=== PATIENT | male | born 1965 ===

== ENCOUNTER 2024-03-23 11:31 | Outpatient (AMB) | payer OTHER, SELFPAY ==
--- NOTE | 2024-03-23 11:41 | MHC.PC.OV ---
Vital Signs 03/23/24 11:55 Height 5 ft 10 in Weight 248 lb 6 oz BMI 35.6 BP 130/70 Blood Pressure Location Rt brachial Position Sitting Respiration 14 Pulse 59 Pulse Source Pulse Oximeter Temp 97.4 F Temp Source Oral Pulse Oximetry (%) 95 Oxygen Delivery Method Room Air Intake Visit Reasons: smoking pipes cleaner leg pain Intake Note: establish care and patient is also having right leg pain andLLQpain pt would like to rule out a hernia Allergies amoxicillin Allergy (Intermediate, Verified 03/23/24 11:46) Abdominal Pain bee venom protein (honey bee) Allergy (Intermediate, Verified 03/23/24 11:46) Swelling droperidol [From Inapsine] Allergy (Intermediate, Verified 03/23/24 11:46) lock jaw prochlorperazine [From Compazine] Allergy (Intermediate, Verified 03/23/24 11:46) lock jaw shellfish derived Allergy (Intermediate, Verified 03/23/24 11:46) Hives Tobacco use date assessed: 03/23/24 Dental Screening Dental Screen Date: 03/23/24 Did you have a dental visit in the last 12 months?: Yes Did you have a dental problem in the last 6 months where you did not have access to dental care?: Yes Was dental information given to patient?: Patient has dentist HPI smoking pipes cleaner leg pain HPI Details Pt 58 y/o male who presents today to establish care. He has a hx of asthma, htn, hyperlipidemia, HF, previous [place] in 1995 (due to stress collapsed vessel ), chronic kidney disease and bph. Previously following with Dr. Majano. He does complain today of bilateral lower leg pain and swelling. The right leg is worse than the left. It has been going on for about 4 years and he states that he has some skin changes because of it. He states that the right leg has this deep red discoloration and there is a little bit on the left leg but not as bad. When he walks a short distance he feels pain in his calves that go up to the back of his thigh. He states at times his right knee is also painful and swollen and he is not sure if that is why he gets the lower leg pain. No foot pain with this. The swelling is a little bit better in the morning and worse as the day goes on. He does also complain today of left lower abdominal pain that started about 4 months ago on and off but has recently been more painful in the last month. He states that he can pinpoint the location it does seem to be worse with certain movements such as straining or lifting his legs up. No nausea, vomiting or diarrhea with this. No constipation. No changes in weight. He has not felt any masses but does worried that this could be a hernia. CV: Follows with Dr. Rust and has an appointment tomorrow. No chest pain, shortness on breath or dizziness. He does report lower leg edema. States that he does have a history of heart failure and does not know his EF. 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 He is compliant with metoprolol 50 mg daily. His cholesterol has been well-controlled with atorvastatin 20 mg. Urology: followed in the past with urology and is on flomax bid. He does not feel that this is very effective. Nephro: last seen about a year ago. states that he has had kidneys close to shutting down a few times. Colonoscopy: about 10 years ago per pt. States that he would like to do a Cologuard instead [facility] Medical History (Updated 03/23/24 @ 12:32 by Jodie Husain PA-C) Asthma Plantar fasciitis Past heart attack High cholesterol Social History (Updated 03/23/24 @ 11:50 by Nitish Levin [facility]) Housing: House Patient Tobacco Use Status: Never used Tobacco e-Cigarette/Vaping Use: Never Used Second Hand Smoke Exposure: No Substance Use Type: Marijuana service: Yes Current occupational status: retired Current occupational exposures/hazards: No Cognitive needs: No Hearing needs: No Vision needs: No Questionnaire PHQ-9 Over the last 2 weeks, how often have you been bothered by any of the following problems? 1. Little interest or pleasure in doing things: not at all 2. Feeling down, depressed, or hopeless: not at all 3. Trouble falling or staying asleep, or sleeping too much: not at all 4. Feeling tired or having little energy: not at all 5. Poor appetite or overeating: not at all 6. Feeling bad about yourself - or that you are a failure or have let yourself or your family down: not at all 7. Trouble concentrating on things, such as reading the newspaper or watching television: not at all 8. Moving or speaking so slowly that other people could have noticed. Or the opposite - being so fidgety or restless that you have been moving around a lot more than usual: not at all 9. Thoughts that you would be better off or of hurting yourself in some way: not at all Total score: 0 Depression Screening Interpretation: Negative Depression Screening Done: Yes 86754 - PHQ-9 Billing: Yes Source: Developed by Drs. Uri Mcintosh, Dana Riggs, José Antonio Elizalde and colleagues, with an educational royal from [employer]. Thrive Questionnaire Date Thrive assessed: 03/23/24 I am a: Patient What is your living situation today?: I have a steady place to live Within the past 12 months, did the food you bought not last and you didn't have the money to get more?: Never true Within the past 12 months, did you worry whether your food would run out before you got money to buy more?: Never true Do you have trouble paying for medicines?: I choose not to answer this question Do you have trouble getting transportation to medical appointments?: No Do you have trouble paying your heating and electricity bill?: No Do you have trouble taking care of your child, family member or friend?: No Do you have trouble with day-to-day activities such as bathing, preparing meals, shopping, managing finances, etc.?: No Are you currently unemployed and looking for a job?: No Are you interested in more education?: No Please select the resources that you would like help with: None Currently or been in a relationship where the following occur: No concerns reported THRIVE Score: 0 AUDIT C Alcohol Use Questionnaire (AUDIT-C) 1. How often do you have a drink containing alcohol?: 2-4 times a month 2. How many drinks containing alcohol do you have on a typical day when you are drinking?: 1 or 2 3. How often do you have six or more drinks on one occasion?: Never Total Score: 2 Score Reviewed/Action Taken: Yes YURIDIA-7 AMB Questionnaire YURIDIA-7 Feeling nervous, anxious, or on edge: 0 = Not at all Not being able to stop or control worryin = Not at all Worrying too much about different things: 0 = Not at all Trouble relaxin = Not at all Being so restless that it is hard to sit still: 0 = Not at all Becoming easily annoyed or irritable: 0 = Not at all Feeling afraid as if something awful might happen: 0 = Not at all Total YURIDIA-7 score (0-4 normal; 5-9 mild; 10-14 moderate; 15-21 severe): 0 Source: Developed by Drs. Uri Mcintosh, Dana Riggs, José Antonio Elizlade and colleagues, with an educational royal from [employer]. ACT Questionnaire In the past 4 weeks, how much of the time did your asthma keep you from getting as much done at work, school or at home?: None of the time During the past 4 weeks, how often have you had shortness of breath?: More than once a day During the past 4 weeks, how often did your asthma symptoms wake you up at night or earlier than usual in the morning?: Not at all During the past 4 weeks, how often have you had to use your rescue inhaler or nebulizer medication?: Not at all How would you rate your asthma control during the past 4 weeks?: Somewhat controlled Score: 19 Physical exam (Primary Care) Vital Signs: Last Vital Signs Temp 97.4 F 03/23/24 11:55 Pulse 59 03/23/24 11:55 Resp 14 03/23/24 11:55 BP 130/70 03/23/24 11:55 Pulse Ox 95 03/23/24 11:55 Oxygen Delivery Method Room Air 03/23/24 11:55 BMI result Body Mass Index 35.6 Tobacco/Smoking Status: Tobacco use Status Tobacco use date assessed 03/23/24 03/23/24 11:57 Patient Tobacco Use Status Never used Tobacco 03/23/24 11:57 e-Cigarette/Vaping Use Never Used 03/23/24 11:57 PHQ-9: PHQ-9 Score PHQ-9: Total score 0 03/23/24 12:18 Depression Screening Interpretation: Negative Thrive Assessment: Date of Thrive Assessment Date Thrive assessed 03/23/24 03/23/24 11:57 Currently or been in a relationship where the following occur: No concerns reported Const Orientation/consciousness: patient oriented x3 HENMT Ears: hearing grossly normal bilaterally Neck Thyroid: Thyroid normal Lymphatic: no lymphadenopathy noted Resp Auscultation: clear to auscultation bilaterally Cardio Rate: regular rate Rhythm: regular rhythm Heart sounds: S1 normal heart sound present and S2 normal heart sound present GI Inspection: Yes normal to inspection Palpation (GI): Soft to palpation and Tenderness to palpation present (GI) in the LLQ Auscultation: normoactive bowel sounds Rectal Exam - Male: Yes deferred Other: No palpable hernia. Exam limited due to body habitus Skin General skin exam: no rashes or lesions noted Neuro General: patient oriented x3, gait normal and no focal motor deficits Extrem Other: There is some right calf tenderness present. Full range of motion of the leg. DP pulse on the right is 1+. DP pulse on the left is 2+. There is 2+ pitting edema of the bilateral lower legs. General: Yes venous stasis dermatitis Coding Level of Care Code New Pt Level 4 (64649) Complex EM visit Add On G2211 Diagnoses Hyperlipidemia E78.5 LLQ abdominal pain R10.32 Pain and swelling of lower leg M79.669; M79.89 Claudication of right lower extremity I73.9 Right knee pain M25.561 Additional Codes PHQ-9 - 85785 - PHQ-9 Billing: Yes ([id number]) Assessment & Plan Assessment & Plan (1) Hyperlipidemia: Code(s): E78.5 - Hyperlipidemia, unspecified Category: Medical Plan: Labs ordered. We will follow up pending test results (2) LLQ abdominal pain: Code(s): R10.32 - Left lower quadrant pain Category: Medical Plan: CT abdomen and pelvis ordered. We had reviewed signs and symptoms of abdominal pain that would require emergent medical treatment including increased pain, fever, nausea, vomiting etc.. He will contact me if anything worsens or changes prior to her follow up (3) Pain and swelling of lower leg: Code(s): M79.669 - Pain in unspecified lower leg; M79.89 - Other specified soft tissue disorders Category: Medical Plan: Ultrasounds ordered. Referral to vascular surgery. (4) Pain and swelling of lower leg: Code(s): M79.669 - Pain in unspecified lower leg; M79.89 - Other specified soft tissue disorders Category: Medical Plan: . (5) Claudication of right lower extremity: Code(s): I73.9 - Peripheral vascular disease, unspecified Category: Medical Plan: . (6) Right knee pain: Code(s): M25.561 - Pain in right knee Category: Medical Plan: xr ordered referral ortho Orders: Orders Complete Blood Count Auto Diff Today E78.5 - Hyperlipidemia, unspecified, R10.32 - Left lower quadrant pain Comprehensive [place]. Panel Fast Today E78.5 - Hyperlipidemia, unspecified, R10.32 - Left lower quadrant pain Lipid Panel Today E78.5 - Hyperlipidemia, unspecified, R10.32 - Left lower quadrant pain XR knee RT 2V Today M25.561 - Pain in right knee, M25.562 - Pain in left knee TSH reflex Free T4 Today E78.5 - Hyperlipidemia, unspecified, R10.32 - Left lower quadrant pain UA CC w/rflx Micro + Cult Today E78.5 - Hyperlipidemia, unspecified, R10.32 - Left lower quadrant pain, Z13.220 - Encounter for screening for lipoid disorders Prostate Specific Antigen Scr Today E78.5 - Hyperlipidemia, unspecified, R10.32 - Left lower quadrant pain, Z01.89 - Encounter for other specified special examinations US venous duplex LE BI Today M79.669 - Pain in unspecified lower leg, M79.89 - Other specified soft tissue disorders CT abdomen pelvis wo IV con Today R10.32 - Left lower quadrant pain Referrals Vascular Surgery Referral I73.9 - Peripheral vascular disease, unspecified, M79.669 - Pain in unspecified lower leg, M79.89 - Other specified soft tissue disorders Orthopedics Referral M25.561 - Pain in right knee Cologuard Test Z12.11 - Encounter for screening for malignant neoplasm of colon Patient Instructions: Get fasting labs here knee xray ordered- ok to do at [facility] scan ordered for the left lower abdominal pain- they will call to schedule. call me if you do not hear anything in 1 week u/s were ordered of the legs due to pain and swelling- again they call you to book i have referred you to orthopedics for the knee pain referral for vascular doc due to pain in calves with walking and needing to rest, ?claudication- you do have a slightly decreased pulse in the right foot. i ordered a cologuard- this will be mailed to you short term follow up in 1 month
[2024-03-23 11:55] VITALS: BP 130/70; PULSE 59; RESP 14; TEMP 36.3; O2SAT 95; BMI 35.6
== END 2024-03-23 12:39 | disposition home or self-care (01) ==
PROVIDERS: PCP Internal Medicine; Visit Provider Physician Assistant
DX: E78.5 Hyperlipidemia, unspecified (principal); I73.9 Peripheral vascular disease, unspecified; R10.32 Left lower quadrant pain; M79.661 Pain in right lower leg; M79.89 Other specified soft tissue disorders; M25.561 Pain in right knee

== ENCOUNTER → 2024-03-23 11:31 | Outpatient (BNVA) | payer OTHER, SELFPAY | PROVIDERS: PCP Internal Medicine; Visit Provider Physician Assistant | DX: M79.89 Other specified soft tissue disorders (principal); M79.604 Pain in right leg; E78.5 Hyperlipidemia, unspecified; R10.32 Left lower quadrant pain; I73.9 Peripheral vascular disease, unspecified; M25.561 Pain in right knee; I10 Essential (primary) hypertension; J45.909 Unspecified asthma, uncomplicated; I25.2 Old myocardial infarction; Z79.899 Other long term (current) drug therapy | CPT/HCPCS: 96127; 96160 ==

== ENCOUNTER 2024-03-25 10:44 | Outpatient (REF) | payer OTHER, SELFPAY ==
[2024-03-25 14:00] LABS: MANUAL DIFF FLAG NO
[2024-03-25 14:07] LABS: Basophils Absolute Auto 0.1 X10*3/uL (0.0-0.2); Basophils Percent Auto 1.1 % (0-2); Eosinophils Absolute Auto 0.3 X10*3/uL (0.0-0.4); Eosinophils Percent Auto 4.7 % (0-4); Hematocrit 45.9 % (42.0-52.0); Imm Gran Abs Auto 0.02 X10*3/uL (0.00-0.03); Imm Gran Pct Auto 0.4 % (0.0-0.4); Lymphocytes Absolute Auto 1.1 X10*3/uL (1.2-4.9); Lymphocytes Percent Auto 19.9 % (20-40); Mean Corpuscular HGB Conc 32.7 g/dl (31.0-36.0); Mean Corpuscular Hemoglobin 30.7 pg (27.0-33.0); Mean Corpuscular Volume 93.9 fL (80.0-98.0); Mean Platelet Volume 9.9 fL (9.4-12.4); Monocytes Absolute Auto 0.4 X10*3/uL (0.1-1.2); Monocytes Percent Auto 6.4 % (2-11); Neutrophils Absolute Auto 3.7 x10*3/uL (2.0-8.3); Neutrophils Percent Auto 67.5 % (45-73); Platelet Count 141 X10*3/uL (160-400); Red Blood Count 4.89 X10*6/uL (4.60-5.80); Red Cell Distribution Width 13.6 % (11.0-16.0); White Blood Count 5.5 X10*3/uL (4.8-10.8)
[2024-03-25 14:24] LABS: Appearance Urine Clear; Color Urine Yellow; Glucose Urine UA Negative (Negative); Leukocyte Esterase Urine Negative (Negative); Nitrite Urine Negative (Negative); PH 6.5 (5.0-9.0); Specific Gravity - Urine 1.015 (1.005-1.025); Urine Blood Negative (Negative); Urine Ketones Negative (Negative); Urine Protein Negative (Neg-Trace)
[2024-03-25 14:25] LABS: Alanine Aminotransferase 38 U/L (0-40); Albumin Level 4.2 g/dL (3.5-5.0); Alkaline Phosphatase 80 U/L (39-117); Anion Gap 9 (12-20); Aspartate Amino Transferase 26 U/L (5-37); Bilirubin Total 1.1 mg/dL (0.0-1.0); Blood Urea Nitrogen 18 mg/dL (9-16); Calcium 9.2 mg/dL (8.4-10.2); Carbon Dioxide 31 mmol/L (22-29); Chloride 106 mmol/L (96-108); Cholesterol 136 mg/dL (<200); Estimated Glomerular Filt Rate > 60; Glucose Fasting 91 mg/dL (60-99); HDL Cholesterol 56 mg/dL (>40); LDL Cholesterol Calculated 65 mg/dL (<100); Potassium 4.2 mmol/L (3.3-5.1); Sodium 142 mmol/L (135-145); Total Protein 6.8 g/dL (6.5-8.0); Triglycerides 77 mg/dL (<150)
[2024-03-25 14:44] LABS: TSH reflex Free T4 0.16 uIU/mL (0.32-4.0)
[2024-03-25 15:28] LABS: Free T4 (Free Thyroxine) 1.28 ng/dL (0.71-1.85)
== END 2024-03-25 10:45 | disposition home or self-care (01) ==
LOC: HO.WFDLDS 10:44
PROVIDERS: Visit Provider Physician Assistant
DX: E78.5 Hyperlipidemia, unspecified (principal); R10.32 Left lower quadrant pain; Z01.89 Encounter for other specified special examinations; Z13.220 Encounter for screening for lipoid disorders; Z12.5 Encounter for screening for malignant neoplasm of prostate
CPT/HCPCS: 36415; 80053; 80061; 81003; 84153; 84439; 84443; 85025

== ENCOUNTER 2024-04-05 11:26 | Outpatient (AMB) | payer OTHER, SELFPAY ==
--- NOTE | 2024-04-05 11:29 | A.OFFVIS_ITS ---
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 States both legs are discolored and painful but the right is worse. 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 He states that he first noted the discoloration appx 20y ago and the swelling and pain has worsened over the last 4y. 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 He states he is trying to be more physically active. 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 It has been affecting their daily activities including walking, standing, sitting, and physical activity. It is noted in bilateral legs. Patient denies any previous venous surgery or injections. Patient states he believes he was treated for blood clots s/p [place] in 1995; he states he was on blood thinners for some time Patient denies any history of phlebitis. Trial of compression includes - compression stockings with some relief They now present for vascular evaluation regarding their varicose veins. [facility] Medical History Asthma Plantar fasciitis Past heart attack High cholesterol Social History Housing: House Patient Tobacco Use Status: Never used Tobacco e-Cigarette/Vaping Use: Never Used Second Hand Smoke Exposure: No Substance Use Type: Marijuana service: Yes Current occupational status: retired Current occupational exposures/hazards: No Cognitive needs: No Hearing needs: No Vision needs: No Review of Systems Const Reports as per HPI and Denies weakness ENT Reports Normal hearing present and Denies dizziness Card Reports as per HPI, Denies chest pain, Denies chest pain at rest, Denies chest pain with activity, Denies dyspnea and Denies dyspnea on exertion Resp Reports as per HPI, Denies cough, Denies dyspnea and Denies dyspnea on exertion GI Reports as per HPI, Denies abdominal pain, Denies nausea and Denies vomiting Musc Denies numbness Skin/Breast Reports as per HPI, Denies erythema and Denies wounds Neuro Reports Normal hearing present, Denies dizziness, Denies numbness, Denies Sensory deficit (Neuro) and Denies weakness Psych Reports no additional complaints Endo Reports no additional complaints Physical Exam Const General: healthy appearing and no acute distress Orientation/consciousness: patient oriented x3 HEENT Head: Yes normal to inspection Ears: hearing grossly normal bilaterally Mouth: Normal oral and palatal mucosa present Resp Effort & Inspection: normal respiratory effort and able to speak in complete sentences Auscultation: clear to auscultation bilaterally Cardio Jugular venous distension: no JVD Rate: regular rate Rhythm: regular rhythm Heart sounds: S1 normal heart sound present and S2 normal heart sound present Bruits: no abdominal aortic bruits, no carotid bruits, no femoral bruits and no renal bruits Peripheral pulses: Peripheral pulses 2+ throughout GI Inspection: Yes normal to inspection Palpation (GI): No Abdominal aortic bruit present Skin General skin exam: no rashes or lesions noted Wounds: no wounds Hair: normal Neuro General: patient oriented x3 Cranial nerves: Yes Normal hearing present Cognition (Neuro): normal cognition Gait exam (Neuro): Normal gait present Motor exam (neuro): 5/5 motor strength present throughout Sensory Exam: No Sensory deficit (Neuro) Extrem Other: Bilateral lower extremities: darker erythematous discoloration noted from mid- vidales down to the ankles circumferentially. Trace peripheral edema noted. Palpable DP pulses. No wounds or ulcerations noted. CEAP: C - 4 E - primary A - supeficial P - reflux General: Yes normal to inspection, Yes full ROM, Yes capillary refill normal and Yes normal gait Assessment & Plan Assessment & Plan (1) Varicose veins of both lower extremities with inflammation: Code(s): I83.11 - Varicose veins of right lower extremity with inflammation; I83.12 - Varicose veins of left lower extremity with inflammation Category: Medical Plan: Matthew is presenting today on a referral from his PCP for ongoing bilateral lower extremity swelling, pain, and discoloration. His PCP has already ordered a duplex ultrasound, the patient states that it is scheduled for this . I discussed with the patient to give us a call back after the ultrasound has been performed and we will schedule a follow up visit. I discussed the importance of continuing with compression stockings daily as well as elevating his legs while he is sitting. We discussed the importance of physical activity. In short, the patient has evidence of venous insufficiency. I have discussed the pathophysiology with the patient. The patient had an opportunity to ask questions regarding the treatment plan. All questions were answered. Imaging studies, laboratory studies and physical exam results were discussed and reviewed in detail. No major barriers to understanding were identified. The patient expressed understanding and agreement with the above treatment plan. The patient is aware they should contact our office by phone for worsening of the current condition or the appearance of new symptoms. Thank you for allowing me to participate in the vascular care of this patient. If you have any questions or concerns regarding the treatment for the above condition please do not hesitate to contact me. The office telephone contact is [phone]. This note is constructed using voice recognition software. While every effort has been made to ensure accuracy, cfa errors may have been included. Thank you for allowing me to participate in the care of your patient. Yours sincerely, DINORA García Coding Level of Care Code New Pt Level 4 (09319) Diagnoses Varicose veins of both lower extremities with inflammation I83.11; I83.12
== END 2024-04-05 13:20 | disposition home or self-care (01) ==
PROVIDERS: PCP Internal Medicine; Visit Provider Physician Assistant Surgical
DX: I83.11 Varicose veins of right lower extremity with inflammation (principal); I83.12 Varicose veins of left lower extremity with inflammation
CPT/HCPCS: 99204

== ENCOUNTER → 2024-04-05 11:26 | Outpatient (BNVA) | payer OTHER, SELFPAY | PROVIDERS: PCP Internal Medicine; Visit Provider Physician Assistant Surgical ==

== ENCOUNTER 2024-04-07 08:36 | Outpatient (REF) | payer OTHER, SELFPAY ==
--- NOTE | ~2024-04-07 | US_ITS ---
EXAMINATION: US LOWER EXTREMITY VENOUS (REFLUX EXAM), BILATERAL CLINICAL INFORMATION: Pain in the lower extremities. COMPARISON: None. TECHNIQUE: Color flow triplex imaging and compression Doppler was performed to evaluate both the deep and the superficial systems bilaterally. To evaluate the superficial system, the examination was performed in the upright position. Color-flow Doppler ultrasound and compression ultrasound were utilized. In addition, maneuvers were utilized to demonstrate reflux. FINDINGS: 1. DEEP VENOUS ULTRASOUND OF THE RIGHT LOWER EXTREMITY: Common Femoral Vein: Compressible, normal respiratory variation and augmented flow. Femoral Vein: Compressible, normal color flow and augmentation. Popliteal Vein: Compressible, normal augmentation. Deep Reflux: There is no evidence of reflux in the deep system in either the common femoral vein, superficial femoral or the popliteal vein. There is no evidence of a Vann's cyst. 2. SUPERFICIAL ULTRASOUND WITH DOPPLER OF RIGHT LOWER EXTREMITY: GREAT SAPHENOUS VEIN: Saphenofemoral Junction: 0.9 cm; Reflux: 0 ms Proximal Thigh: 0.5 cm; Reflux: 0 ms Mid Thigh: 0.4 cm; Reflux: 0 ms Distal Thigh: 0.4 cm; Reflux: 0 ms At Knee: 0.3 cm; Reflux: 0 ms Proximal Calf: 0.3 cm; Reflux: 2724 ms Mid Calf: 0.3 cm; Reflux: 0 ms Distal Calf: 0.3 cm; Reflux: 0 ms DUPLICATED MEDIAL GREAT SAPHENOUS VEIN: Diameter: 0.3 Reflux: NA DUPLICATED LATERAL GREAT SAPHENOUS VEIN: Diameter: None imaged Reflux: NA SMALL SAPHENOUS VEIN: Saphenopopliteal Junction: 0.5 cm; Reflux: 1612 ms Proximal: 0.2 cm; Reflux: 0 ms Distal: 0.3 cm; Reflux: 976 ms VEIN OF GIACOMINI: Size: NA Reflux: NA PERFORATORS: Location: None imaged Size: NA Reflux: NA VARICOSITIES: Location: None imaged. Size: NA Reflux: NA 3. DEEP VENOUS ULTRASOUND OF THE LEFT LOWER EXTREMITY: Common Femoral Vein: Compressible, normal respiratory variation and augmented flow. Femoral Vein: Compressible, normal color flow and augmentation. Popliteal Vein: Compressible, normal augmentation. Deep Reflux: There is no evidence of reflux in the deep system in either the common femoral vein, superficial femoral or the popliteal vein. There is no evidence of a Vann's cyst. 4. SUPERFICIAL ULTRASOUND WITH DOPPLER OF LEFT LOWER EXTREMITY: GREAT SAPHENOUS VEIN: Saphenofemoral Junction: 1.0 cm; Reflux: 0 ms Proximal Thigh: 0.4 cm; Reflux: 1180 ms Mid Thigh: 0.2 cm; Reflux: 0 ms Distal Thigh: 0.3 cm; Reflux: 0 ms At Knee: 0.2 cm; Reflux: 0 ms Proximal Calf: 0.3 cm; Reflux: 0 ms Mid Calf: 0.3 cm; Reflux: 0 ms Distal Calf: 0.4 cm; Reflux: 0 ms DUPLICATED MEDIAL GREAT SAPHENOUS VEIN: Diameter: None imaged Reflux: NA DUPLICATED LATERAL GREAT SAPHENOUS VEIN: Diameter: 0.4 Reflux: NA SMALL SAPHENOUS VEIN: Saphenopopliteal Junction: 0.5 cm; Reflux: 0 ms Proximal: 0.4 cm; Reflux: 0 ms Distal: 0.3 cm; Reflux: 0 ms VEIN OF GIACOMINI: Size: 0.2 Reflux: NA PERFORATORS: Location: None imaged Size: NA Reflux: NA VARICOSITIES: Location: None Imaged Size: NA Reflux: NA US/US venous duplex LE BI IMPRESSION: Right: Venous insufficiency right great saphenous vein, below knee and right small saphenous vein. Left: Venous insufficiency left great saphenous vein at the proximal thigh. Electronically signed by: Rohit Silva MD 04/11/2024 07:46 AM EST
--- NOTE | ~2024-04-07 | XR_ITS ---
CLINICAL HISTORY: M25.561 - Pain in right knee Exam: AP and lateral views of the right knee. Comparison: None. Findings: Moderate genu varum. There is 7 mm of lateral translation of the tibia in relation to the femur. Severe degenerative change of the medial compartment with osteophyte formation and joint space narrowing resulting in [id number] alignment. Mild degenerative change of the lateral compartment and patellofemoral joint. No acute fracture. Moderate-sized knee joint effusion. Impression: Tricompartmental osteoarthritis, most pronounced within the medial compartment as above. This document has been electronically signed by: Leonardo Smith MD on 04/08/2024 09:04:08
== END 2024-04-07 08:37 | disposition home or self-care (01) ==
LOC: HO.US 08:36
PROVIDERS: PCP Internal Medicine; Visit Provider Physician Assistant
DX: I87.2 Venous insufficiency (chronic) (peripheral) (principal); M25.561 Pain in right knee; M25.562 Pain in left knee; M79.669 Pain in unspecified lower leg; M79.89 Other specified soft tissue disorders
CPT/HCPCS: 73560; 93970

== ENCOUNTER → 2024-04-07 08:46 | Outpatient (BNV) | payer OTHER, SELFPAY | PROVIDERS: PCP Internal Medicine; Visit Provider Radiology Diagnostic Radiology | DX: M79.604 Pain in right leg (principal); M79.605 Pain in left leg | CPT/HCPCS: 73560; 93970 ==

== ENCOUNTER 2024-04-11 09:29 | Outpatient (REF) | payer OTHER, SELFPAY ==
[2024-04-11 11:26] LABS: MANUAL DIFF FLAG NO
[2024-04-11 11:34] LABS: Basophils Absolute Auto 0.1 X10*3/uL (0.0-0.2); Basophils Percent Auto 0.8 % (0-2); Eosinophils Absolute Auto 0.3 X10*3/uL (0.0-0.4); Eosinophils Percent Auto 4.2 % (0-4); Hematocrit 46.9 % (42.0-52.0); Hemoglobin 15.3 g/dl (14.0-18.0); Imm Gran Abs Auto 0.02 X10*3/uL (0.00-0.03); Imm Gran Pct Auto 0.3 % (0.0-0.4); Lymphocytes Absolute Auto 1.3 X10*3/uL (1.2-4.9); Lymphocytes Percent Auto 19.6 % (20-40); Mean Corpuscular HGB Conc 32.6 g/dl (31.0-36.0); Mean Corpuscular Hemoglobin 30.7 pg (27.0-33.0); Mean Corpuscular Volume 94.2 fL (80.0-98.0); Mean Platelet Volume 10.3 fL (9.4-12.4); Monocytes Absolute Auto 0.3 X10*3/uL (0.1-1.2); Monocytes Percent Auto 5.2 % (2-11); Neutrophils Absolute Auto 4.5 x10*3/uL (2.0-8.3); Neutrophils Percent Auto 69.9 % (45-73); Platelet Count 144 X10*3/uL (160-400); Red Blood Count 4.98 X10*6/uL (4.60-5.80); Red Cell Distribution Width 13.6 % (11.0-16.0); White Blood Count 6.5 X10*3/uL (4.8-10.8)
[2024-04-11 12:09] LABS: Alanine Aminotransferase 30 U/L (0-40); Albumin Level 4.2 g/dL (3.5-5.0); Alkaline Phosphatase 85 U/L (39-117); Anion Gap 9 (12-20); Aspartate Amino Transferase 25 U/L (5-37); Bilirubin Total 1.1 mg/dL (0.0-1.0); Blood Urea Nitrogen 14 mg/dL (9-16); Calcium 9.6 mg/dL (8.4-10.2); Carbon Dioxide 31 mmol/L (22-29); Chloride 107 mmol/L (96-108); Estimated Glomerular Filt Rate > 60; Glucose Random 103 mg/dL (60-115); Potassium 4.7 mmol/L (3.3-5.1); Sodium 142 mmol/L (135-145)
[2024-04-11 13:01] LABS: Free T4 (Free Thyroxine) 1.21 ng/dL (0.71-1.85)
== END 2024-04-11 09:30 | disposition home or self-care (01) ==
LOC: HO.WFDLDS 09:29
PROVIDERS: Visit Provider Physician Assistant
DX: D69.1 Qualitative platelet defects (principal); R17 Unspecified jaundice; R79.89 Other specified abnormal findings of blood chemistry; E03.9 Hypothyroidism, unspecified
CPT/HCPCS: 36415; 80053; 84439; 84443; 85025

== ENCOUNTER 2024-04-26 10:25 | Outpatient (AMB) | payer OTHER, SELFPAY ==
--- NOTE | 2024-04-26 11:10 | MHC.OFFWIV ---
Intake Vital Signs 04/26/24 11:14 Height 5 ft 10 in Weight 245 lb 6 oz BMI 35.2 BP 120/72 Blood Pressure Location Lt brachial Position Sitting Respiration 16 Pulse 59 Pulse Source Pulse Oximeter Temp 97.9 F Temp Source Oral Pulse Oximetry (%) 95 Oxygen Delivery Method Room Air Intake Visit Reasons: something in eye/eye pain (left) Intake Note: Splashed wtih sink water in left eye a week ago. Patient Tobacco Use Status: Never used Tobacco Allergies amoxicillin Allergy (Intermediate, Verified 04/26/24 11:13) Abdominal Pain bee venom protein (honey bee) Allergy (Intermediate, Verified 04/26/24 11:13) Swelling droperidol [From Inapsine] Allergy (Intermediate, Verified 04/26/24 11:13) lock jaw prochlorperazine [From Compazine] Allergy (Intermediate, Verified 04/26/24 11:13) lock jaw shellfish derived Allergy (Intermediate, Verified 04/26/24 11:13) Hives HPI HPI Comments History of Present Illness Details 58-year-old male presenting with left eye irritation following an incident one week ago where he was splashed with contaminated drain water while cleaning. He reports feeling a sensation similar to pressure & irritation in the left eye, though he has not observed any redness or swelling. The sensation of something being in the eye persists, although no foreign body is visible. The patient denies experiencing any sensation of sand or grit in the eye or noticing any swelling. He mentions a minor headache associated with the eye irritation but reports that vision in the affected eye remains intact. ollowing the initial exposure, the patient did flush the eye with water, both immediately post-incident and during subsequent showers. T Td2002 There is no history of recent eye examinations, with the last one conducted approximately two years ago. Exam Awake alert NAD PERRLA, EOMI, no drainage, no lid edema, no photophobia, no erythema vision WNL TM mild congestion on L Turbinates edematous, pale on L side Speaking in full sentences Discussion Notes During the consultation, I discussed the absence of visible eye injury and the plan to prescribe an antibiotic eye ointment to mitigate any potential infection from the trauma. We reviewed the patient's allergies to ensure the prescribed treatments would not interfere. The ointment may cause temporary blurred vision due to its ointment base, making the eyes appear greasy; however, I advised against using tissues to wipe it to avoid irritation. Furthermore, a tetanus booster is recommended given the last recorded Tdap being in 2002. I also emphasized the importance of following up with an addiction specialist for a thorough examination, referring the patient to Dr. Quiñones, an eye doctor located conveniently across from the patient's residence. The necessity of scheduling promptly and the steps to do so were communicated, including providing information for [facility]. Finally, we arranged for his tetanus shot to be administered during the same visit. Plan I prescribed an antibiotic eye ointment tailored to the patient's allergy profile to address the potential eye trauma and prevent infection following exposure to contaminated water. The application of this ointment, though potentially visually impairing while in use, should aid in symptom resolution. Ensuring tetanus prophylaxis, the patient will receive a booster to align with current recommendations, thereby mitigating the risk of tetanus infection. Furthermore, due to the ongoing eye symptoms and for preventive measures, I recommended an addiction specialist referral for comprehensive ocular evaluation to rule out any underlying issues that were not visible in the initial examination. The patient was guided to promptly engage with [facility] and made aware of expected side effects and follow-up steps. These interventions aim to thoroughly address the current presenting concern and uphold preventive health measures. Patient was informed and verbally consented to the use of an ambient scribe for clinic note documentation during this visit. [facility] Medical History Asthma Plantar fasciitis Past heart attack High cholesterol Social History Housing: House Patient Tobacco Use Status: Never used Tobacco e-Cigarette/Vaping Use: Never Used Second Hand Smoke Exposure: No Substance Use Type: Marijuana service: Yes Current occupational status: retired Current occupational exposures/hazards: No Cognitive needs: No Hearing needs: No Vision needs: No Physical Exam Vital Signs: Last Vital Signs Temp 97.9 F 04/26/24 11:14 Pulse 59 04/26/24 11:14 Resp 16 04/26/24 11:14 BP 120/72 04/26/24 11:14 Pulse Ox 95 04/26/24 11:14 Oxygen Delivery Method Room Air 04/26/24 11:14 BMI result Body Mass Index 35.2 Immunizations Boostrix Tdap 2.5 Lf unit-8 mcg-5 Lf/0.5 mL intramuscular syringe Performing Provider: WILNER Mosley Performing Location: [facility] [place] [facility] Administered by: Eliana Khan CMA on 04/26/24 14:01 Dose Route Admin Location Dispensed Lot Number Expiration Date NDC Dog Daycare Provider 0.5 mL IM Left Deltoid 0.5 mL [id number] 04/06/26 [id number] RecordSled VIS Given Date VIS Provided VIS Publication Date 04/26/24 Single Vaccine 20 Eligibility Eligibility Date Funding Source Not [facility] Eligible 04/26/24 Private Assessment & Plan Assessment & Plan (1) Left eye trauma: Code(s): S05.92XA - Unspecified injury of left eye and orbit, initial encounter Qualifiers: Encounter type: initial encounter Qualified Code(s): S05.92XA - Unspecified injury of left eye and orbit, initial encounter (2) Need for Tdap vaccination: Code(s): Z23 - Encounter for immunization Plan . Orders: Orders TDaP Immunization Today Z23 - Encounter for immunization Referrals Ophthalmology Referral S05.92XA - Unspecified injury of left eye and orbit, initial encounter Medications: New erythromycin 0.5 inches ophthalmic (eye) BID 5 days 3.5 grams 0RF Boostrix Tdap (diphth,pertus(acell),tetanus) 0.5 mL IM ONCE 0.5 mL 0RF NS Z23 - Encounter for immunization Patient Instructions: Patient Instructions - Apply the antibiotic eye ointment twice daily for five days to the affected left eye. - Avoid wiping the eye with tissues after applying the ointment; instead, use a clean cotton cloth. - Be aware of potential temporary blurred vision and sensitivity to light while using the ointment. - Schedule an eye exam with [facility] for further assessment of the eye. - Receive the tetanus booster during this visit. - Follow up with primary care physician Jodie as needed. - Contact [facility] to schedule an appointment rather than waiting for their call. Coding Level of Care Code Est Pt Level 3 (22476) Diagnoses Left eye injury, initial encounter S05.92XA Encounter type: initial encounter Need for Tdap vaccination Z23
[2024-04-26 11:14] VITALS: BP 120/72; PULSE 59; RESP 16; TEMP 36.6; O2SAT 95; BMI 35.2
== END 2024-04-26 11:53 | disposition home or self-care (01) ==
LOC: HO.HMCWIW 10:25
PROVIDERS: PCP Physician Assistant; Visit Provider Nurse Practitioner Family
DX: S05.92XA Unspecified injury of left eye and orbit, initial encounter (principal); Z23 Encounter for immunization

== ENCOUNTER → 2024-04-26 10:25 | Outpatient (BNVA) | payer OTHER, SELFPAY | PROVIDERS: PCP Physician Assistant; Visit Provider Nurse Practitioner Family | DX: S05.92XA Unspecified injury of left eye and orbit, initial encounter (principal); Z23 Encounter for immunization; X58.XXXA Exposure to other specified factors, initial encounter; Y93.E9 Activity, other interior property and clothing maintenance; Y92.9 Unspecified place or not applicable; Y99.9 Unspecified external cause status | CPT/HCPCS: 90471; 90715 ==

== ENCOUNTER 2024-04-27 08:25 | Outpatient (REF) | payer OTHER, SELFPAY ==
--- NOTE | ~2024-04-27 | XR_ITS ---
CLINICAL HISTORY: M25.562 - Pain in left knee 1v AP Standing Bilateral knees Comparison: CR - XR KNEE RT 2V - 04/07/24 08:57 EST Findings: Upright image of both knees identified. No fractures or dislocations. Mild joint space narrowing in the medial compartments, right more than left. No joint effusion. No radiopaque foreign body. IMPRESSION: 1. No acute findings. This document has been electronically signed by: Ezequiel Espinosa MD on 04/27/2024 22:15:17
--- NOTE | ~2024-04-27 | XR_ITS ---
CLINICAL HISTORY: M25.569 - Pain in unspecified knee 1 view right knee Comparison: DX - XR KNEE LT 1V - 04/27/24 11:09 EST CR - XR KNEE RT 2V - 04/07/24 08:57 EST Findings: Single sunrise view of the right knee obtained. Bones intact. No dislocations. No significant arthritic change or erosions. No radiopaque foreign body. IMPRESSION: 1. No acute findings. This document has been electronically signed by: Ezequiel Espinosa MD on 04/27/2024 20:58:58
== END 2024-04-27 08:26 | disposition home or self-care (01) ==
LOC: HO.HOSX 08:25
PROVIDERS: Visit Provider Physician Assistant
DX: M17.11 Unilateral primary osteoarthritis, right knee (principal); M25.562 Pain in left knee
CPT/HCPCS: 73560

== ENCOUNTER 2024-04-27 10:55 | Outpatient (AMB) | payer OTHER, SELFPAY ==
[2024-04-27 11:23] VITALS: BMI 35.2
--- NOTE | 2024-04-27 11:23 | MHC.OFFVIS ---
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 Patient has previously seen vascular for concerns of bilateral lower leg pain and swelling, Right>Left. Patient reports that he has had this pain for about 4-5 years now. He has seen physical therapy with no relief. His pain is felt from the foot all the way up to the groin area. The knees pop and snap with bending. He also complaints of left hip pain. Denies numbness and tingling Allergies amoxicillin Allergy (Intermediate, Verified 04/26/24 11:13) Abdominal Pain bee venom protein (honey bee) Allergy (Intermediate, Verified 04/26/24 11:13) Swelling droperidol [From Inapsine] Allergy (Intermediate, Verified 04/26/24 11:13) lock jaw prochlorperazine [From Compazine] Allergy (Intermediate, Verified 04/26/24 11:13) lock jaw shellfish derived Allergy (Intermediate, Verified 04/26/24 11:13) Hives Medication List - Last Reconciled 04/27/24 by Cheko Trinidad PA-C albuterol sulfate 90 mcg/actuation 1 puff inhalation Q4-6H PRN atorvastatin 20 mg PO DAILY budesonide-formoterol 160-4.5 mcg/actuation (Symbicort) 2 puffs inhalation BID PRN erythromycin 0.5 inches ophthalmic (eye) BID 5 days metoprolol succinate ER 50 mg PO DAILY tamsulosin 0.4 mg PO BID HPI HPI PAIN MEDICINE PHYSICIAN- Right knee pain: Details: 58-year-old gentleman presents to the office today for pain in the right knee. He states the pain is worse with prolonged walking and standing. He was seen vascular for lower leg pain. He had an ultrasound which showed bilateral venous insufficiency. [facility] Medical History Asthma Plantar fasciitis Past heart attack High cholesterol Social History Housing: House Patient Tobacco Use Status: Never used Tobacco e-Cigarette/Vaping Use: Never Used Second Hand Smoke Exposure: No Substance Use Type: Marijuana service: Yes Current occupational status: retired Current occupational exposures/hazards: No Cognitive needs: No Hearing needs: No Vision needs: No Review of Systems Const All systems reviewed & are unremarkable except as noted in HPI and below Physical Exam Vital Signs: BMI result Body Mass Index 35.2 Const General: cooperative and no acute distress Orientation/consciousness: patient oriented x3 Resp Effort & Inspection: normal respiratory effort and able to speak in complete sentences Cardio Peripheral pulses: Peripheral pulses 2+ throughout Neuro General: patient oriented x3 Extrem Other: Right knee skin intact, no erythema or joint effusion. Tenderness along the medial joint line. ROM full with crepitus. Negative steinmans. No ligamentous laxity. NVI. Results Reviewed Results Reviewed: Xrays were obtained in the office today and personally reviewed by me of the right knee show moderate medial compartment narrowing Assessment & Plan Assessment & Plan (1) Osteoarthritis of right knee: Code(s): M17.11 - Unilateral primary osteoarthritis, right knee Category: Medical Plan: We discussed options which include PT, NSAIDs and injections. He will defer on the injection today and proceed with PT and NSAIDs. He was fit for genumen knee brace, If symptoms persist she will contact me for an injection, otherwise, prn. Orders: Orders XR knee RT 2V Today M25.569 - Pain in unspecified knee XR knee LT 1V Today M25.562 - Pain in left knee PT Evaluation and Treatment Today M17.11 - Unilateral primary osteoarthritis, right knee Coding Level of Care Code Est Pt Level 3 (63031) Complex EM visit Add On G2211 Diagnoses Osteoarthritis of right knee M17.11
== END 2024-04-27 11:56 | disposition home or self-care (01) ==
PROVIDERS: PCP Internal Medicine; Visit Provider Physician Assistant
DX: M17.11 Unilateral primary osteoarthritis, right knee (principal)
CPT/HCPCS: 99203

== ENCOUNTER → 2024-04-27 11:09 | Outpatient (BNV) | payer OTHER, SELFPAY | PROVIDERS: Visit Provider Radiology Diagnostic Radiology | DX: M25.562 Pain in left knee (principal); M25.561 Pain in right knee | CPT/HCPCS: 73560 ==

== ENCOUNTER 2024-05-05 10:17 | Outpatient (AMB) | payer OTHER, SELFPAY ==
--- NOTE | 2024-05-05 10:22 | A.OFFVIS_ITS ---
Intake Visit Reasons: follow up s/p US 04/07/24 Intake Note: Patient presents for follow up US performed on 04/07/24. No complaints. Accompanied by: Self / Same As Patient Allergies amoxicillin Allergy (Intermediate, Verified 05/05/24 10:23) Abdominal Pain bee venom protein (honey bee) Allergy (Intermediate, Verified 05/05/24 10:23) Swelling droperidol [From Inapsine] Allergy (Intermediate, Verified 05/05/24 10:23) lock jaw prochlorperazine [From Compazine] Allergy (Intermediate, Verified 05/05/24 10:23) lock jaw shellfish derived Allergy (Intermediate, Verified 05/05/24 10:23) Hives HPI HPI follow up s/p US 04/07/24: Details: Very pleasant 58-year-old gentleman presents for follow-up regarding venous disease. He reports that he has swelling right more so than left. He has noted progressive swelling over the last 4 years. 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 Does use compression with minimal relief. He is concerned about the overall status of his legs and somewhat of his skin discoloration. Now presents for follow-up with venous insufficiency testing. [facility] Medical History Asthma Plantar fasciitis Past heart attack High cholesterol Social History Housing: House Patient Tobacco Use Status: Never used Tobacco e-Cigarette/Vaping Use: Never Used Second Hand Smoke Exposure: No Substance Use Type: Marijuana service: Yes Current occupational status: retired Current occupational exposures/hazards: No Cognitive needs: No Hearing needs: No Vision needs: No Review of Systems Const Reports as per HPI ENT Reports no additional complaints Card Denies chest pain, Denies chest pain at rest and Denies chest pain with activity Resp Denies chest congestion and Denies cough GI Reports no additional complaints Musc Details: pain over varicosities, aching of lower extremities, swelling, cramping, heaviness and tiredness, itching Denies abnormal gait Skin/Breast Reports pruritus and Denies wounds Neuro Reports no additional complaints and Denies abnormal gait Psych Denies no additional complaints Physical Exam Const General: cooperative, healthy appearing and comfortable Orientation/consciousness: oriented to person, oriented to place and oriented to time Neck Carotids: no bruits Chest Chest palpation & inspection: normal inspection of the chest and normal palpation of entire chest wall Resp Effort & Inspection: normal respiratory effort and able to speak in complete sentences Cardio Rate: regular rate Heart sounds: S1 normal heart sound present and S2 normal heart sound present Peripheral pulses: Peripheral pulses 2+ throughout GI Inspection: Yes normal to inspection Skin Other: +2 edema CEAP Classification C4 - skin color changes Ep - Etiology Primary As - superficial veins P - reflux General skin exam: dry skin Neuro General: oriented to person, oriented to place and oriented to time Extrem Right lower extremity: full ROM, normal capillary refill and edema Left lower extremity: full ROM, normal capillary refill and edema Psych Mental Status: mental status grossly normal Results Reviewed Results Reviewed: Brief summary of venous insufficiency testing is as follows: right great saphenous vein: Focally positive at knee right small saphenous vein: Positive right accessory vein: none present left great saphenous vein: Focally positive proximal thigh left small saphenous vein: negative left accessory vein: none present Please note there is no evidence of any venous aneurysms or significant tortuosity Assessment & Plan Assessment & Plan (1) Varicose veins of right lower extremity with inflammation: Code(s): I83.11 - Varicose veins of right lower extremity with inflammation Category: Medical Plan: This patient has varicose veins with inflammation. They continue to be a source of discomfort for the patient. The patient has tried conservative treatment with compression, leg elevation and exercise program for over 3 months time. They have been compliant with all treatment. This has provided minimal relief for the patient. I do not anticipate this course of treatment will alter the underlying etiology. The patient has been scheduled for lower extremity venous treatment inclusive of --- right small saphenous vein radiofrequency abla tion. Risks, benefits, and complications of this procedure has been discussed in detail with the patient including but not limited to bleeding, infection, and the development of a DVT. The patient has demonstrated a clear understanding and has consented. We will schedule the patient as soon as possible. Thank you for allowing us to participate in this patient's care. If there are any quest ions or concerns please do not hesitate to contact us. Coding Level of Care Code Est Pt Level 4 (07173) Diagnoses Varicose veins of right lower extremity with inflammation I83.11
== END 2024-05-05 10:57 | disposition home or self-care (01) ==
PROVIDERS: PCP Physician Assistant; Visit Provider Surgery Vascular Surgery
DX: I83.11 Varicose veins of right lower extremity with inflammation (principal)
CPT/HCPCS: 99214

== ENCOUNTER 2024-05-12 09:20 | Outpatient (AMB) | payer OTHER, SELFPAY ==
--- NOTE | 2024-05-12 09:31 | MHC.PC.OV ---
Vital Signs 05/12/24 09:36 Height 5 ft 10 in Weight 241 lb 4 oz BMI 34.6 BP 126/68 Blood Pressure Location Lt brachial Position Sitting Respiration 16 Pulse 63 Pulse Source Pulse Oximeter Temp 98.2 F Temp Source Oral Pulse Oximetry (%) 96 Oxygen Delivery Method Room Air Intake Visit Reasons: F/U labs & pain Intake Note: Follow up labs. Feeling fatigued, dizzy, diarrhea, nausea. Symptoms started two weeks ago. Seemed to start after taking antibiotic. Completed antibitotic yesterday. Bobbin Coil Winder Required: No Allergies amoxicillin Allergy (Intermediate, Verified 05/12/24 09:32) Abdominal Pain bee venom protein (honey bee) Allergy (Intermediate, Verified 05/12/24 09:32) Swelling droperidol [From Inapsine] Allergy (Intermediate, Verified 05/12/24 09:32) lock jaw prochlorperazine [From Compazine] Allergy (Intermediate, Verified 05/12/24 09:32) lock jaw shellfish derived Allergy (Intermediate, Verified 05/12/24 09:32) Hives Medication List - Last Reconciled 05/12/24 by Jodie Husain PA-C albuterol sulfate 90 mcg/actuation 1 puff inhalation Q4-6H PRN atorvastatin 20 mg PO DAILY budesonide-formoterol 160-4.5 mcg/actuation (Symbicort) 2 puffs inhalation BID PRN metoprolol succinate ER 50 mg PO DAILY tamsulosin 0.4 mg PO BID Tobacco use date assessed: 03/23/24 Dental Screening Dental Screen Date: 03/23/24 HPI F/U labs & pain HPI Details History of Present Illness The patient is a 58-year-old male presenting with persistent headaches and dizziness, which started approximately two to three weeks ago. The patient reports these headaches as pounding and pressure-like, primarily located in the back of the head, sometimes associated with frontal sinus tenderness. The headaches typically precede dizziness and are exacerbated by head movement. The patient also reports daily nasal congestion, more pronounced when lying down, and describes the headaches as similar to episodes experienced at the end of summer or the beginning of fall, during which time he worried about possible small bruises on the head. dizziness is described as spinning and off-balance, with no associated chest pain or localized weakness. The patient has been using erythromycin ointment and neomycin/polymyxin B eye drops following a referral to an rn field case manager for an eye issue linked to dirty water exposure. However, he doubts the antibiotics are causing the current symptoms since they have been discontinued. Additionally, the patient continues to experience lower abdominal pain initially presenting six months ago on the left side. He has intermittent, nonspecific abdominal pain is associated with nausea and diarrheal episodes, without exacerbation by the recent headaches and dizziness. Orthopedically, the patient is managing right knee osteoarthritis with a knee brace and has been referred for physical therapy, pending scheduling. The knee condition persists, with treatment primarily conservative. The patient also mentions chronic varicose veins with plans for scopic ablation to address related symptoms. Recently followed with his fastener technologist and states his heart is good . Sees Dr. Rust. Health Maintenance - Encourage consistent use of Anuradha for allergy management. - Referral for physical therapy for osteoarthritis management. - Consideration of sinus disease as contributory to symptoms. - Pending abdominal CT scan evaluation for persisting pain. - Initiate referral for head MRI to evaluate persistent neurological symptoms. Social History Review of Systems - Head and Neck: Reports persistent pounding headaches, nasal congestion. - Neurological: Reports dizziness, generalized weakness. - Gastrointestinal: Reports nausea, diarrhea, and left lower abdominal pain. - Musculoskeletal: Reports right knee pain with existing osteoarthritis diagnosis. Physical Exam General: Well developed, well nourished, in no acute distress. Appears stated age. HEENT: Nasal mucosa erythematous and edematous. Purulent drainage noted. Mild maxillary sinus tenderness present. TMs noted to have small effusions bilaterally. Hearing grossly intact. Cardiac: RRR, no murmurs Lungs: clear, equal breath sounds Abdomen: soft, no CVA tenderness, tenderness noted in the left lower quadrant. No rebound or guarding Extremities: no edema, varicose veins noted, right knee osteoarthritis Neuro: alert, oriented x3, mood appropriate, Cranial nerves 2-12 grossly intact. Ssuoyv-lw-bpjw and heel-to-toe walking without abnormality. Negative Romberg. Strength is symmetrical and 5/5 throughout. Sensation intact. Plan - Plan diagnostic workup with MRI to investigate possible neurological etiology for persistent headache and dizziness, considering sinus involvement as a potential cause. - Begin Anuradha to address symptoms of congestion, potentially of allergic origin, pending consistent use for relief. - Initiate doxycycline treatment to address possible sinus infection, while considering existing allergies as an alternative to Augmentin. - Reattempt approval for abdominal CT scan to further evaluate persistent unexplained abdominal pain. - Ensure follow-up appointments are scheduled post-MRI and CT scan to review results and adjust management accordingly. Prescribe supportive management for knee osteoarthritis with physical therapy engagement once scheduled. - Educate the patient on the risks, benefits, and potential side effects of each new medication introduced to their regimen. - Advise the patient to seek emergency medical care if symptoms worsen, particularly if neurological symptoms intensify. [facility] Medical History Asthma Plantar fasciitis Past heart attack High cholesterol Social History (Updated 05/12/24 @ 09:38 by Eliana Khan [facility]) Housing: House Alcohol intake: current Patient Tobacco Use Status: Never used Tobacco e-Cigarette/Vaping Use: Never Used Second Hand Smoke Exposure: No Substance Use Type: Marijuana service: Yes Current occupational status: retired Current occupational exposures/hazards: No Cognitive needs: No Hearing needs: No Vision needs: No Questionnaire Thrive Questionnaire Date Thrive assessed: 03/23/24 I am a: Patient What is your living situation today?: I have a steady place to live Within the past 12 months, did the food you bought not last and you didn't have the money to get more?: Never true Within the past 12 months, did you worry whether your food would run out before you got money to buy more?: Never true Do you have trouble paying for medicines?: I choose not to answer this question Do you have trouble getting transportation to medical appointments?: No Do you have trouble paying your heating and electricity bill?: No Do you have trouble taking care of your child, family member or friend?: No Do you have trouble with day-to-day activities such as bathing, preparing meals, shopping, managing finances, etc.?: No Are you currently unemployed and looking for a job?: No Are you interested in more education?: No Please select the resources that you would like help with: None Currently or been in a relationship where the following occur: No concerns reported THRIVE Score: 0 Physical exam (Primary Care) Vital Signs: Last Vital Signs Temp 98.2 F 05/12/24 09:36 Pulse 63 05/12/24 09:36 Resp 16 05/12/24 09:36 BP 126/68 05/12/24 09:36 Pulse Ox 96 05/12/24 09:36 Oxygen Delivery Method Room Air 05/12/24 09:36 BMI result Body Mass Index 34.6 Tobacco/Smoking Status: Tobacco use Status Tobacco use date assessed 03/23/24 05/12/24 09:35 Patient Tobacco Use Status Never used Tobacco 05/12/24 09:38 e-Cigarette/Vaping Use Never Used 05/12/24 09:38 Thrive Assessment: Date of Thrive Assessment Date Thrive assessed 03/23/24 05/12/24 09:35 Currently or been in a relationship where the following occur: No concerns reported Coding Level of Care Code Est Pt Level 4 (74237) Complex EM visit Add On G2211 Diagnoses LLQ abdominal pain R10.32 Diarrhea R19.7 Nausea R11.0 Generalized weakness R53.1 New daily persistent headache G44.52 Dizziness R42 Assessment & Plan Assessment & Plan (1) LLQ abdominal pain: Code(s): R10.32 - Left lower quadrant pain Category: Medical (2) Diarrhea: Code(s): R19.7 - Diarrhea, unspecified Category: Medical (3) Nausea: Code(s): R11.0 - Nausea Category: Medical (4) Generalized weakness: Code(s): R53.1 - Weakness Category: Medical (5) New daily persistent headache: Code(s): G44.52 - New daily persistent headache (NDPH) Category: Medical (6) Dizziness: Code(s): R42 - Dizziness and giddiness Category: Medical Plan . Orders: Orders CT abdomen pelvis wo IV con Today G44.52 - New daily persistent headache (NDPH), R10.32 - Left lower quadrant pain, R11.0 - Nausea, R19.7 - Diarrhea, unspecified, R42 - Dizziness and giddiness, R53.1 - Weakness UA CC w/rflx Micro + Cult Today G44.52 - New daily persistent headache (NDPH), R11.0 - Nausea, R19.7 - Diarrhea, unspecified, R42 - Dizziness and giddiness, R53.1 - Weakness, Z13.220 - Encounter for screening for lipoid disorders Comprehensive Met. Panel Today G44.52 - New daily persistent headache (NDPH), R11.0 - Nausea, R19.7 - Diarrhea, unspecified, R42 - Dizziness and giddiness, R53.1 - Weakness TSH reflex Free T4 Today G44.52 - New daily persistent headache (NDPH), R11.0 - Nausea, R19.7 - Diarrhea, unspecified, R42 - Dizziness and giddiness, R53.1 - Weakness MR head/brain wo con Today G44.52 - New daily persistent headache (NDPH), R42 - Dizziness and giddiness, R53.1 - Weakness Medications: New doxycycline hyclate 100 mg PO BID 20 tabs 0RF
[2024-05-12 09:36] VITALS: BP 126/68; PULSE 63; RESP 16; TEMP 36.8; O2SAT 96; BMI 34.6
== END 2024-05-12 10:23 | disposition home or self-care (01) ==
PROVIDERS: PCP Physician Assistant; Visit Provider Physician Assistant
DX: R10.32 Left lower quadrant pain (principal); R19.7 Diarrhea, unspecified; R11.0 Nausea; R53.1 Weakness; G44.52 New daily persistent headache (NDPH); R42 Dizziness and giddiness

== ENCOUNTER 2024-05-12 10:13 | Outpatient (REF) | payer OTHER, SELFPAY ==
[2024-05-12 14:29] LABS: MANUAL DIFF FLAG NO
[2024-05-12 14:36] LABS: Basophils Absolute Auto 0.1 X10*3/uL (0.0-0.2); Basophils Percent Auto 0.8 % (0-2); Eosinophils Absolute Auto 0.2 X10*3/uL (0.0-0.4); Eosinophils Percent Auto 2.5 % (0-4); Hematocrit 48.3 % (42.0-52.0); Hemoglobin 15.5 g/dl (14.0-18.0); Imm Gran Abs Auto 0.02 X10*3/uL (0.00-0.03); Imm Gran Pct Auto 0.3 % (0.0-0.4); Lymphocytes Absolute Auto 1.2 X10*3/uL (1.2-4.9); Lymphocytes Percent Auto 15.3 % (20-40); Mean Corpuscular HGB Conc 32.1 g/dl (31.0-36.0); Mean Corpuscular Hemoglobin 30.1 pg (27.0-33.0); Mean Corpuscular Volume 93.8 fL (80.0-98.0); Mean Platelet Volume 10.1 fL (9.4-12.4); Monocytes Absolute Auto 0.4 X10*3/uL (0.1-1.2); Neutrophils Absolute Auto 5.8 x10*3/uL (2.0-8.3); Neutrophils Percent Auto 76.1 % (45-73); Platelet Count 153 X10*3/uL (160-400); Red Blood Count 5.15 X10*6/uL (4.60-5.80); Red Cell Distribution Width 13.7 % (11.0-16.0); White Blood Count 7.6 X10*3/uL (4.8-10.8)
[2024-05-12 14:39] LABS: Appearance Urine Clear; Color Urine Dark Yellow; Glucose Urine UA Negative (Negative); Leukocyte Esterase Urine Negative (Negative); Nitrite Urine Negative (Negative); Specific Gravity - Urine >= 1.030 (1.005-1.025); UMIC TRIGGER UACC YES; Urine Blood Negative (Negative); Urine Ketones Trace mg/dL (Negative); Urine Protein 100 (2+) mg/dL (Neg-Trace)
[2024-05-12 14:54] LABS: Bacteria Urine None Seen (None Seen); Calcium Oxalate Crystals Urine Present; Hyaline Casts Urine 0-2 /LPF (0-2); RBC Urine 0-2 /HPF (0-2); Squamous Epithelial Cell Urine 0-2 /HPF (0-2); WBC Urine 0-5 /HPF (0-5)
[2024-05-12 15:26] LABS: Alanine Aminotransferase 30 U/L (0-40); Albumin Level 4.3 g/dL (3.5-5.0); Alkaline Phosphatase 81 U/L (39-117); Anion Gap 14 (12-20); Aspartate Amino Transferase 25 U/L (5-37); Bilirubin Direct 0.4 mg/dL (0.0-0.5); Bilirubin Total 1.1 mg/dL (0.0-1.0); Blood Urea Nitrogen 12 mg/dL (9-16); Calcium 9.8 mg/dL (8.4-10.2); Carbon Dioxide 29 mmol/L (22-29); Chloride 104 mmol/L (96-108); Estimated Glomerular Filt Rate > 60; Glucose Random 90 mg/dL (60-115); Sodium 143 mmol/L (135-145); TSH reflex Free T4 0.22 uIU/mL (0.32-4.0); Total Protein 7.3 g/dL (6.5-8.0)
[2024-05-12 16:03] LABS: Free T4 (Free Thyroxine) 1.19 ng/dL (0.71-1.85)
== END 2024-05-12 10:14 | disposition home or self-care (01) ==
LOC: HO.WFDLDS 10:13
PROVIDERS: Visit Provider Physician Assistant
DX: R42 Dizziness and giddiness (principal); G44.52 New daily persistent headache (NDPH); R53.1 Weakness; R11.0 Nausea; R19.7 Diarrhea, unspecified; D69.6 Thrombocytopenia, unspecified
CPT/HCPCS: 36415; 80053; 81001; 82248; 84439; 84443; 85025

== ENCOUNTER 2024-05-13 09:02 | Outpatient (AMB) | payer OTHER, SELFPAY ==
[2024-05-13 09:04] VITALS: BP 104/76; PULSE 71; O2SAT 92; BMI 34.5
--- NOTE | 2024-05-13 09:04 | MHC.OFFVIS ---
Vital Signs 05/13/24 09:04 Height 5 ft 10 in Weight 240 lb 11.916 oz BMI 34.5 BP 104/76 Blood Pressure Location Lt brachial Position Sitting Pulse 71 Pulse Source Pulse Oximeter Pulse Oximetry (%) 92 Oxygen Delivery Method Room Air Intake Visit Reasons: Thyrotoxicosis, unspecified Intake Note: New patient present today for Thyrotoxicosis, unspecified. Inhalation Therapy Aide Required: No Accompanied by: Self / Same As Patient Allergies amoxicillin Allergy (Intermediate, Verified 05/13/24 09:08) Abdominal Pain bee venom protein (honey bee) Allergy (Intermediate, Verified 05/13/24 09:08) Swelling droperidol [From Inapsine] Allergy (Intermediate, Verified 05/13/24 09:08) lock jaw prochlorperazine [From Compazine] Allergy (Intermediate, Verified 05/13/24 09:08) lock jaw shellfish derived Allergy (Intermediate, Verified 05/13/24 09:08) Hives Medication List - Last Reconciled 05/13/24 by Sana Fernandez MD albuterol sulfate 90 mcg/actuation 1 puff inhalation Q4-6H PRN atorvastatin 20 mg PO DAILY budesonide-formoterol 160-4.5 mcg/actuation (Symbicort) 2 puffs inhalation BID PRN doxycycline hyclate 100 mg PO BID metoprolol succinate ER 50 mg PO DAILY tamsulosin 0.4 mg PO BID HPI Comments Details: 58-year-old male here today for initial evaluation of subclinical hyperthyroidism. Labs from March 2024 03/25/2024 showed TSH low at 0.16, with free T4 of 1.28 normal, labs repeated 04/11/2024 showed TSH improved but still low at 0.20, free T4 1.21, labs repeated 05/12/2024 showed TSH again slightly improved but low at 0.22, with free T4 of 1.19. Thinks he has had it for the past 20 years. Never prescribed any thyroid medication. Patient currently denies heat or cold intolerance, Denies diarrhea or constipation, hair loss, palpitation, anxiety, weight changes, mood changes, changes in appearance of eyes or vision changes, tremors, increased diaphoresis or dry skin. ? Only low energy for the past week due to viral illness. Patient denies any difficulty swallowing, pain on swallowing or voice changes or difficulty breathing. Patient denies any history of childhood neck radiation. Denies having ever used lithium, amiodarone or biotin supplements. Patient denies any family history of thyroid cancer or thyroid disease. is adopted. 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 Physical exam General: sitting comfortably in no acute distress HEENT: normocephalic/atraumatic, no lid lag Neck: supple, palpable 1 cm left-sided nodule Cardiac: normal heart sounds Pulm: normal breath sounds B/L, no added breath sounds Abd: not distended, no tenderness Extremities: no edema, no signs of myxedema, no tremors Laboratory Tests 03/25/24 04/11/24 05/12/24 10:45 09:30 10:15 TSH 0.16 L 0.20 L 0.22 L Free T4 1.28 1.21 1.19 PFSH Medical History Asthma Plantar fasciitis Past heart attack High cholesterol Social History Housing: House Alcohol intake: current Patient Tobacco Use Status: Never used Tobacco e-Cigarette/Vaping Use: Never Used Second Hand Smoke Exposure: No Substance Use Type: Marijuana service: Yes Current occupational status: retired Current occupational exposures/hazards: No Cognitive needs: No Hearing needs: No Vision needs: No Physical Exam Vital Signs: Last Vital Signs Pulse 71 05/13/24 09:04 BP 104/76 05/13/24 09:04 Pulse Ox 92 05/13/24 09:04 Oxygen Delivery Method Room Air 05/13/24 09:04 BMI result Body Mass Index 34.5 Assessment & Plan Assessment & Plan (1) Subclinical hyperthyroidism: Code(s): E05.90 - Thyrotoxicosis, unspecified without thyrotoxic crisis or storm Category: Medical Plan: 58-year-old male with a history of subclinical hyperthyroidism who is coming in today to establish care. Apparently was diagnosed some 20 years ago and has had low TSH levels. Labs from March 2024 03/25/2024 showed TSH low at 0.16, with free T4 of 1.28 normal, labs repeated 04/11/2024 showed TSH improved but still low at 0.20, free T4 1.21, labs repeated 05/12/2024 showed TSH again slightly improved but low at 0.22, with free T4 of 1.19. Given that he is seeing his TSH has been low for many years, likely this is because of thyroiditis. No prior contrast exposure. He has a history of heart disease with an MS, hence could possibly consider treatment in his case. Otherwise he is less than 65 years of age and TSH levels are greater than 0.1, and no history of osteoporosis. At this point I will plan to repeat his labs in about 8 weeks prior to his follow up. We will check antibody levels as well. I will also do an ultrasound of the thyroid is on my exam I feel a 1 cm left-sided nodule. He could possibly have toxic multinodular goiter. Plan: -ultrasound of the thyroid ordered -do TSH, free T4, total T3, TSI, TPO antibodies in 8 weeks prior to follow up -follow up in 8 weeks Plan See above Orders: Orders Thyroid Peroxidase Antibodies 07/04/24 E05.90 - Thyrotoxicosis, unspecified without thyrotoxic crisis or storm Thyroid Stimulating Immunoglob 07/04/24 E05. - Thyrotoxicosis, unspecified without thyrotoxic crisis or storm US thyroid Today E05. - Thyrotoxicosis, unspecified without thyrotoxic crisis or storm Thyroid Stimulating Hormone 07/04/24 E05.90 - Thyrotoxicosis, unspecified without thyrotoxic crisis or storm Free T4 (Free Thyroxine) 07/04/24 E05.90 - Thyrotoxicosis, unspecified without thyrotoxic crisis or storm Triiodothyronine T3 Total 07/04/24 E05. - Thyrotoxicosis, unspecified without thyrotoxic crisis or storm Thyrotropin Receptor Antibody 07/04/24 E05. - Thyrotoxicosis, unspecified without thyrotoxic crisis or storm Coding Level of Care Code New Pt Level 4 (43964) Diagnoses Subclinical hyperthyroidism E0.
== END 2024-05-13 09:48 | disposition home or self-care (01) ==
PROVIDERS: PCP Physician Assistant; Visit Provider Student in an Organized Health Care Education/Training Program
DX: E05.90 Thyrotoxicosis, unspecified without thyrotoxic crisis or storm (principal)
CPT/HCPCS: 99204

== ENCOUNTER → 2024-05-13 09:02 | Outpatient (BNVA) | payer OTHER, SELFPAY | PROVIDERS: PCP Physician Assistant; Visit Provider Student in an Organized Health Care Education/Training Program ==

== ENCOUNTER → 2024-05-28 10:59 | Outpatient (BNV) | payer OTHER, SELFPAY | PROVIDERS: PCP Physician Assistant; Visit Provider Radiology Diagnostic Radiology | DX: R42 Dizziness and giddiness (principal) | CPT/HCPCS: 70551 ==

== ENCOUNTER 2024-05-28 11:00 | Outpatient (REF) | payer OTHER, SELFPAY ==
--- NOTE | ~2024-05-28 | MR_ITS ---
EXAMINATION: MR BRAIN WITHOUT IV CONTRAST HISTORY: R42 - Dizziness and giddiness TECHNIQUE: Sagittal T1, and axial T1, FLAIR, T2, gradient echo, and diffusion weighted MR images of the brain were obtained. COMPARISON: None FINDINGS: There is mild prominence of the ventricular system and cortical sulci, consistent with atrophy. Periventricular and subcortical white matter hyperintensities are noted on the FLAIR and T2-weighted images which are nonspecific, but often seen in the setting of small vessel ischemic disease. There is no mass effect or midline shift. No intra or extra-axial fluid collections are identified. There are no foci of restricted diffusion. Normal vascular flow voids are noted in the basilar and carotid arteries. The visualized paranasal sinuses are clear. MR/MR head/brain wo con IMPRESSION: No acute intracranial abnormality. Electronically signed by: Uri Robertson MD 05/30/2024 07:13 AM EDT
== END 2024-05-28 11:01 | disposition home or self-care (01) ==
LOC: HO.MRI 11:00
PROVIDERS: PCP Physician Assistant; Visit Provider Physician Assistant
DX: G44.52 New daily persistent headache (NDPH) (principal); R53.1 Weakness; R42 Dizziness and giddiness
CPT/HCPCS: 70551

== ENCOUNTER 2024-06-07 14:04 | Outpatient (AMB) | payer OTHER, SELFPAY ==
--- NOTE | 2024-06-07 14:10 | HO.NEPHOV ---
Vital Signs 06/07/24 14:14 Height 5 ft 10 in Weight 248 lb 8 oz BMI 35.7 BP 120/72 Blood Pressure Location Lt brachial Position Sitting Pulse 63 Pulse Source Pulse Oximeter Pulse Oximetry (%) 93 Oxygen Delivery Method Room Air Intake Visit Reasons: INP: Proteinuria-Conf Reliability Technician Required: No Accompanied by: Self / Same As Patient Allergies amoxicillin Allergy (Intermediate, Verified 05/13/24 09:08) Abdominal Pain bee venom protein (honey bee) Allergy (Intermediate, Verified 05/13/24 09:08) Swelling droperidol [From Inapsine] Allergy (Intermediate, Verified 05/13/24 09:08) lock jaw prochlorperazine [From Compazine] Allergy (Intermediate, Verified 05/13/24 09:08) lock jaw shellfish derived Allergy (Intermediate, Verified 05/13/24 09:08) Hives HPI Comments Details: I had the privilege of seeing Matthew in consultation for proteinuria. 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 He has no DM, CVA, CHF or PAD. He has BPH and is on tamsulosin. He has high BMI. He is not on ACEI or ARB. He denies hematuria, edema, sensori neural deafness, epistaxis, photosensitivity, skin rashes, new bone or back pain. His renal function has been normal. He denies taking excess NSAID's. [facility] Medical History (Updated 06/07/24 @ 14:36 by Fernando Almeida MD) Subclinical hyperthyroidism Asthma Plantar fasciitis Past heart attack High cholesterol Social History Housing: House Alcohol intake: current Patient Tobacco Use Status: Never used Tobacco e-Cigarette/Vaping Use: Never Used Second Hand Smoke Exposure: No Substance Use Type: Marijuana service: Yes Current occupational status: retired Current occupational exposures/hazards: No Cognitive needs: No Hearing needs: No Vision needs: No Review of Systems Const All systems reviewed & are unremarkable except as noted in HPI and below Physical Exam Vital Signs: Last Vital Signs Pulse 63 06/07/24 14:14 BP 120/72 06/07/24 14:14 Pulse Ox 93 06/07/24 14:14 Oxygen Delivery Method Room Air 06/07/24 14:14 BMI result Body Mass Index 35.7 Const General: comfortable and no acute distress Orientation/consciousness: patient oriented x3 HEENT Head: Yes normocephalic Mouth: Normal oral and palatal mucosa present Eyes EOM: EOMs intact bilaterally Neck Neck: Yes supple Resp Auscultation: clear to auscultation bilaterally Cardio Jugular venous distension: no JVD Rate: regular rate GI Palpation (GI): Soft to palpation Auscultation: normal bowel sounds General: Yes no CVA tenderness Back/Spine/Pelvis Back: no CVA tenderness Skin General skin exam: no rashes or lesions noted Neuro General: patient oriented x3 and moves all extremities Extrem General: Yes no pedal edema Results Reviewed Nephrology Results: Hgb 15.5 g/dl (14.0-18.0) 05/12/24 WBC 7.6 X10*3/uL (4.8-10.8) 05/12/24 Plt Count 153 X10*3/uL (160-400) L 05/12/24 Sodium 143 mmol/L (135-145) 05/12/24 Potassium 4.0 mmol/L (3.3-5.1) 05/12/24 Chloride 104 mmol/L (96-108) 05/12/24 Carbon Dioxide 29 mmol/L (22-29) 05/12/24 BUN 12 mg/dL (9-16) 05/12/24 Creatinine 0.74 mg/dL (0.5-1.4) 05/12/24 Calcium 9.8 mg/dL (8.4-10.2) 05/12/24 Urine Protein 100 (2+) mg/dL (Neg-Trace) H 05/12/24 Assessment & Plan Assessment & Plan (1) Proteinuria: Code(s): R80.9 - Proteinuria, unspecified Category: Medical Qualifiers: Proteinuria type: other Qualified Code(s): R80.8 - Other proteinuria Plan Matthew has a new diagnosis of proteinuria Differential diagnosis is broad including secondary FSGS Not on ACEI/ARB; Needs to F/U his ECHO Ordered 24 hour urine for protein ordered Renal function normal; BP @ goal on metoprolol If he has significant proteinuria, shall investigate further (will consider renal biopsy if needed based on evolving data) No H/O malignancy/ autoimmune disease/excess NSAID use No H/O HIV or hepatitis. Further management is pending data All questions answered. F/U given Orders: Orders Protein, 24 Hr Urine Group Today R80.9 - Proteinuria, unspecified Coding Level of Care Code New Pt Level 4 (86875) Diagnoses Other proteinuria R80.8 Proteinuria type: other
[2024-06-07 14:14] VITALS: BP 120/72; PULSE 63; O2SAT 93; BMI 35.7
== END 2024-06-07 14:40 | disposition home or self-care (01) ==
LOC: HO.HKAS 14:05
PROVIDERS: PCP Physician Assistant; Referring Provider Physician Assistant; Visit Provider Internal Medicine Nephrology
DX: R80.8 Other proteinuria (principal)
CPT/HCPCS: 99204

== ENCOUNTER 2024-06-09 09:26 | Outpatient (AMB) | payer OTHER, SELFPAY ==
--- NOTE | 2024-06-09 09:39 | MHC.PC.OV ---
Vital Signs 06/09/24 09:45 Height 5 ft 10 in Weight 247 lb 8 oz BMI 35.5 BP 126/72 Blood Pressure Location Rt brachial Position Sitting Respiration 16 Pulse 65 Pulse Source Pulse Oximeter Pulse Oximetry (%) 94 Oxygen Delivery Method Room Air Intake Visit Reasons: f/u symptoms and imaging Intake Note: Follow up brain MRI results. 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 Allergies amoxicillin Allergy (Intermediate, Verified 06/09/24 09:39) Abdominal Pain bee venom protein (honey bee) Allergy (Intermediate, Verified 06/09/24 09:39) Swelling droperidol [From Inapsine] Allergy (Intermediate, Verified 06/09/24 09:39) lock jaw prochlorperazine [From Compazine] Allergy (Intermediate, Verified 06/09/24 09:39) lock jaw shellfish derived Allergy (Intermediate, Verified 06/09/24 09:39) Hives Tobacco use date assessed: 06/09/24 Dental Screening Dental Screen Date: 03/23/24 HPI f/u symptoms and imaging HPI Details Patient is a 58-year-old male with a significant past medical history of hypertension, hyperlipidemia, diastolic dysfunction, hypothyroidism, varicose veins presenting today for a follow up. He was seen recently complained of headaches and dizziness. He did have an MRI which was overall reassuring. He states that these symptoms have actually improved/resolved. He does still sometimes get headaches. He thinks he sleeps through the night without difficulty but does sometimes snore. He has never had a sleep study. CV: Blood pressure today in the office is 126/72. He is currently on metoprolol 50 mg daily, aspirin and atorvastatin [address] Rust for his heart failure and states he just saw him. No recent echo. No cp, sob. Has follow up next March 2025. GI: Some of the abdominal pain is improved but he still has this chronic ongoing discomfort with a CT scan booked in July. He states that he was unable to get this done sooner. He had issues with insurance and then taking time for this. He has not yet returned the Cologuard. [facility] Medical History (Updated 06/09/24 @ 10:34 by Jodie Husain PA-C) Subclinical hyperthyroidism Asthma Plantar fasciitis Past heart attack High cholesterol Social History (Updated 06/09/24 @ 09:47 by ADARSH Delatorre Housing: House Alcohol intake: current Patient Tobacco Use Status: Former Tobacco user Cigarette Packs Per Day: 2.5 Years Smoked: 12 e-Cigarette/Vaping Use: Never Used Second Hand Smoke Exposure: No Substance Use Type: Marijuana service: Yes Current occupational status: retired Current occupational exposures/hazards: No Cognitive needs: No Hearing needs: No Vision needs: No Questionnaire Thrive Questionnaire Date Thrive assessed: 03/23/24 I am a: Patient What is your living situation today?: I have a steady place to live Within the past 12 months, did the food you bought not last and you didn't have the money to get more?: Never true Within the past 12 months, did you worry whether your food would run out before you got money to buy more?: Never true Do you have trouble paying for medicines?: I choose not to answer this question Do you have trouble getting transportation to medical appointments?: No Do you have trouble paying your heating and electricity bill?: No Do you have trouble taking care of your child, family member or friend?: No Do you have trouble with day-to-day activities such as bathing, preparing meals, shopping, managing finances, etc.?: No Are you currently unemployed and looking for a job?: No Are you interested in more education?: No Please select the resources that you would like help with: None Currently or been in a relationship where the following occur: No concerns reported THRIVE Score: 0 Physical exam (Primary Care) Vital Signs: Last Vital Signs Pulse 65 06/09/24 09:45 Resp 16 06/09/24 09:45 BP 126/72 06/09/24 09:45 Pulse Ox 94 06/09/24 09:45 Oxygen Delivery Method Room Air 06/09/24 09:45 BMI result Body Mass Index 35.5 Tobacco/Smoking Status: Tobacco use Status Tobacco use date assessed 06/09/24 06/09/24 09:48 Patient Tobacco Use Status Former Tobacco user 06/09/24 09:48 e-Cigarette/Vaping Use Never Used 06/09/24 09:47 Thrive Assessment: Date of Thrive Assessment Date Thrive assessed 03/23/24 06/09/24 09:40 Currently or been in a relationship where the following occur: No concerns reported Const Orientation/consciousness: patient oriented x3 HENMT Ears: hearing grossly normal bilaterally Neck Thyroid: Thyroid normal Lymphatic: no lymphadenopathy noted Resp Auscultation: clear to auscultation bilaterally Cardio Rate: regular rate Rhythm: regular rhythm Heart sounds: S1 normal heart sound present and S2 normal heart sound present GI Inspection: Yes normal to inspection Palpation (GI): Soft to palpation and Other GI palpation findings present (nontender, no cva tenderness) Auscultation: normoactive bowel sounds Rectal Exam - Male: Yes deferred Skin General skin exam: no rashes or lesions noted Neuro General: patient oriented x3, gait normal and no focal motor deficits Coding Level of Care Code Est Pt Level 4 (79221) Complex EM visit Add On G2211 Diagnoses Hyperlipidemia E78.5 Diastolic dysfunction I51.89 HTN (hypertension) I10 Assessment & Plan Assessment & Plan (1) Hyperlipidemia: Code(s): E78.5 - Hyperlipidemia, unspecified Category: Medical Plan: Continue current regimen. We will monitor (2) Diastolic dysfunction: Code(s): I51.89 - Other ill-defined heart diseases Category: Medical Plan: Echo ordered (3) HTN (hypertension): Code(s): I10 - Essential (primary) hypertension Category: Medical Plan: WNL. Continue current regimen Plan Sleep study ordered Orders: Orders RT home sleep study Today G44.52 - New daily persistent headache (NDPH), R06.81 - Apnea, not elsewhere classified CA echo transthoracic complete Today E78.5 - Hyperlipidemia, unspecified, I10 - Essential (primary) hypertension, I51.89 - Other ill-defined heart diseases
[2024-06-09 09:45] VITALS: BP 126/72; PULSE 65; RESP 16; O2SAT 94; BMI 35.5
== END 2024-06-09 10:38 | disposition home or self-care (01) ==
LOC: HO.HMCFM 09:27
PROVIDERS: PCP Physician Assistant; Visit Provider Physician Assistant
DX: E78.5 Hyperlipidemia, unspecified (principal); I51.89 Other ill-defined heart diseases; I10 Essential (primary) hypertension

== ENCOUNTER → 2024-06-09 09:26 | Outpatient (BNVA) | payer OTHER, SELFPAY | PROVIDERS: PCP Physician Assistant; Visit Provider Physician Assistant ==

== ENCOUNTER 2024-06-15 10:36 | Outpatient (REF) | payer OTHER, SELFPAY ==
[2024-06-15 18:54] LABS: Creatinine, mg/dL 51.78; Protein mg/dL 12 mg/dL
[2024-06-15 19:41] LABS: Protein 24 Hr Urine 234 mg/Day (<150); Total Volume 24 Hour Urine 1950 mL
== END 2024-06-15 10:37 | disposition home or self-care (01) ==
LOC: HO.HKASLDS 10:36
PROVIDERS: Visit Provider Internal Medicine Nephrology
DX: R80.9 Proteinuria, unspecified (principal)
CPT/HCPCS: 84156

== ENCOUNTER 2024-06-15 13:00 | Outpatient (REF) | payer OTHER, SELFPAY ==
--- NOTE | ~2024-06-15 | US_ITS ---
EXAMINATION: US THYROID HISTORY: E05.90 - Thyrotoxicosis, unspecified without thyrotoxic crisis or storm TECHNIQUE: Real-time grayscale ultrasound imaging was performed and images were reviewed. COMPARISON: There are no prior studies for comparison. FINDINGS: SIZE: The right thyroid lobe measures 5.2 x 2.7 x 2.3 cm. The left thyroid lobe measures 5.9 x 2.7 x 2.3 cm. The isthmus measures 7 mm. FLOW: Flow to the gland is normal. ECHOGENICITY: The echotexture of the gland is heterogeneous. NODULES: Multiple bilateral thyroid nodules are identified as described below: Nodule #: 1 Location: Isthmus measuring 4 x 4 x 7 mm Shape: Wider than tall (0 points) Margins: Smooth (0 points) Echotexture: Hypoechoic (2 points) Composition: Solid (2 points) Calcifications: None (0 points) Total points: 4 TIRADS: TR4: Moderately suspicious. Nodule #: 2 Location: Upper pole of the right thyroid lobe measuring 6 x 4 x 4 mm Shape: Wider than tall (0 points) Margins: Smooth (0 points) Echotexture: Very hypoechoic (3 points) Composition: Mixed (1 point) Calcifications: None (0 points) Total points: 4 TIRADS: TR4: Moderately suspicious. Nodule #: 3 Location: Midportion of the left thyroid lobe measuring 9 x 8 x 9 mm Shape: Round (0 points) Margins: Smooth (0 points) Echotexture: Very hypoechoic (3 points) Composition: Mixed (1 point) Calcifications: Macrocalcifications (1 point) Total points: 5 TIRADS: TR4: Moderately suspicious. Nodule #: 4 Location: Midportion of the left thyroid lobe measuring 6 x 7 x 5 mm Shape: Taller than wide (3 points) Margins: Smooth (0 points) Echotexture: Very hypoechoic (3 points) Composition: Mixed (1 point) Calcifications: None (0 points) Total points: 7 TIRADS: TR5: Highly suspicious. Nodule #: 5 Location: Lower pole of the left thyroid lobe measuring 2.2 x 1.4 x 2.0 cm. Shape: Wider than tall (0 points) Margins: Smooth (0 points) Echotexture: Hypoechoic (2 points) Composition: Mostly solid (2 points) Calcifications: Punctate calcifications (3 points) Total points: 7 TIRADS: TR5: Highly suspicious. US/US thyroid IMPRESSION: Multiple bilateral thyroid nodules as described. Ultrasound-guided fine-needle aspiration of the most suspicious nodules at the mid and lower pole of the left thyroid lobe (nodules #4 and 5) is recommended. ACR TI-RADS Guidelines TR1 (0 points): Benign, No follow-up or biopsy required TR2 (2 points): Not Suspicious, No biopsy or follow up indicated TR3 (3 points): Mildly Suspicious, FNA if >= 2.5 cm, Follow if >= 1.5 cm TR4 (4-6 points): Moderately Suspicious, FNA if >= 1.5 cm, Follow if >= 1.0 cm TR5 (>=7 points): Highly Suspicious, FNA if >= 1.0 cm, Follow if >= 0.5 cm Electronically signed by: Uri Robertson MD 06/16/2024 07:17 AM EDT
== END 2024-06-15 13:01 | disposition home or self-care (01) ==
LOC: HO.HMGCX 13:00
PROVIDERS: PCP Physician Assistant; Visit Provider Student in an Organized Health Care Education/Training Program
DX: E05.90 Thyrotoxicosis, unspecified without thyrotoxic crisis or storm (principal)
CPT/HCPCS: 76536

== ENCOUNTER → 2024-06-15 13:03 | Outpatient (BNV) | payer OTHER, SELFPAY | PROVIDERS: PCP Physician Assistant; Visit Provider Radiology Diagnostic Radiology | DX: E04.2 Nontoxic multinodular goiter (principal) | CPT/HCPCS: 76536 ==

== ENCOUNTER 2024-06-29 09:00 | Outpatient (RCR) | payer OTHER, SELFPAY ==
--- NOTE | 2024-06-02 13:55 | MHC.PT.EP ---
[facility] [place] Office [place] Office [place] Office [address] [phone] F: [phone] F: [phone] F: [phone] F: [phone] Physical Therapy Plan of Care Date of Evaluation: 06/02/24 Date of Surgery: Diagnosis: OA of R knee Assessment: Patient is a 58 year old R handed male who presents with s/s consistent with R knee OA, R knee pain. 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 Patient past medical history includes asthma, NH at 29 years old. Current impairments include pain, balance, ROM, strength, activity tolerance and functional mobility. Functional limitations include decreased ability to walk, stand, negotiate stairs and get moving in the morning. Patient is motivated with good rehab potential. Skilled PT will address impairments and functional limitations in order to achieve goals. Frequency and Duration: The patient will be seen 2x/week for 5 weeks Short Term Goals: I with HEP -2 weeks AROM symmetrical flexion - 3 weeks min gastroc tightness R LE - 3 weeks Chcf Goals: Strength 4+ in R knee and hip - 5 weeks LEFS 62/80 - 5 weeks SLB > 20 seconds on R knee - 5 weeks Pain free stairs - 5 weeks Treatment Plan: Modalities to reduce pain, spasms and effusion. Manual therapy to restore motion and function. Therapeutic exercise to improve strength and flexibility. Neuromuscular re-education for posture and balance. Therapeutic activities to return to functional activities of daily living. Electronically signed by: Vadim Starkey PT Please sign and return to therapist. Thank you for your referral.
--- NOTE | 2024-10-04 12:56 | MHC.PT.DC ---
[facility] [place] Office [place] Office [place] Office [address] Gilberto Mann [address] [phone] F: [phone] F: [phone] F: [phone] F: [phone] Physical Therapy Discharge Report Diagnosis: OA of R knee Date of Surgery: Date of Evaluation: 06/02/24 Date of Discharge: 08/05/24 Treatments to Date: 7 Cancellations to Date: No Shows to Date: Discharge Status: Improved Function Independent with HEP Discharge Summary: 06/29/24: I with HEP. LEFS 50/80. AROM symmetrical. gastroc tightness min, strength 4+/5 grossly. SLB > 20 seconds. Patient has progressed towards or met goals and it I with HEP. we will d/c to HEP at this time. 06/27/24: pt continues to progress well. improved stair mechanics and pain free today. added TRX, no adverse reactions. 06/22/24: mild increase in swelling today so we held progression. CP to finish. continue to progress as tolerated. 06/20/24: pt progressing well with skilled PT. no adverse reactions from above program. continuing to progress strength and CKC as tolerated. 06/16/24: pt progressing well overall with less pain with daily activities. continue to progress with strength, ROM and function. 06/13/24: still experiencing medial knee joint line pain to manageable. we will continue to manage this as we progress. 06/10/24: pt progressing well with skilled PT. no adverse reactions. less pain today, held on step up and over as well but progressed with shuttle, wobble board. continue to progress as tolerated. AROM ext/flex WNL. 06/06/24: pt progressed with standing activities. some pain with up and over on 6 so we went to 4 . assess response and progress as tolerated. Patient is a 58 year old R handed male who presents with s/s consistent with R knee OA, R knee pain. He is retired from [employer]. Patient past medical history includes asthma, HI at 29 years old. Current impairments include pain, balance, ROM, strength, activity tolerance and functional mobility. Functional limitations include decreased ability to walk, stand, negotiate stairs and get moving in the morning. Patient is motivated with good rehab potential. Skilled PT will address impairments and functional limitations in order to achieve goals. Electronically signed by: Vadim Starkey, PT Please sign and return to therapist. Thank you for your referral.
== END 2024-10-04 12:57 | disposition home or self-care (01) ==
LOC: HO.PTCHIC 09:00
PROVIDERS: PCP Physician Assistant; Visit Provider Physician Assistant
DX: M17.11 Unilateral primary osteoarthritis, right knee (principal)
CPT/HCPCS: 97110; 97162

== ENCOUNTER 2024-07-01 10:28 | Outpatient (AMB) | payer OTHER, SELFPAY ==
--- NOTE | 2024-07-01 11:40 | A.OFFVIS_ITS ---
Vital Signs 07/01/24 11:41 Height 5 ft 10 in Weight 247 lb BMI 35.4 Intake Visit Reasons: Right SSV RFA Allergies amoxicillin Allergy (Intermediate, Verified 06/09/24 09:39) Abdominal Pain bee venom protein (honey bee) Allergy (Intermediate, Verified 06/09/24 09:39) Swelling droperidol [From Inapsine] Allergy (Intermediate, Verified 06/09/24 09:39) lock jaw prochlorperazine [From Compazine] Allergy (Intermediate, Verified 06/09/24 09:39) lock jaw shellfish derived Allergy (Intermediate, Verified 06/09/24 09:39) Hives [facility] Medical History (Updated 07/01/24 @ 12:22 by Surinder White MD) Subclinical hyperthyroidism Asthma Plantar fasciitis Past heart attack High cholesterol Social History (Updated 06/09/24 @ 09:47 by Eliana Khan CMA) Housing: House Alcohol intake: current Patient Tobacco Use Status: Former Tobacco user Cigarette Packs Per Day: 2.5 Years Smoked: 12 e-Cigarette/Vaping Use: Never Used Second Hand Smoke Exposure: No Substance Use Type: Marijuana service: Yes Current occupational status: retired Current occupational exposures/hazards: No Cognitive needs: No Hearing needs: No Vision needs: No Physical Exam Vital Signs: BMI result Body Mass Index 35.4 Office Procedures Vascular Office Procedure Details Details: Diagnosis: Varicose veins with inflammation of right leg Procedure: Endovenous radiofrequency ablation of the right small saphenous vein(s) of the lower extremity. Anesthesia: Local infiltration 5 cc, Tumescent 150 cc. Surgeon: Dr. White Bat Lathe Operator: None Estimated Blood Loss: minimal Specimen: Varicose veins The patient was transferred to the procedure suite and the insufficient saphenous vein was mapped by ultrasound and diagrammed on the overlying skin. The depth and diameter of the vein(s) to be treated was documented. The varicose tributary veins and suitable access sites were identified and mapped as well. The patient was then positioned prone on the procedure table. The affected limb was prepped and draped in the usual sterile fashion. The RF catheter was placed on the sterile field, flushed and wiped down, prepared, and connected by a sterile cable. The patient was placed in prone position and local anesthesia was instilled in the skin overlying the access site. A skin incision was made overlying the identified and mapped small saphenous vein entry site. The vein was accessed using ultrasound guidance and the Seldinger technique, a guide wire was introduced through the needle, which was then exchanged over the guide wire for a 6F sheath, which was secured in place. The guide wire was removed and the sheath was flushed. The RF catheter was placed into the vein through the sheath and preferentially, imaging was used to place the catheter tip just inferior to the dive down of the saphenous popliteal junction. Additionally, it was co nfirmed by ultrasound guidance that the catheter tip was also placed a minimum of 1.5cm distal to the sapheno popliteal junction. After the RF catheter position was verified by ultrasound, tumescent anesthesia was infiltrated, under ultrasound guidance, precisely into the perivenous compartment along the entire length of vein from the entry site to the saphenofemoral junction until a halo of fluid was noted around the vein. The patient was then placed in prone position to further exsanguinate the superficial venous system. After RF catheter position was again confirmed with ultrasound imaging, and under direct external compression along the length of the heating element, RF energy was applied. The vein was segmentally ablated by heating a 8 cm segment and then indexing the catheter forward by 7.5 cm until the treatment length is completed. Device temperature was maintained at 120 plus or minus 5 degrees C with an initial power level of 40W dropping to below 20W for each treatment. Total vein length treated 16 cm Total cycles of RF 3. Repeat ultrasound of the saphenous vein was performed, confirming successful treatment. The catheter and sheath were withdrawn and hemostasis established with direct pressure. After assuring hemostasis, the skin incision over the saphenous vein was closed with a bandage and a compression wrap, and/ or graduated compression stocking was applied from the level of the foot to the most proximal level of the thigh. 97643 - Endovenous RF, 1st Vein All charges added?: Procedure code (CPT) selection complete Assessment & Plan Assessment & Plan (1) Varicose veins of right lower extremity with inflammation: Comment: 07/01/2024 - right small saphenous vein radiofrequency ablation Code(s): I83.11 - Varicose veins of right lower extremity with inflammation Category: Medical Plan: See op note Coding Level of Care Code Procedure Only Diagnoses Varicose veins of right lower extremity with inflammation I83.11 CPT Codes Details - Vascular 1: 81850 - Endovenous RF, 1st Vein ([id number])
[2024-07-01 11:41] VITALS: BMI 35.4
== END 2024-07-01 11:45 | disposition home or self-care (01) ==
LOC: HO.HVS 10:29
PROVIDERS: PCP Physician Assistant; Visit Provider Surgery Vascular Surgery
DX: I83.11 Varicose veins of right lower extremity with inflammation (principal)
CPT/HCPCS: 36475

== ENCOUNTER → 2024-07-01 10:28 | Outpatient (BNVA) | payer OTHER, SELFPAY | PROVIDERS: PCP Physician Assistant; Visit Provider Surgery Vascular Surgery | DX: I83.11 Varicose veins of right lower extremity with inflammation (principal) | CPT/HCPCS: 36475; J2003; J2004 ==

== ENCOUNTER 2024-07-05 09:37 | Outpatient (AMB) | payer OTHER, SELFPAY ==
[2024-07-05 09:42] VITALS: BP 122/72; PULSE 74; O2SAT 96; BMI 35.1
--- NOTE | 2024-07-05 09:42 | HO.NEPHOV_ITS ---
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 He has no DM, CVA, CHF or PAD. He has BPH and is on tamsulosin. He has high BMI. He is not on ACEI or ARB. He denies hematuria, edema, sensori neural deafness, epistaxis, photosensitivity, skin rashes, new bone or back pain. His renal function has been normal. He denies taking excess NSAID's. [facility] Medical History (Updated 07/05/24 @ 09:55 by Fernando Almeida MD) Subclinical hyperthyroidism Asthma Plantar fasciitis Past heart attack High cholesterol Social History Housing: House Alcohol intake: current Patient Tobacco Use Status: Former Tobacco user Cigarette Packs Per Day: 2.5 Years Smoked: 12 e-Cigarette/Vaping Use: Never Used Second Hand Smoke Exposure: No Substance Use Type: Marijuana service: Yes Current occupational status: retired Current occupational exposures/hazards: No Cognitive needs: No Hearing needs: No Vision needs: No Review of Systems Const All systems reviewed & are unremarkable except as noted in HPI and below Physical Exam Vital Signs: Last Vital Signs Pulse 74 07/05/24 09:42 BP 122/72 07/05/24 09:42 Pulse Ox 96 07/05/24 09:42 Oxygen Delivery Method Room Air 07/05/24 09:42 BMI result Body Mass Index 35.1 Const General: comfortable and no acute distress Orientation/consciousness: patient oriented x3 HEENT Head: Yes normocephalic Mouth: Normal oral and palatal mucosa present Eyes EOM: EOMs intact bilaterally Neck Neck: Yes supple Resp Auscultation: clear to auscultation bilaterally Cardio Jugular venous distension: no JVD Rate: regular rate GI Palpation (GI): Soft to palpation Auscultation: normal bowel sounds General: Yes no CVA tenderness Back/Spine/Pelvis Back: no CVA tenderness Skin General skin exam: no rashes or lesions noted Neuro General: patient oriented x3 and moves all extremities Extrem General: Yes no pedal edema Results Reviewed Nephrology Results: No Data to Display Assessment & Plan Assessment & Plan (1) HTN (hypertension): Code(s): I10 - Essential (primary) hypertension Category: Medical Qualifiers: Hypertension type: primary hypertension Qualified Code(s): I10 - Essential (primary) hypertension (2) Proteinuria: Code(s): R80.9 - Proteinuria, unspecified Category: Medical Qualifiers: Proteinuria type: other Qualified Code(s): R80.8 - Other proteinuria Plan Matthew has a new diagnosis of proteinuria( likely from hypertension) Differential diagnosis is broad including secondary FSGS Not on ACEI/ARB; His last ECHO was reviewed 24 hour urine for protein - 234 mg Renal function normal; BP @ goal on metoprolol If he has worsening proteinuria, shall investigate further (will consider renal biopsy if needed based on evolving data) No H/O malignancy/ autoimmune disease/excess NSAID use No H/O HIV or hepatitis. Started 2.5 mg at night All questions answered. F/U given Orders: Orders Blood Urea Nitrogen 3 Months I10 - Essential (primary) hypertension, R80.8 - Other proteinuria Protein Creatinine Ratio, Ur 3 Months I10 - Essential (primary) hypertension, R80.8 - Other proteinuria Creatinine 3 Months I10 - Essential (primary) hypertension, R80.8 - Other proteinuria Electrolytes 3 Months I10 - Essential (primary) hypertension, R80.8 - Other proteinuria Medications: New lisinopril 2.5 mg PO DAILY 90 tabs 3RF Coding Level of Care Code Est Pt Level 4 (28718) Diagnoses Primary hypertension I10 Hypertension type: primary hypertension Other proteinuria R80.8 Proteinuria type: other
== END 2024-07-05 10:04 | disposition home or self-care (01) ==
LOC: HO.HKAS 09:37
PROVIDERS: PCP Physician Assistant; Visit Provider Internal Medicine Nephrology
DX: I10 Essential (primary) hypertension (principal); R80.8 Other proteinuria
CPT/HCPCS: 99214

== ENCOUNTER → 2024-07-05 09:37 | Outpatient (BNVA) | payer OTHER, SELFPAY | PROVIDERS: PCP Physician Assistant; Visit Provider Internal Medicine Nephrology ==

== ENCOUNTER 2024-07-08 09:54 | Outpatient (AMB) | payer OTHER, SELFPAY ==
[2024-07-08 09:57] VITALS: BP 120/74; PULSE 60; O2SAT 93; BMI 35.9
--- NOTE | 2024-07-08 09:57 | A.OFFVIS_ITS ---
Vital Signs 07/08/24 09:57 Height 5 ft 10 in Weight 250 lb 0.067 oz BMI 35.9 BP 120/74 Blood Pressure Location Lt brachial Position Sitting Pulse 60 Pulse Source Pulse Oximeter Pulse Oximetry (%) 93 Oxygen Delivery Method Room Air Intake Visit Reasons: Subclinical hyperthyroidism Intake Note: Patient present today for Subclinical hyperthyroidism office visit. Psychologist Private Practice Required: No Accompanied by: Self / Same As Patient Allergies amoxicillin Allergy (Intermediate, Verified 07/08/24 10:01) Abdominal Pain bee venom protein (honey bee) Allergy (Intermediate, Verified 07/08/24 10:01) Swelling droperidol [From Inapsine] Allergy (Intermediate, Verified 07/08/24 10:01) lock jaw prochlorperazine [From Compazine] Allergy (Intermediate, Verified 07/08/24 10:01) lock jaw shellfish derived Allergy (Intermediate, Verified 07/08/24 10:01) Hives Medication List - Last Reconciled 07/08/24 by Sana Fernandez MD albuterol sulfate 90 mcg/actuation 1 puff inhalation Q4-6H PRN aspirin 81 mg PO DAILY atorvastatin 20 mg PO DAILY budesonide-formoterol 160-4.5 mcg/actuation (Symbicort) 2 puffs inhalation BID PRN lisinopril 2.5 mg PO DAILY metoprolol succinate ER 50 mg PO DAILY tamsulosin 0.4 mg PO BID HPI Comments Details: 58-year-old male here today for follow up of subclinical hyperthyroidism. HPI Labs from March 2024 03/25/2024 showed TSH low at 0.16, with free T4 of 1.28 normal, labs repeated 04/11/2024 showed TSH improved but still low at 0.20, free T4 1.21, labs repeated 05/12/2024 showed TSH again slightly improved but low at 0.22, with free T4 of 1.19. Thinks he has had it for the past 20 years. Never prescribed any thyroid medication. Patient currently denies heat or cold intolerance, Denies diarrhea or constipation, hair loss, palpitation, anxiety, weight changes, mood changes, c hanges in appearance of eyes or vision changes, tremors, increased diaphoresis or dry skin. ? Only low energy for the past week due to viral illness. Patient denies any difficulty swallowing, pain on swallowing or voice changes or difficulty breathing. Patient denies any history of childhood neck radiation. Denies having ever used lithium, amiodarone or biotin supplements. Patient denies any family history of thyroid cancer or thyroid disease. is adopted. 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 Interval history Ultrasound of the thyroid 06/15/2024, I reviewed the images myself which showed a subcentimeter solid, hypoechoic isthmus nodule, a right midpole subcentimeter cyst, another right midpole solid, hypoechoic TR 4 category nodule that is subcentimeter in size, a right superior pole mixed cystic solid subcentimeter nodule measuring 0.6 cm in the largest dimension which has some colloid in it, I left midpole subcentimeter mixed cystic solid nodule with a solid component that has some calcifications in a, however this is a well-defined nodule which is still subcentimeter size, I would categorize this is a TR 4 nodule, and 0.7 cm subcentimeter left midpole solid, hypoechoic, taller than wide, irregular margin nodule TR 5 category nodule (high suspicion), with the largest dominant left lower pole 2.2 cm nodule which is mixed cystic solid, hypoechoic/isoechoic, with a apparently questionable punctate echogenic foci, however I do not see this on landing just myself. I would categorize this has a TR 3 nodule instead of a TR 5. He forgot to do repeat labs Physical exam General: sitting comfortably in no acute distress HEENT: normocephalic/atraumatic, no lid lag Neck: supple, palpable 1 cm left-sided nodule Cardiac: normal heart sounds Pulm: normal breath sounds B/L, no added breath sounds Abd: not distended, no tenderness Extremities: no edema, no signs of myxedema, no tremors Laboratory Tests 03/25/24 04/11/24 05/12/24 10:45 09:30 10:15 TSH 0.16 L 0.20 L 0.22 L Free T4 1.28 1.21 1.19 EXAMINATION: US THYROID 06/15/24 HISTORY: E05.90 - Thyrotoxicosis, unspecified without thyrotoxic crisis or storm TECHNIQUE: Real-time grayscale ultrasound imaging was performed and images were reviewed. COMPARISON: There are no prior studies for comparison. FINDINGS: SIZE: The right thyroid lobe measures 5.2 x 2.7 x 2.3 cm. The left thyroid lobe measures 5.9 x 2.7 x 2.3 cm. The isthmus measures 7 mm. FLOW: Flow to the gland is normal. ECHOGENICITY: The echotexture of the gland is heterogeneous. NODULES: Multiple bilateral thyroid nodules are identified as described below: Nodule #: 1 Location: Isthmus measuring 4 x 4 x 7 mm Shape: Wider than tall (0 points) Margins: Smooth (0 points) Echotexture: Hypoechoic (2 points) Composition: Solid (2 points) Calcifications: None (0 points) Total points: 4 TIRADS: TR4: Moderately suspicious. Nodule #: 2 Location: Upper pole of the right thyroid lobe measuring 6 x 4 x 4 mm Shape: Wider than tall (0 points) Margins: Smooth (0 points) Echotexture: Very hypoechoic (3 points) Composition: Mixed (1 point) Calcifications: None (0 points) Total points: 4 TIRADS: TR4: Moderately suspicious. Nodule #: 3 Location: Midportion of the left thyroid lobe measuring 9 x 8 x 9 mm Shape: Round (0 points) Margins: Smooth (0 points) Echotexture: Very hypoechoic (3 points) Composition: Mixed (1 point) Calcifications: Macrocalcifications (1 point) Total points: 5 TIRADS: TR4: Moderately suspicious. Nodule #: 4 Location: Midportion of the left thyroid lobe measuring 6 x 7 x 5 mm Shape: Taller than wide (3 points) Margins: Smooth (0 points) Echotexture: Very hypoechoic (3 points) Composition: Mixed (1 point) Calcifications: None (0 points) Total points: 7 TIRADS: TR5: Highly suspicious. Nodule #: 5 Location: Lower pole of the left thyroid lobe measuring 2.2 x 1.4 x 2.0 cm. Shape: Wider than tall (0 points) Margins: Smooth (0 points) Echotexture: Hypoechoic (2 points) Composition: Mostly solid (2 points) Calcifications: Punctate calcifications (3 points) Total points: 7 TIRADS: TR5: Highly suspicious. US/US thyroid IMPRESSION: Multiple bilateral thyroid nodules as described. Ultrasound-guided fine-needle aspiration of the most suspicious nodules at the mid and lower pole of the left thyroid lobe (nodules #4 and 5) is recommended. [facility] Medical History (Updated 07/08/24 @ 10:20 by Sana Fernandez MD) Multiple thyroid nodules Subclinical hyperthyroidism Asthma Plantar fasciitis Past heart attack High cholesterol Social History Housing: House Alcohol intake: current Patient Tobacco Use Status: Former Tobacco user Cigarette Packs Per Day: 2.5 Years Smoked: 12 e-Cigarette/Vaping Use: Never Used Second Hand Smoke Exposure: No Substance Use Type: Marijuana service: Yes Current occupational status: retired Current occupational exposures/hazards: No Cognitive needs: No Hearing needs: No Vision needs: No Assessment & Plan Assessment & Plan (1) Subclinical hyperthyroidism: Code(s): E05.90 - Thyrotoxicosis, unspecified without thyrotoxic crisis or storm Category: Medical Plan: 58-year-old male with a history of subclinical hyperthyroidism who is coming in today to establish care. Apparently was diagnosed some 20 years ago and has had low TSH levels. Labs from March 2024 03/25/2024 showed TSH low at 0.16, with free T4 of 1.28 normal, labs repeated 04/11/2024 showed TSH improved but still low at 0.20, free T4 1.21, labs repeated 05/12/2024 showed TSH again slightly improved but low at 0.22, with free T4 of 1.19. Given that he is seeing his TSH has been low for many years, unlikely this is because of thyroiditis. No prior contrast exposure. He has a history of heart disease with an MS, hence could possibly consider treatment in his case. Otherwise he is less than 65 years of age and TSH levels are greater than 0.1, and no history of osteoporosis. Ultrasound of the thyroid 06/15/2024, I reviewed the images myself which showed a subcentimeter solid, hypoechoic isthmus nodule, a right midpole subcentimeter cyst, another right midpole solid, hypoechoic TR 4 category nodule that is subcentimeter in size, a right superior pole mixed cystic solid subcentimeter nodule measuring 0.6 cm in the largest dimension which has some colloid in it, I left midpole subcentimeter mixed cystic solid nodule with a solid component that has some calcifications in a, however this is a well-defined nodule which is still subcentimeter size, I would categorize this is a TR 4 nodule, and 0.7 cm subcentimeter left midpole solid, hypoechoic, taller than wide, irregular margin nodule TR 5 category nodule (high suspicion), with the largest dominant left lower pole 2.2 cm nodule which is mixed cystic solid, hypoechoic/isoechoic, with a apparently questionable punctate echogenic foci, however I do not see this on landing just myself. I would categorize this has a TR 3 nodule instead of a TR 5. He forgot to do repeat labs with a antibodies prior to this appointment. At this point I have asked him to do blood work today so we can see whether he has autoimmune thyroid disease, if antibodies are negative I would like to proceed and get an uptake and scan to see if he has toxic multinodular goiter. While some of his nodules are suspicious and warrant a biopsy (left lower 2.2 cm and follow up needed for the left midpole 0.7 cm TR 5 nodule), if these nodules are hot, these have a lower chance of being cancerous, and for now I will hold off on the biopsy. However if the nodules that meet criteria for FNA or cold nodules, we will proceed with FNA biopsy. Plan: -do TSH, free T4, total T3, TSI, TPO antibodies i (orders are already in place from last appointment) -we will reach out with the results, and depending on results we will order a thyroid uptake and scan -follow up in 5 weeks to discuss results (2) Multiple thyroid nodules: Code(s): E04.2 - Nontoxic multinodular goiter Category: Medical Plan: See above Plan See above Patient Instructions: Please do blood work today We will reach out with results next week or so Then most likely we will plan to order an uptake and scan Follow up in 5 weeks to discuss results Coding Level of Care Code Est Pt Level 4 (50556) Diagnoses Subclinical hyperthyroidism E05.90 Multiple thyroid nodules E04.2 Time Spent (min) 30
== END 2024-07-08 10:18 | disposition home or self-care (01) ==
LOC: HO.ENCR 09:55
PROVIDERS: PCP Physician Assistant; Visit Provider Student in an Organized Health Care Education/Training Program
DX: E05.90 Thyrotoxicosis, unspecified without thyrotoxic crisis or storm (principal); E04.2 Nontoxic multinodular goiter
CPT/HCPCS: 99214

== ENCOUNTER 2024-07-11 09:25 | Outpatient (REF) | payer OTHER, SELFPAY ==
[2024-07-11 11:18] LABS: Free T4 (Free Thyroxine) 1.15 ng/dL (0.71-1.85); Thyroid Stimulating Hormone 0.31 uIU/mL (0.32-4.0)
[2024-07-12 04:38] LABS: Triiodothyronine T3 Total 109 ng/dL (76-181)
[2024-07-12 19:34] LABS: Thyroid Peroxidase Antibodies <1 IU/mL (<9)
[2024-07-13 17:43] LABS: Thyroid Stimulating Immunoglob <89 % baseline (<140)
[2024-07-14 15:58] LABS: Thyrotropin Receptor Antibody <1.00 IU/L (<=2.00)
== END 2024-07-11 09:26 | disposition home or self-care (01) ==
LOC: HO.WFDLDS 09:25
PROVIDERS: Visit Provider Student in an Organized Health Care Education/Training Program
DX: E05.90 Thyrotoxicosis, unspecified without thyrotoxic crisis or storm (principal)
CPT/HCPCS: 36415; 83520; 84439; 84443; 84445; 84480; 86376

== ENCOUNTER 2024-07-14 11:29 | Outpatient (AMB) | payer OTHER, SELFPAY ==
--- NOTE | 2024-07-14 11:30 | MHC.OFFVIS ---
Intake Visit Reasons: 2 week follow up RFA Intake Note: Patient presents for follow up RFA. No complaints. Accompanied by: Self / Same As Patient Allergies amoxicillin Allergy (Intermediate, Verified 07/14/24 11:30) Abdominal Pain bee venom protein (honey bee) Allergy (Intermediate, Verified 07/14/24 11:30) Swelling droperidol [From Inapsine] Allergy (Intermediate, Verified 07/14/24 11:30) lock jaw prochlorperazine [From Compazine] Allergy (Intermediate, Verified 07/14/24 11:30) lock jaw shellfish derived Allergy (Intermediate, Verified 07/14/24 11:30) Hives HPI HPI 2 week follow up RFA: Details: Matthew is presenting today as a follow up to right small saphenous vein RFA, performed on 07/01/2024. He states he has not noticed any, he also has knee pain and other pain in his foot that he has been dealing with as well. He states it was hard to tell the difference where the pain is originating. He states he did just complete 1 month of physical therapy. He states overall his right leg feels much better. He states the Steri-Strips have been not fallen off yet. He denies any bleeding or draining from the site. [facility] Medical History (Updated 07/08/24 @ 10:20 by Sana Fernandez MD) Multiple thyroid nodules Subclinical hyperthyroidism Asthma Plantar fasciitis Past heart attack High cholesterol Social History Housing: House Alcohol intake: current Patient Tobacco Use Status: Former Tobacco user Cigarette Packs Per Day: 2.5 Years Smoked: 12 e-Cigarette/Vaping Use: Never Used Second Hand Smoke Exposure: No Substance Use Type: Marijuana service: Yes Current occupational status: retired Current occupational exposures/hazards: No Cognitive needs: No Hearing needs: No Vision needs: No Review of Systems Const Reports as per HPI and Denies weakness ENT Reports Normal hearing present and Denies dizziness Card Reports as per HPI, Denies chest pain, Denies chest pain at rest, Denies chest pain with activity, Denies dyspnea and Denies dyspnea on exertion Resp Reports as per HPI, Denies cough, Denies dyspnea and Denies dyspnea on exertion GI Reports as per HPI, Denies abdominal pain, Denies nausea and Denies vomiting Musc Denies numbness Skin/Breast Reports as per HPI, Denies erythema and Denies wounds Neuro Reports Normal hearing present, Denies dizziness, Denies numbness, Denies Sensory deficit (Neuro) and Denies weakness Psych Reports no additional complaints Endo Reports no additional complaints Physical Exam Const General: healthy appearing and no acute distress Orientation/consciousness: patient oriented x3 HEENT Head: Yes normal to inspection Ears: hearing grossly normal bilaterally Mouth: Normal oral and palatal mucosa present Resp Effort & Inspection: normal respiratory effort and able to speak in complete sentences Auscultation: clear to auscultation bilaterally Cardio Jugular venous distension: no JVD Rate: regular rate Rhythm: regular rhythm Heart sounds: S1 normal heart sound present and S2 normal heart sound present Bruits: no abdominal aortic bruits, no carotid bruits, no femoral bruits and no renal bruits Peripheral pulses: Peripheral pulses 2+ throughout GI Inspection: Yes normal to inspection Palpation (GI): No Abdominal aortic bruit present Skin General skin exam: no rashes or lesions noted Wounds: no wounds Hair: normal Neuro General: patient oriented x3 Cranial nerves: Yes Normal hearing present Cognition (Neuro): normal cognition Gait exam (Neuro): Normal gait present Motor exam (neuro): 5/5 motor strength present throughout Sensory Exam: No Sensory deficit (Neuro) Extrem Other: Posterior right leg: Steri-Strips easily removed. Incision site is clean, dry, and intact. No bleeding or drainage noted. Right lower extremity: Hemosiderin staining noted from pretibial area down to ankles, circumferentially. General: Yes normal to inspection, Yes full ROM, Yes capillary refill normal and Yes normal gait Assessment & Plan Assessment & Plan (1) Varicose veins of right lower extremity with inflammation: Comment: 07/01/2024 - right small saphenous vein radiofrequency ablation Code(s): I83.11 - Varicose veins of right lower extremity with inflammation Category: Medical Plan: Matthew is presenting today as a follow up to right small saphenous vein RFA, performed on 07/01/2024. He states he has been doing well but has not noticed a significant difference with the procedure. He states he has just also finished 1 month of physical therapy for knee and foot pain. He states overall he is feeling much better. I removed the Steri-Strips, and the incision site was clean and dry. We discussed the importance of continuing with compression stockings, physical activity, and elevating his legs. We had a lengthy discussion about the staining in that it can take a significant amount of time for it to start feeding but likely we will not go completely away. We discussed that if he has any other vascular concerns, he can reach out to us at any point. Thank you for allowing us to participate in the patient's care. If there are any questions or concerns, please do not hesitate to reach out to us. Coding Level of Care Code Est Pt Level 3 (70605) Diagnoses Varicose veins of right lower extremity with inflammation I83.11
== END 2024-07-14 11:39 | disposition home or self-care (01) ==
LOC: HO.HVS 11:30
PROVIDERS: PCP Physician Assistant; Visit Provider Physician Assistant Surgical
DX: I83.11 Varicose veins of right lower extremity with inflammation (principal)
CPT/HCPCS: 99213

== ENCOUNTER → 2024-07-14 11:29 | Outpatient (BNVA) | payer OTHER, SELFPAY | PROVIDERS: PCP Physician Assistant; Visit Provider Physician Assistant Surgical ==

== ENCOUNTER 2024-07-19 10:27 | Outpatient (REF) | payer OTHER, SELFPAY ==
--- NOTE | ~2024-07-19 | CT_ITS ---
EXAMINATION: CT ABDOMEN AND PELVIS WITH CONTRAST CLINICAL INFORMATION: [Lower abdominal pain. COMPARISON: None available. TECHNIQUE: Multidetector volumetric images were obtained from the superior aspect of the liver through the pubic symphysis following administration 85 mL of Omnipaque 350 intravenous contrast. Sagittal and coronal reformatted images were obtained on the technologist's workstation. Oral contrast: Yes This CT examination was performed using dose optimization techniques as appropriate, variously including the following: *Automated exposure control *Adjustment of mA and/or kV according to patient size (this includes techniques or standardized protocols for targeted exams where dose is matched to indication/reason for exam; i.e. extremities or head) *Use of iterative reconstruction technique. DLP: 688 mGy centimeter. FINDINGS: LUNG BASES: No acute airspace disease. LIVER, GALLBLADDER, AND BILIARY TREE: Liver measures 14 cm. No focal lesion. The portal veins and intrahepatic portion of the IVC are patent. No intrahepatic biliary ductal dilatation. Punctate calcifications in the dependent portion of the gallbladder lumen. No pericholecystic fluid collection or gallbladder wall thickening. No extrahepatic biliary ductal dilatation. PANCREAS: No focal lesion. No main pancreatic ductal dilatation. Punctate calcifications in the head of the pancreas. No peripancreatic fluid collections. SPLEEN: 10 cm. No focal lesion. ADRENAL GLANDS: There is a 2.2 cm nodular lesion in the left adrenal gland which measures 63 Hounsfield units at the portal venous phase. No nodular lesions, right adrenal gland. KIDNEYS AND URETERS: Renal cortical defect/prior surgical procedure involving the upper mid portion of the left kidney. Punctate calcifications in the corticomedullary junction left kidney. No hydronephrosis in the right kidney. No gross renal mass. There is a 1 cm exophytic cystic lesion in the anterior midportion of the left kidney. There is a 0.6 cm exophytic cyst in the posterior upper pole left kidney.. BLADDER: Fluid-filled. GASTROINTESTINAL TRACT: No intestinal obstruction pattern. Appendix is normal. No pneumatosis intestinalis. No intestinal wall thickening. No ascites. No pneumoperitoneum Hiatal hernia, small to moderate size.. ABDOMINAL WALL: Diastases abdominal rectus muscles in the periumbilical region. LYMPH NODES: Nonspecific prominent lymph nodes in the retroperitoneum VASCULAR: There is a focal 4.5 cm crescent-shaped calcification in the cardiac apex. Calcified plaques in the aorta and iliac arteries without aneurysm or dissection. Calcified plaques in the splenic artery. PELVIC VISCERA: Calcifications at the seminal vesicles. Prostate gland is not enlarged versus prior procedure. OSSEOUS STRUCTURES: Multilevel thoracic and lumbar spondylosis more conspicuous at L5-S1. Osteopenia versus osteoporosis. No gross lytic or blastic lesions. No acute fracture or gross listhesis. CT/CT abdomen pelvis w IV con IMPRESSION: Probable nonobstructing nephrolithiasis left kidney. Prior surgical procedure left kidney. Exophytic cystic lesions, left kidney. Cholelithiasis. Focal crescent-shaped calculation the cardiac apex suggesting calcified pseudoaneurysm versus akinetic/prior infarct. 2.2 cm nodule, left adrenal gland. Hiatal hernia. Fleischner guidelines were followed. Electronically signed by: Rohit Silva MD 07/19/2024 12:16 PM EDT
[2024-07-19] MEDS: iohexoL 350 MG/ML 100 ML INFUS..BTL 85 ML IV (12:01)
[2024-07-21 08:18] LABS: Creatinine POC 0.7 mg/dL (0.5-1.4); GFR POC > 60
== END 2024-07-19 10:28 | disposition home or self-care (01) ==
LOC: HO.CT 10:27
PROVIDERS: PCP Physician Assistant; Visit Provider Physician Assistant
DX: R10.32 Left lower quadrant pain (principal); R19.7 Diarrhea, unspecified; R11.0 Nausea
CPT/HCPCS: 74177; 82565; Q9967

== ENCOUNTER → 2024-07-19 10:53 | Outpatient (BNV) | payer OTHER, SELFPAY | PROVIDERS: PCP Physician Assistant; Visit Provider Radiology Diagnostic Radiology | DX: R10.32 Left lower quadrant pain (principal) | CPT/HCPCS: 74177 ==

== ENCOUNTER → 2024-07-21 09:54 | Outpatient (REF) | payer OTHER, SELFPAY ==
--- NOTE | 2024-07-21 09:56 | CA_ITS ---
Transthoracic Echocardiogram Patient (Last, First, Middle): Matthew Julien, Gender: Male Date of : 1965 Age: 58 Procedure Date: 07/21/2024 Procedure Type: Transthoracic Echocardiogram Location: OP Height: 177.8 cm Weight: 111.13 kg BSA: 2.28 m2 Heart Rate: bpm BP: 120 / 80 mmHg It Technical Architect: ELLEN Referring MD: Jodie Husain PA-C Symptoms: I51.89 - Other ill-defined heart diseases Study Quality: Technically Difficult, contrast ECG Rhythm: Sinus Conclusions: - Technically difficult study. - The left ventricular systolic function is mildly decreased. The visually estimated ejection fraction is between 45-50%. - Difficult to visualize wall motion spite of contrast use. Suspect wall motion abnormality in the inferior/ inferoseptal wall. [place] not well visualized. - No obvious valvular pathology seen on this study. - There is moderate dilatation of the sinuses of Valsalva measuring 4.80 cm and mild dilatation of the ascending aorta measuring 4.10 cm. Findings Procedure Information Contrast agent, definity, is being given per protocol without apparent complications. Left Ventricle Normal left ventricular cavity size. The left ventricular systolic function is mildly decreased. The visually estimated ejection fraction is between 45 50%. There is evidence of regional wall motion abnormalities. Evidence suggests grade I (mild) diastolic dysfunction. There is moderate septal asymmetric hypertrophy. Wall Motion Rest Echo Findings The inferoseptal wall is hypokinetic. The inferior wall is akinetic. Right Ventricle Normal right ventricular cavity size and systolic function. Aortic Valve There is a normal trileaflet aortic valve. There is no aortic valve stenosis. There is no aortic valve regurgitation. Mitral Valve The mitral valve appears normal. There is no mitral valve regurgitation. There is no mitral valve stenosis. Pulmonic Valve The pulmonic valve is likely normal. Tricuspid Valve There is trace tricuspid valve regurgitation. Tricuspid regurgitation envelope is inadequate for calculation of right ventricular systolic pressure. Great Vessels There is moderate dilatation of the sinuses of Valsalva measuring 4.80 cm and mild dilatation of the ascending aorta measuring 4.10 cm. Venous The inferior vena cava is dilated and collapses greater than 50% with inspiration. Pericardium/Pleural There is no evidence of pericardial effusion. Prior Study Comparison No prior study available for comparison. Recommendations, Care & Conclusions No obvious valvular pathology seen on this study. Measurements 2D Linear Measurements IVSd: 1.40 0.6-0.9/0.6-1.0 cm LVIDd: 5.95 3.9-5.3/4.2-5.9 cm LVIDd Index: 2.61 2.4-3.2/2.2-3.1 cm/m2 LVIDs: 4.03 2.0-3.6 cm LVPWd: 0.95 0.7-1.1 cm LA Diam: 3.80 2.7-3.8/3.0-4.0 cm LAIDs Index: 1.67 1.5-2.3 cm/m2 LV Mass: 375.16 67-162/88-224 g LV Mass Index: 164.54 43-95/49-115 g/m2 LVOT Diam: 2.40 3.0+(-)1.3 cm 2D Systolic Function EF 4C: 43.70 >55% EF 2C: 63.60 >55% EF BiP: 55.70 >55% Mitral Valve MV Pk E: 0.60 MV PK A: 0.84 MV Decel Time: 291.00 E/A: 0.70 E'Lateral: 6.09 E'Medial: 4.13 E/E' Med: 14.40 E/E' Lat: 9.80 PHT: 85.00 MVA PHT: 2.59 Decel Kaufman: 2.04 Aortic Valve AoV Pk Umberto: 1.29 AoV Mn Umberto: 0.90 AoV VTI: 0.30 AoV Pk Grad: 7.00 Aov Mn Grad: 4.00 MARIAMA Cont.VTI: 3.61 LVOT LVOT Pk Umberto: 1.06 LVOT Mn Umberto: 0.72 LVOT VTI: 0.24 LVOT Pk Grad: 4.00 LVOT Mn Grad: 2.00 LVOT Diam: 2.40 LVOT Area: 4.52 Diastolic Function MV Pk E: 0.60 MV Pk A: 0.84 E/A: 0.70 E'Medial: 4.13 E/E' Med: 14.40 E' Laterial: 6.09 E/E' Lat: 9.80 Right Ventricle TAPSE (mm): 19.30 TVS' Umberto: 10.90 Tricuspid Valve RA Press: 8.00 Great Vessels Aorta Sinus of Valsalva: 4.80 2.0-3.[address] Ridge: 3.66 1.7-3.4 cm Ao Asc: 4.10 2.1-3.4 cm Updated in Other Vendor System with Status of Final Kennedy Palacios MD electronically signed on 07/23/2024 9:26:35 AM with status of Final
== END ==
LOC: HO.CARD 09:54
PROVIDERS: PCP Physician Assistant; Visit Provider Physician Assistant
DX: I51.89 Other ill-defined heart diseases (principal); E78.5 Hyperlipidemia, unspecified; I10 Essential (primary) hypertension
CPT/HCPCS: 93306; Q9957

== ENCOUNTER → 2024-07-21 09:56 | Outpatient (BNV) | payer OTHER, SELFPAY | PROVIDERS: PCP Physician Assistant; Visit Provider Internal Medicine | DX: I51.89 Other ill-defined heart diseases (principal) | CPT/HCPCS: 93306 ==

== ENCOUNTER 2024-08-02 10:49 | Outpatient (AMB) | payer OTHER, SELFPAY ==
--- NOTE | 2024-08-02 10:55 | A.OFFVIS_ITS ---
Vital Signs 08/02/24 10:56 Height 5 ft 10 in Weight 250 lb BMI 35.9 Intake Visit Reasons: Pain s/p 07/14 RFA Intake Note: follow up Right SSV RFA 07/01/24 for pain that started over the treated area 2 to 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: No Accompanied by: Self / Same As Patient Allergies amoxicillin Allergy (Intermediate, Verified 08/02/24 10:59) Abdominal Pain bee venom protein (honey bee) Allergy (Intermediate, Verified 08/02/24 10:59) Swelling droperidol [From Inapsine] Allergy (Intermediate, Verified 08/02/24 10:59) lock jaw prochlorperazine [From Compazine] Allergy (Intermediate, Verified 08/02/24 10:59) lock jaw shellfish derived Allergy (Intermediate, Verified 08/02/24 10:59) Hives HPI HPI Pain s/p 07/14 RFA: Details: The patient is a 58-year-old male presenting with postoperative pain and swelling following a small saphenous vein radiofrequency ablation performed on July 01, 2024. Since the procedure, he has experienced an escalation in discomfort and signs of swelling around the incision. Initial postoperative weeks were unremarkable, but more recently, he has noted exacerbated swelling and vein prominence. He reports using warm compresses and occasionally relies on heating pads to manage these symptoms. The application of non-steroidal anti- inflammatory drugs like Advil, Motrin, or Aleve has been recommended. The patient was counseled that engaging in activities such as gardening and mowing the lawn is safe, but soreness may persist, which should subside gradually over the next few months. He was advised on the importance of resting and employing pain relief measures if necessary. [facility] Medical History Multiple thyroid nodules Subclinical hyperthyroidism Asthma Plantar fasciitis Past heart attack High cholesterol Social History Housing: House Alcohol intake: current Patient Tobacco Use Status: Former Tobacco user Cigarette Packs Per Day: 2.5 Years Smoked: 12 e-Cigarette/Vaping Use: Never Used Second Hand Smoke Exposure: No Substance Use Type: Marijuana service: Yes Current occupational status: retired Current occupational exposures/hazards: No Cognitive needs: No Hearing needs: No Vision needs: No Review of Systems Const All systems reviewed & are unremarkable except as noted in HPI and below Reports no additional complaints ENT Reports Normal hearing present Card Denies chest pain, Denies chest pain at rest, Denies chest pain with activity and Denies pedal edema Resp Denies cough GI Denies abdominal pain Musc Denies abnormal gait, Denies muscle cramps and Denies radiating pain into limb Skin/Breast Denies skin ulcer and Denies wounds Neuro Reports Normal hearing present and Denies abnormal gait Psych Reports no additional complaints Physical Exam Vital Signs: BMI result Body Mass Index 35.9 Const General: cooperative, healthy appearing and comfortable Orientation/consciousness: oriented to person, oriented to place and oriented to time HEENT Head: Yes normal to inspection Neck Neck: Yes normal visual inspection Carotids: no bruits Chest Chest palpation & inspection: normal inspection of the chest Resp Effort & Inspection: normal respiratory effort and able to speak in complete sentences Auscultation: clear to auscultation bilaterally, no crackles, no rales, no rhonchi and no wheezes Cardio Rate: regular rate Rhythm: regular rhythm Heart sounds: S1 normal heart sound present and S2 normal heart sound present Bruits: no carotid bruits Peripheral pulses: Peripheral pulses 2+ throughout GI Inspection: Yes normal to inspection Skin Wounds: no wounds Hair: normal Neuro General: oriented to person, oriented to place and oriented to time Cranial nerves: Yes CN's II-XII intact bilaterally and Yes Normal hearing present Cognition (Neuro): normal cognition Motor exam (neuro): 5/5 motor strength present throughout Extrem Other: venous exam: No significant superficial varicosities or spider telangiectasias, minimal edema General: No clubbing, No cyanosis and No edema Psych Appearance: grossly normal Mental Status: mental status grossly normal Speech and movement: Normal speech and movement present Assessment & Plan Assessment & Plan (1) Varicose veins of right lower extremity with inflammation: Comment: 07/01/2024 - right small saphenous vein radiofrequency ablation Code(s): I83.11 - Varicose veins of right lower extremity with inflammation Category: Medical Plan: I discussed with the patient that the increased pain and swelling post- radiofrequency ablation is expected and should resolve over time. Treatment options including warm compresses, heating pads, and NSAIDs were reviewed for symptom control. The patient was reassured regarding the normal course of healing and was advised to gradually resume activities with precautions against exacerbating soreness. The potential recurrence of vein protrusion was addressed, with reassurance that persistent changes would likely ameliorate as the healing process continues. Plan Patient was informed and verbally consented to the use of an ambient scribe for clinic note documentation during this visit. Patient Instructions: - Apply warm compresses to the affected area as needed. - Use a heating pad if the pain persists. - Take Advil, Motrin, or Aleve for additional pain relief following recommended dosing. - Gradually return to physical activities like gardening or mowing the lawn as tolerated. - Rest and increase care if symptoms worsen. Coding Level of Care Code Est Pt Level 3 (56043) Diagnoses Varicose veins of right lower extremity with inflammation I83.11
[2024-08-02 10:56] VITALS: BMI 35.9
== END 2024-08-02 11:44 | disposition home or self-care (01) ==
LOC: HO.HVS 10:50
PROVIDERS: PCP Physician Assistant; Visit Provider Surgery Vascular Surgery
DX: I83.11 Varicose veins of right lower extremity with inflammation (principal)
CPT/HCPCS: 99213

== ENCOUNTER → 2024-08-02 10:49 | Outpatient (BNVA) | payer OTHER, SELFPAY | PROVIDERS: PCP Physician Assistant; Visit Provider Surgery Vascular Surgery ==

== ENCOUNTER 2024-08-03 15:51 | Outpatient (AMB) | payer OTHER, SELFPAY ==
--- NOTE | 2024-08-03 16:05 | A.OFFVIS_ITS ---
Intake Visit Reasons: f/u labs Allergies amoxicillin Allergy (Intermediate, Verified 08/02/24 10:59) Abdominal Pain bee venom protein (honey bee) Allergy (Intermediate, Verified 08/02/24 10:59) Swelling droperidol [From Inapsine] Allergy (Intermediate, Verified 08/02/24 10:59) lock jaw prochlorperazine [From Compazine] Allergy (Intermediate, Verified 08/02/24 10:59) lock jaw shellfish derived Allergy (Intermediate, Verified 08/02/24 10:59) Hives Medication List - Last Reconciled 08/03/24 by Jodie Husain PA-C albuterol sulfate 90 mcg/actuation 1 puff inhalation Q4-6H PRN aspirin 81 mg PO DAILY atorvastatin 20 mg PO DAILY budesonide-formoterol 160-4.5 mcg/actuation (Symbicort) 2 puffs inhalation BID PRN lisinopril 2.5 mg PO DAILY metoprolol succinate ER 50 mg PO DAILY tamsulosin 0.4 mg PO BID HPI HPI f/u labs: Details: Patient is a 58-year-old male with a significant past medical history of hypertension, hyperlipidemia, diastolic dysfunction, hypothyroidism, varicose veins presenting today for a follow up. He had a recent echo and ct abd and pelvis for ongoing complaints. CV: He is currently on metoprolol 50 mg daily, aspirin and atorvastatin [address] Rust for his heart failure and states he just saw him. No cp, sob. Has follow up next March 2025. Conclusions: - Technically difficult study. - The left ventricular systolic function is mildly decreased. The visually estimated ejection fraction is between 45-50%. - Difficult to visualize wall motion spite of contrast use. Suspect wall motion abnormality in the inferior/ inferoseptal wall. Dawson not well visualized. - No obvious valvular pathology seen on this study. - There is moderate dilatation of the sinuses of Valsalva measuring 4.80 cm and mild dilatation of the ascending aorta measuring 4.10 cm. GI: He still gets right sided abdominal pain after eating. He states some of the lower pain is gone but also still intermittently present. He just completed CT FINDINGS: LUNG BASES: No acute airspace disease. LIVER, GALLBLADDER, AND BILIARY TREE: Liver measures 14 cm. No focal lesion. The portal veins and intrahepatic portion of the IVC are patent. No intrahepatic biliary ductal dilatation. Punctate calcifications in the dependent portion of the gallbladder lumen. No pericholecystic fluid collection or gallbladder wall thickening. No extrahepatic biliary ductal dilatation. PANCREAS: No focal lesion. No main pancreatic ductal dilatation. Punctate calcifications in the head of the pancreas. No peripancreatic fluid collections. SPLEEN: 10 cm. No focal lesion. ADRENAL GLANDS: There is a 2.2 cm nodular lesion in the left adrenal gland which measures 63 Hounsfield units at the portal venous phase. No nodular lesions, right adrenal gland. KIDNEYS AND URETERS: Renal cortical defect/prior surgical procedure involving the upper mid portion of the left kidney. Punctate calcifications in the corticomedullary junction left kidney. No hydronephrosis in the right kidney. No gross renal mass. There is a 1 cm exophytic cystic lesion in the anterior midportion of the left kidney. There is a 0.6 cm exophytic cyst in the posterior upper pole left kidney.. BLADDER: Fluid-filled. GASTROINTESTINAL TRACT: No intestinal obstruction pattern. Appendix is normal. No pneumatosis intestinalis. No intestinal wall thickening. No ascites. No pneumoperitoneum Hiatal hernia, small to moderate size.. ABDOMINAL WALL: Diastases abdominal rectus muscles in the periumbilical region. LYMPH NODES: Nonspecific prominent lymph nodes in the retroperitoneum VASCULAR: There is a focal 4.5 cm crescent-shaped calcification in the cardiac apex. Calcified plaques in the aorta and iliac arteries without aneurysm or dissection. Calcified plaques in the splenic artery. PELVIC VISCERA: Calcifications at the seminal vesicles. Prostate gland is not enlarged versus prior procedure. OSSEOUS STRUCTURES: Multilevel thoracic and lumbar spondylosis more conspicuous at L5-S1. Osteopenia versus osteoporosis. No gross lytic or blastic lesions. No acute fracture or gross listhesis. CT/CT abdomen pelvis w IV con IMPRESSION: Probable nonobstructing nephrolithiasis left kidney. Prior surgical procedure left kidney. Exophytic cystic lesions, left kidney. Cholelithiasis. Focal crescent-shaped calculation the cardiac apex suggesting calcified pseudoaneurysm versus akinetic/prior infarct. 2.2 cm nodule, left adrenal gland. Hiatal hernia. . Endo: following with Dr. Fernandez for hyperthyroidism and multiple thyroid nodules. [facility] Medical History Multiple thyroid nodules Subclinical hyperthyroidism Asthma Plantar fasciitis Past heart attack High cholesterol Social History Housing: House Alcohol intake: current Patient Tobacco Use Status: Former Tobacco user Cigarette Packs Per Day: 2.5 Years Smoked: 12 e-Cigarette/Vaping Use: Never Used Second Hand Smoke Exposure: No Substance Use Type: Marijuana service: Yes Current occupational status: retired Current occupational exposures/hazards: No Cognitive needs: No Hearing needs: No Vision needs: No Telehealth Telehealth Telehealth Platform: Telephone Location of provider rendering services: practice address Location of patient: address on file Patient Identification confirmed using: Name, : Yes Telehealth method: voice only Patient verbally consented to treatment: Yes Patient verbally consented to billing insurance company: Yes Patient informed of any privacy concerns related to visit: Yes Minutes spent on Phone/Video with Pt.: 18 Assessment & Plan Assessment & Plan (1) Adrenal nodule: Code(s): E27.9 - Disorder of adrenal gland, unspecified Category: Medical Plan: referral to endo (2) Cholelithiases: Code(s): K80.20 - Calculus of gallbladder without cholecystitis without obstruction Category: Medical Plan: ref to gen surgery. He is experiencing abdominal pain after eating. reviewed signs and symptoms that would require emergent medical treatment (3) Diastolic dysfunction: Code(s): I51.89 - Other ill-defined heart diseases Category: Medical Plan: following with cards, has previous [place] (4) Renal cyst, left: Code(s): N28.1 - Cyst of kidney, acquired Category: Medical Plan: ref to urology (5) Renal stones: Code(s): N20.0 - Calculus of kidney Category: Medical Plan: referral to urology (6) Osteoporosis: Code(s): M81.0 - Age-related osteoporosis without current pathological fracture Category: Medical Plan: bone density ordered (7) Aortic dilatation: Code(s): I77.819 - Aortic ectasia, unspecified site Category: Medical Plan: will fax echo and ct to Dr. Aldana Orders: Orders XR DEXA axial skeleton Today M81.0 - Age-related osteoporosis without current pathological fracture Referrals Urology Referral N20.0 - Calculus of kidney, N28.1 - Cyst of kidney, acquired Endocrinology Referral E04.2 - Nontoxic multinodular goiter, E27.9 - Disorder of adrenal gland, unspecified, M81.0 - Age-related osteoporosis without current pathological fracture General Surgery Referral K80.20 - Calculus of gallbladder without cholecystitis without obstruction Coding Level of Care Code Tele Est Pt Level 3 (89077) Diagnoses Adrenal nodule E27.9 Cholelithiases K80.20 Diastolic dysfunction I51.89 Renal cyst, left N28.1 Renal stones N20.0 Osteoporosis M81.0 Aortic dilatation I77.819
== END 2024-08-03 17:05 ==
LOC: HO.HMCFM 15:51
PROVIDERS: PCP Physician Assistant; Visit Provider Physician Assistant
DX: E27.9 Disorder of adrenal gland, unspecified (principal); K80.20 Calculus of gallbladder without cholecystitis without obstruction; I51.89 Other ill-defined heart diseases; N28.1 Cyst of kidney, acquired; N20.0 Calculus of kidney; M81.0 Age-related osteoporosis without current pathological fracture; I77.819 Aortic ectasia, unspecified site

== ENCOUNTER → 2024-08-03 15:51 | Outpatient (BNVA) | payer OTHER, SELFPAY | PROVIDERS: PCP Physician Assistant; Visit Provider Physician Assistant ==

== ENCOUNTER → 2024-09-05 09:03 | Outpatient (REF) | payer OTHER, SELFPAY ==
--- OUTSIDE RECORDS SUMMARY | 2024-09-05 09:42 | XMS_ITS | Continuity of Care Document ---
Author Organization [facility] Address [address] [place] [id number] Problems Condition ICD9 code ICD10 code SNOMED code Start Date End Date S tatus Encounter for screening for other metabolic disorders Z13.228 Results No Results Allergies, adverse reactions, alerts No known allergies and adverse reactions Medications No administered medications reported Vital Signs No vital signs reported Social History No smoking Hx information available
== END ==
LOC: HO.SL 09:03
PROVIDERS: PCP Physician Assistant; Visit Provider Physician Assistant
DX: G47.33 Obstructive sleep apnea (adult) (pediatric) (principal); G44.52 New daily persistent headache (NDPH)
CPT/HCPCS: 95806

== ENCOUNTER → 2024-09-05 09:23 | Outpatient (BNV) | payer OTHER, SELFPAY | PROVIDERS: PCP Physician Assistant; Visit Provider Internal Medicine | DX: G47.33 Obstructive sleep apnea (adult) (pediatric) (principal) | CPT/HCPCS: 95806 ==

== ENCOUNTER 2024-09-20 09:31 | Outpatient (AMB) | payer OTHER, SELFPAY ==
--- NOTE | 2024-09-20 09:33 | A.OFFVIS_ITS ---
Vital Signs 09/20/24 09:46 Height 5 ft 10 in Weight 242 lb 6 oz BMI 34.8 BP 123/68 Blood Pressure Location Lt brachial Position Sitting Pulse 73 Intake Visit Reasons: Calculus of gallbladder Intake Note: Patient is seen in office for calculus of the gallbladder. 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 Accompanied by: Self / Same As Patient Allergies amoxicillin Allergy (Intermediate, Verified 09/20/24 09:41) Abdominal Pain bee venom protein (honey bee) Allergy (Intermediate, Verified 09/20/24 09:41) Swelling droperidol (From Inapsine) Allergy (Intermediate, Verified 09/20/24 09:41) lock jaw prochlorperazine (From Compazine) Allergy (Intermediate, Verified 09/20/24 09:41) lock jaw shellfish derived Allergy (Intermediate, Verified 09/20/24 09:41) Hives Medication List - Last Reconciled 09/20/24 by Werner Donahue MD albuterol sulfate 90 mcg/actuation 1 puff inhalation Q4-6H PRN aspirin 81 mg PO DAILY atorvastatin 20 mg PO DAILY budesonide-formoterol 160-4.5 mcg/actuation (Symbicort) 2 puffs inhalation BID PRN lisinopril 2.5 mg PO DAILY metoprolol succinate ER 50 mg PO DAILY tamsulosin 0.4 mg PO BID HPI Comments Details: 59-year-old male patient presenting with complaints of chronic abdominal pain with concerns for gallstones and kidney stones. He noted abdominal pain related to intestinal issues for the past 40 years which healing to stress and bad diet. He was found to have kidney stones and gallstones on a recent CT abdomen and pelvis performed on 07/19/2024. The pain is mainly in the flanks currently both right and left and does not seem to be associated with food except for occasionally fatty food which does seem to increase his pain. He has a history of a [place] in 1992 and does occasionally have chest discomfort which he is being followed by the operational risk consultant. Review of the CT of the abdomen and pelvis does reveal a small inessa of calcification within the gallbladder closely associated with the gallbladder wall. [facility] Medical History Multiple thyroid nodules Subclinical hyperthyroidism Asthma Plantar fasciitis Past heart attack High cholesterol Social History Housing: House Alcohol intake: current Patient Tobacco Use Status: Former Tobacco user Cigarette Packs Per Day: 2.5 Years Smoked: 12 e-Cigarette/Vaping Use: Never Used Second Hand Smoke Exposure: No Substance Use Type: Marijuana service: Yes Current occupational status: retired Current occupational exposures/hazards: No Cognitive needs: No Hearing needs: No Vision needs: No Review of Systems Const All systems reviewed & are unremarkable except as noted in HPI and below Denies chills, Denies fever(s), Denies headache(s), Denies poor appetite and Denies weakness ENT Denies headache(s) Card Denies chest pain, Denies irregular heart rhythm, Denies palpitations and Denies dyspnea Resp Denies cough, Denies excessive phlegm production and Denies dyspnea GI Reports abdominal pain, Reports bloating, Denies change in bowel habits, Denies constipation, Denies heartburn, Denies diarrhea, Denies nausea and Denies vomiting Denies difficulty urinating and Denies urinary frequency Musc Denies back pain, Denies muscle weakness and Denies numbness Skin/Breast Denies changing lesions and Denies unusual bruising Neuro Denies headache(s), Denies numbness, Denies paresthesias and Denies weakness Psych Denies anxiety and Denies depression Endo Denies palpitations Ty/Lymph Denies lymphadenopathy Physical Exam Vital Signs: Last Vital Signs Pulse 73 09/20/24 09:46 BP 123/68 09/20/24 09:46 BMI result Body Mass Index 34.8 Const General: cooperative and no acute distress Nutritional Appearance: well nourished Orientation/consciousness: patient oriented x3 Limitations: no limitations HEENT Head: Yes normocephalic and Yes atraumatic Ears: hearing grossly normal bilaterally Resp Effort & Inspection: normal respiratory effort, no audible wheezes, no cough and no respiratory distress Cardio Jugular venous distension: no JVD GI Inspection: Yes normal to inspection Palpation (GI): Soft to palpation, nontender, no guarding and No hepatosplenomegaly present Percussion: Yes normal to percussion Skin Other: Warm, dry, no rash Neuro General: patient oriented x3 Extrem General: Yes no clubbing, cyanosis or edema Assessment & Plan Assessment & Plan (1) Cholelithiases: Code(s): K80.20 - Calculus of gallbladder without cholecystitis without obstruction Category: Medical Qualifiers: Cholelithiasis location: gallbladder Cholecystitis presence: without cholecystitis Biliary obstruction: without biliary obstruction Qualified Code(s): K80.20 - Calculus of gallbladder without cholecystitis without obstruction (2) Renal stones: Code(s): N20.0 - Calculus of kidney Category: Medical Plan 59-year-old male patient presenting with complaints of bilateral flank pain with a long history of intestinal symptoms found on a recent CT to have evidence of a gallstone with calcification. No other evidence of cholecystitis was identified by CT. On exam the patient's abdomen is soft and nondistended with no tenderness. I recommended further evaluation of the patient's gallbladder with an ultrasound of the abdomen and recommended he return following the study to review the results and discuss treatment options. He is breast understanding a nd agrees with the plan. Orders: Orders US abdomen complete Today K80.20 - Calculus of gallbladder without cholecystitis without obstruction, N20.0 - Calculus of kidney Coding Level of Care Code New Pt Level 4 (37265) Diagnoses Calculus of gallbladder without cholecystitis without obstruction K80.20 Cholelithiasis location: gallbladder Cholecystitis presence: without cholecystitis Biliary obstruction: without biliary obstruction Renal stones N20.0
[2024-09-20 09:46] VITALS: BP 123/68; PULSE 73; BMI 34.8
--- OUTSIDE RECORDS SUMMARY | 2024-09-20 10:00 | XMS_ITS | Continuity of Care Document ---
Author Organization [facility] Address [address] [place] [address] Problems Condition ICD9 code ICD10 code SNOMED code Start Date End Date S tatus Encounter for screening for other metabolic disorders Z13.228 Results No Results Allergies, adverse reactions, alerts No known allergies and adverse reactions Medications No administered medications reported Vital Signs No vital signs reported Social History No smoking Hx information available
--- OUTSIDE RECORDS SUMMARY | 2024-09-20 10:00 | XMS_ITS | Continuity of Care Document ---
Author Organization [facility] Address [address] [place] [id number] Problems Condition ICD9 code ICD10 code SNOMED code Start Date End Date S tatus Encounter for screening for other metabolic disorders Z13.228 Results No Results Allergies, adverse reactions, alerts No known allergies and adverse reactions Medications No administered medications reported Vital Signs No vital signs reported Social History No smoking Hx information available
== END 2024-09-20 10:14 | disposition home or self-care (01) ==
LOC: HO.HGS 09:32
PROVIDERS: PCP Physician Assistant; Visit Provider Surgery
DX: K80.20 Calculus of gallbladder without cholecystitis without obstruction (principal); N20.0 Calculus of kidney
CPT/HCPCS: 99204

== ENCOUNTER 2024-09-21 10:54 | Outpatient (REF) | payer OTHER, SELFPAY ==
--- NOTE | ~2024-09-21 | MM_ITS ---
EXAMINATION: DXA BONE DENSITY AXIAL HISTORY: M81.0 - Age-related osteoporosis without current pathological fracture TECHNIQUE: Sociall Dual energy absorptiometry (DEXA) of the lumbar spine, total left hip, and femoral neck was performed. COMPARISON: There are no prior studies for comparison. FINDINGS: The bone mineral density of the lumbar spine is 0.989 g/cm2, corresponding to a T-score of -1.9, and a Z-score of -2.3. This is indicative of osteopenia. The bone mineral density of the left total hip is 0.874 g/cm2, corresponding to a T-score of -1.6, and a Z-score of -1.6. This is indicative of osteopenia. The bone mineral density of the left femoral neck is 0.824 g/cm2, corresponding to a T-score of -1.9, and a Z-score of -1.5. This is indicative of osteopenia. FRACTURE RISK: The FRAX index suggests a risk of major osteoporotic fracture of 6.4%, and of hip fracture 0.9%. MM/XR DEXA axial skeleton IMPRESSION: Based on bone mineral density, and according to World Health Organization (WHO) criteria, the diagnosis is consistent with osteopenia. Statistically, 68% of repeat scans fall within 1 SD (+/- 0.010 g/cm2 for AP spine L1-L4) and 1 SD (+/- 0.012 g/cm2 for femur total) FRAX is a trademark of the [employer]'s [place] [facility] [employer] Disease, a World Health Organization (WHO) Collaborating Center. Electronically signed by: Uri Robertson MD 09/21/2024 11:42 AM EDT
== END 2024-09-21 10:55 | disposition home or self-care (01) ==
LOC: HO.MAMMO 10:54
PROVIDERS: PCP Physician Assistant; Visit Provider Physician Assistant
DX: M81.0 Age-related osteoporosis without current pathological fracture (principal)
CPT/HCPCS: 77080

== ENCOUNTER → 2024-09-21 11:00 | Outpatient (BNV) | payer OTHER, SELFPAY | PROVIDERS: PCP Physician Assistant; Visit Provider Radiology Diagnostic Radiology | DX: M81.0 Age-related osteoporosis without current pathological fracture (principal) | CPT/HCPCS: 77080 ==

== ENCOUNTER → 2024-09-22 09:26 | Outpatient (REF) | payer OTHER, SELFPAY ==
--- NOTE | ~2024-09-22 | NM_ITS ---
EXAMINATION: NM THYROID IMAGING AND UPTAKE CLINICAL INFORMATION: E04.2 - Nontoxic multinodular goiter COMPARISON: Correlation is made with a thyroid ultrasound dated 06/15/2024. TECHNIQUE: Following the oral administration of 288 microcuries of I-123 sodium iodide, thyroid uptake was performed and expressed as a percentage of the administrated dose. Gamma scintillation camera images of the thyroid in the anterior and right and left anterior oblique views were obtained using a pinhole collimator following the administration of 10.0 mCi Tc-99m pertechnetate. FINDINGS: There is the suggestion of mildly decreased uptake at the level lower pole of the left thyroid lobe, likely corresponding to the dominant nodule seen in this region on ultrasound. Activity is otherwise homogeneous. The uptake is 12.35% at 4 hours and 31.4% at 24 hours. NM/NM thyroid w uptake IMPRESSION: 1. Mildly decreased uptake at the lower pole of the left thyroid lobe, likely corresponding to the dominant nodule seen on prior ultrasound. 2. Normal thyroid uptake at 4 and 24 hours. Electronically signed by: Uri Robertson MD 09/23/2024 09:10 AM EDT
== END ==
LOC: HO.NUCMED 09:26
PROVIDERS: PCP Physician Assistant; Visit Provider Student in an Organized Health Care Education/Training Program
DX: E04.2 Nontoxic multinodular goiter (principal); E05.90 Thyrotoxicosis, unspecified without thyrotoxic crisis or storm
CPT/HCPCS: 78014; A9512; A9516

== ENCOUNTER → 2024-09-22 09:28 | Outpatient (BNV) | payer OTHER, SELFPAY | PROVIDERS: PCP Physician Assistant; Visit Provider Radiology Diagnostic Radiology | DX: E04.2 Nontoxic multinodular goiter (principal) | CPT/HCPCS: 78014 ==

== ENCOUNTER 2024-09-26 13:51 | Outpatient (AMB) | payer OTHER, SELFPAY ==
--- NOTE | 2024-09-26 13:52 | MHC.OFFVIS ---
Vital Signs 09/26/24 13:53 Height 5 ft 10 in Weight 243 lb 13.3 oz BMI 35.0 BP 122/60 Blood Pressure Location Rt brachial Position Sitting Pulse 62 Pulse Source Pulse Oximeter Pulse Oximetry (%) 95 Oxygen Delivery Method Room Air Intake Visit Reasons: Left adrenal gland nodule and thyroid Intake Note: Patient present today for Left adrenal gland nodule and thyroid office visit. Accompanied by: Self / Same As Patient Allergies amoxicillin Allergy (Intermediate, Verified 09/26/24 13:56) Abdominal Pain bee venom protein (honey bee) Allergy (Intermediate, Verified 09/26/24 13:56) Swelling droperidol (From Inapsine) Allergy (Intermediate, Verified 09/26/24 13:56) lock jaw prochlorperazine (From Compazine) Allergy (Intermediate, Verified 09/26/24 13:56) lock jaw shellfish derived Allergy (Intermediate, Verified 09/26/24 13:56) Hives Medication List - Last Reconciled 09/26/24 by Sana Fernandez MD albuterol sulfate 90 mcg/actuation 1 puff inhalation Q4-6H PRN aspirin 81 mg PO DAILY atorvastatin 20 mg PO DAILY budesonide-formoterol 160-4.5 mcg/actuation (Symbicort) 2 puffs inhalation BID PRN lisinopril 2.5 mg PO DAILY metoprolol succinate ER 50 mg PO DAILY tamsulosin 0.4 mg PO BID HPI Comments Details: 58-year-old male here today for follow up of subclinical hyperthyroidism, MNG. Also seeing him today for left adrenal nodule. HPI Labs from March 2024 03/25/2024 showed TSH low at 0.16, with free T4 of 1.28 normal, labs repeated 04/11/2024 showed TSH improved but still low at 0.20, free T4 1.21, labs repeated 05/12/2024 showed TSH again slightly improved but low at 0.22, with free T4 of 1.19. Thinks he has had it for the past 20 years. Never prescribed any thyroid medication. Patient currently denies heat or cold intolerance, Denies diarrhea or constipation, hair loss, palpitation, anxiety, weight changes, mood changes, changes in appearance of eyes or vision changes, tremors, increased diaphoresis or dry skin. ? Only low energy for the past week due to viral illness. Patient denies any difficulty swallowing, pain on swallowing or voice changes or difficulty breathing. Patient denies any history of childhood neck radiation. Denies having ever used lithium, amiodarone or biotin supplements. Patient denies any family history of thyroid cancer or thyroid disease. is adopted. 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 Ultrasound of the thyroid 06/15/2024, I reviewed the images myself which showed a subcentimeter solid, hypoechoic isthmus nodule, a right midpole subcentimeter cyst, another right midpole solid, hypoechoic TR 4 category nodule that is subcentimeter in size, a right superior pole mixed cystic solid subcentimeter nodule measuring 0.6 cm in the largest dimension which has some colloid in it, I left midpole subcentimeter mixed cystic solid nodule with a solid component that has some calcifications in a, however this is a well-defined nodule which is still subcentimeter size, I would categorize this is a TR 4 nodule, and 0.7 cm subcentimeter left midpole solid, hypoechoic, taller than wide, irregular margin nodule TR 5 category nodule (high suspicion), with the largest dominant left lower pole 2.2 cm nodule which is mixed cystic solid, hypoechoic/isoechoic, with a apparently questionable punctate echogenic foci, however I do not see this on landing just myself. I would categorize this has a TR 3 nodule instead of a TR 5. Interval history 07/11/2024: TSH 0.31, free T4 normal at 1.15, total T3 normal at 109, undetectable TSI, TPO and TSH receptor antibodies 09/22/2024: Thyroid uptake and scan showed mildly increased uptake at 24:00 hours at around 31%. Overall diffuse uptake, however cold spot in the left lower lobe. This is consistent with a 2.2 cm left dominant lower lobe nodule noted on ultrasound previously Left adrenal gland nodule 07/19/24 Ct abd done for abd pain showed left 2.2 cm adrenal gland nodule , 63 post contrast HU . Symptoms: Pt denies any weight gain ( over the years it has increased slowly but recently over 2024, lost 5 lbs with diet and exercise), -no ,severe acne ,headaches - denies any hx of proximal muscle weakness, easy bruisability ,no abdominal striae,no headache,diaphoresis -No high blood pressure. -Denies any polyuria or polydipsia,no history of glucose intolerance,no abdominal pain ,skin infection or hyperpigmentation. no recent vertebra or fragility fracture -No,facial plethora or recent mood change. No hx of depression. - no episodic palpitaions, pallor, abdominal pain, diaphoresis . -no loss of libido, no erectile dysfunction Osteopenia CT abdomen in July 2024 also pointed towards osteopenia/osteoporosis of the lumbar spine DEXA scan July 2024Showed osteopenia of the lumbar spine with T-score of-1.9, osteopenia of the hip with T-score of-1.6 at the left total hip,-1.9 at the left femoral neck. FRAX score is not elevated to warrant treatment. Physical exam General: sitting comfortably in no acute distress HEENT: normocephalic/atraumatic, no lid lag Neck: supple, palpable 1 cm left-sided nodule Cardiac: normal heart sounds Pulm: normal breath sounds B/L, no added breath sounds Abd: not distended, no tenderness Extremities: no edema, no signs of myxedema, no tremors Laboratory Tests 03/25/24 04/11/24 05/12/24 10:45 09:30 10:15 TSH 0.16 L 0.20 L 0.22 L Free T4 1.28 1.21 1.19 EXAMINATION: US THYROID 06/15/24 HISTORY: E05.90 - Thyrotoxicosis, unspecified without thyrotoxic crisis or storm TECHNIQUE: Real-time grayscale ultrasound imaging was performed and images were reviewed. COMPARISON: There are no prior studies for comparison. FINDINGS: SIZE: The right thyroid lobe measures 5.2 x 2.7 x 2.3 cm. The left thyroid lobe measures 5.9 x 2.7 x 2.3 cm. The isthmus measures 7 mm. FLOW: Flow to the gland is normal. ECHOGENICITY: The echotexture of the gland is heterogeneous. NODULES: Multiple bilateral thyroid nodules are identified as described below: Nodule #: 1 Location: Isthmus measuring 4 x 4 x 7 mm Shape: Wider than tall (0 points) Margins: Smooth (0 points) Echotexture: Hypoechoic (2 points) Composition: Solid (2 points) Calcifications: None (0 points) Total points: 4 TIRADS: TR4: Moderately suspicious. Nodule #: 2 Location: Upper pole of the right thyroid lobe measuring 6 x 4 x 4 mm Shape: Wider than tall (0 points) Margins: Smooth (0 points) Echotexture: Very hypoechoic (3 points) Composition: Mixed (1 point) Calcifications: None (0 points) Total points: 4 TIRADS: TR4: Moderately suspicious. Nodule #: 3 Location: Midportion of the left thyroid lobe measuring 9 x 8 x 9 mm Shape: Round (0 points) Margins: Smooth (0 points) Echotexture: Very hypoechoic (3 points) Composition: Mixed (1 point) Calcifications: Macrocalcifications (1 point) Total points: 5 TIRADS: TR4: Moderately suspicious. Nodule #: 4 Location: Midportion of the left thyroid lobe measuring 6 x 7 x 5 mm Shape: Taller than wide (3 points) Margins: Smooth (0 points) Echotexture: Very hypoechoic (3 points) Composition: Mixed (1 point) Calcifications: None (0 points) Total points: 7 TIRADS: TR5: Highly suspicious. Nodule #: 5 Location: Lower pole of the left thyroid lobe measuring 2.2 x 1.4 x 2.0 cm. Shape: Wider than tall (0 points) Margins: Smooth (0 points) Echotexture: Hypoechoic (2 points) Composition: Mostly solid (2 points) Calcifications: Punctate calcifications (3 points) Total points: 7 TIRADS: TR5: Highly suspicious. US/US thyroid IMPRESSION: Multiple bilateral thyroid nodules as described. Ultrasound-guided fine-needle aspiration of the most suspicious nodules at the mid and lower pole of the left thyroid lobe (nodules #4 and 5) is recommended. CT ABDOMEN AND PELVIS WITH CONTRAST 07/19/24 CLINICAL INFORMATION: [Lower abdominal pain. COMPARISON: None available. TECHNIQUE: Multidetector volumetric images were obtained from the superior aspect of the liver through the pubic symphysis following administration 85 mL of Omnipaque 350 intravenous contrast. Sagittal and coronal reformatted images were obtained on the technologist's workstation. Oral contrast: Yes This CT examination was performed using dose optimization techniques as appropriate, variously including the following: *Automated exposure control *Adjustment of mA and/or kV according to patient size (this includes techniques or standardized protocols for targeted exams where dose is matched to indication/reason for exam; i.e. extremities or head) *Use of iterative reconstruction technique. DLP: 688 mGy centimeter. FINDINGS: LUNG BASES: No acute airspace disease. LIVER, GALLBLADDER, AND BILIARY TREE: Liver measures 14 cm. No focal lesion. The portal veins and intrahepatic portion of the IVC are patent. No intrahepatic biliary ductal dilatation. Punctate calcifications in the dependent portion of the gallbladder lumen. No pericholecystic fluid collection or gallbladder wall thickening. No extrahepatic biliary ductal dilatation. PANCREAS: No focal lesion. No main pancreatic ductal dilatation. Punctate calcifications in the head of the pancreas. No peripancreatic fluid collections. SPLEEN: 10 cm. No focal lesion. ADRENAL GLANDS: There is a 2.2 cm nodular lesion in the left adrenal gland which measures 63 Hounsfield units at the portal venous phase. No nodular lesions, right adrenal gland. KIDNEYS AND URETERS: Renal cortical defect/prior surgical procedure involving the upper mid portion of the left kidney. Punctate calcifications in the corticomedullary junction left kidney. No hydronephrosis in the right kidney. No gross renal mass. There is a 1 cm exophytic cystic lesion in the anterior midportion of the left kidney. There is a 0.6 cm exophytic cyst in the posterior upper pole left kidney.. BLADDER: Fluid-filled. GASTROINTESTINAL TRACT: No intestinal obstruction pattern. Appendix is normal. No pneumatosis intestinalis. No intestinal wall thickening. No ascites. No pneumoperitoneum Hiatal hernia, small to moderate size.. ABDOMINAL WALL: Diastases abdominal rectus muscles in the periumbilical region. LYMPH NODES: Nonspecific prominent lymph nodes in the retroperitoneum VASCULAR: There is a focal 4.5 cm crescent-shaped calcification in the cardiac apex. Calcified plaques in the aorta and iliac arteries without aneurysm or dissection. Calcified plaques in the splenic artery. PELVIC VISCERA: Calcifications at the seminal vesicles. Prostate gland is not enlarged versus prior procedure. OSSEOUS STRUCTURES: Multilevel thoracic and lumbar spondylosis more conspicuous at L5-S1. Osteopenia versus osteoporosis. No gross lytic or blastic lesions. No acute fracture or gross listhesis. CT/CT abdomen pelvis w IV con IMPRESSION: Probable nonobstructing nephrolithiasis left kidney. Prior surgical procedure left kidney. Exophytic cystic lesions, left kidney. Cholelithiasis. Focal crescent-shaped calculation the cardiac apex suggesting calcified pseudoaneurysm versus akinetic/prior infarct. 2.2 cm nodule, left adrenal gland. Hiatal hernia. Fleischner guidelines were followed. EXAMINATION: NM THYROID IMAGING AND UPTAKE 09/22/24 CLINICAL INFORMATION: E04.2 - Nontoxic multinodular goiter COMPARISON: Correlation is made with a thyroid ultrasound dated 06/15/2024. TECHNIQUE: Following the oral administration of 288 microcuries of I-123 sodium iodide, thyroid uptake was performed and expressed as a percentage of the administrated dose. Gamma scintillation camera images of the thyroid in the anterior and right and left anterior oblique views were obtained using a pinhole collimator following the administration of 10.0 mCi Tc-99m pertechnetate. FINDINGS: There is the suggestion of mildly decreased uptake at the level lower pole of the left thyroid lobe, likely corresponding to the dominant nodule seen in this region on ultrasound. Activity is otherwise homogeneous. The uptake is 12.35% at 4 hours and 31.4% at 24 hours. NM/NM thyroid w uptake IMPRESSION: 1. Mildly decreased uptake at the lower pole of the left thyroid lobe, likely corresponding to the dominant nodule seen on prior ultrasound. 2. Normal thyroid uptake at 4 and 24 hours. Electronically signed by: Uri Robertson MD 09/23/2024 09:10 AM EDT EXAMINATION: DXA BONE DENSITY AXIAL 09/21/24 HISTORY: M81.0 - Age-related osteoporosis without current pathological fracture TECHNIQUE: [employer] Dual energy absorptiometry (DEXA) of the lumbar spine, total left hip, and femoral neck was performed. COMPARISON: There are no prior studies for comparison. FINDINGS: The bone mineral density of the lumbar spine is 0.989 g/cm2, corresponding to a T-score of -1.9, and a Z-score of -2.3. This is indicative of osteopenia. The bone mineral density of the left total hip is 0.874 g/cm2, corresponding to a T-score of -1.6, and a Z-score of -1.6. This is indicative of osteopenia. The bone mineral density of the left femoral neck is 0.824 g/cm2, corresponding to a T-score of -1.9, and a Z-score of -1.5. This is indicative of osteopenia. FRACTURE RISK: The FRAX index suggests a risk of major osteoporotic fracture of 6.4%, and of hip fracture 0.9%. MM/XR DEXA axial skeleton IMPRESSION: Based on bone mineral density, and according to World Health Organization (WHO) criteria, the diagnosis is consistent with osteopenia. [facility] Medical History (Updated 09/26/24 @ 14:47 by Sana Fernandez MD) Osteopenia Multiple thyroid nodules Subclinical hyperthyroidism Asthma Plantar fasciitis Past heart attack High cholesterol Social History Housing: House Alcohol intake: current Patient Tobacco Use Status: Former Tobacco user Cigarette Packs Per Day: 2.5 Years Smoked: 12 e-Cigarette/Vaping Use: Never Used Second Hand Smoke Exposure: No Substance Use Type: Marijuana service: Yes Current occupational status: retired Current occupational exposures/hazards: No Cognitive needs: No Hearing needs: No Vision needs: No Physical Exam Vital Signs: BMI result Body Mass Index 35.0 Assessment & Plan Assessment & Plan (1) Subclinical hyperthyroidism: Code(s): E05.90 - Thyrotoxicosis, unspecified without thyrotoxic crisis or storm Category: Medical Plan: 58-year-old male with a history of subclinical hyperthyroidism who is coming in today to establish care. Apparently was diagnosed some 20 years ago and has had low TSH levels. Labs from March 2024 03/25/2024 showed TSH low at 0.16, with free T4 of 1.28 normal, labs repeated 04/11/2024 showed TSH improved but still low at 0.20, free T4 1.21, labs repeated 05/12/2024 showed TSH again slightly improved but low at 0.22, with free T4 of 1.19. Given that he is seeing his TSH has been low for many years, unlikely this is because of thyroiditis. No prior contrast exposure. He has a history of heart disease with an IA, hence could possibly consider treatment in his case. Otherwise he is less than 65 years of age and TSH levels are greater than 0.1, and no history of osteoporosis. Ultrasound of the thyroid 06/15/2024, I reviewed the images myself which showed a subcentimeter solid, hypoechoic isthmus nodule, a right midpole subcentimeter cyst, another right midpole solid, hypoechoic TR 4 category nodule that is subcentimeter in size, a right superior pole mixed cystic solid subcentimeter nodule measuring 0.6 cm in the largest dimension which has some colloid in it, I left midpole subcentimeter mixed cystic solid nodule with a solid component that has some calcifications in a, however this is a well-defined nodule which is still subcentimeter size, I would categorize this is a TR 4 nodule, and 0.7 cm subcentimeter left midpole solid, hypoechoic, taller than wide, irregular margin nodule TR 5 category nodule (high suspicion), with the largest dominant left lower pole 2.2 cm nodule which is mixed cystic solid, hypoechoic/isoechoic, with a apparently questionable punctate echogenic foci, however I do not see this on landing just myself. I would categorize this has a TR 3 nodule instead of a TR 5. 07/11/2024: TSH 0.31, free T4 normal at 1.15, total T3 normal at 109, undetectable TSI, TPO and TSH receptor antibodies 09/22/2024: Thyroid uptake and scan showed mildly increased uptake at 24:00 hours at around 31%. Overall diffuse uptake, however cold spot in the left lower lobe. This is consistent with a 2.2 cm left dominant lower lobe nodule noted on ultrasound previously I explained that it is common to have thyroid nodules. About 95% of the time these nodules are benign. However if the nodule is > 1 cm in size or suspicious on ultrasound then a fine need aspiration biopsy is recommended. We discussed that a FNAB involves 4-5 passes with a small gauge needle and material obtained is sent off for cytology.If the cytopathology is benign then the nodule will be followed annually with repeat ultrasounds. However if it is suspicious or malignant, we will need to discuss further management. Indeterminate cytology can be further investigated with repeat FNA, genetic testing or empiric lobectomy. Malignant cytology is managed with either lobectomy or total thyroidectomy. We discussed briefly that thyroid cancer is, in most patients, an indolent disease that does not affect mortality. We will arrange for FNA of the left inferior 2.2 cm thyroid nodule at next available opening and patient will follow up with me in clinic thereafter for results and further decision making. Plan: -scheduled for FNA of the left inferior 2.2 cm thyroid nodule and a follow up 2 weeks after to discuss results (2) Multiple thyroid nodules: Code(s): E04.2 - Nontoxic multinodular goiter Category: Medical Plan: See above (3) Adrenal nodule: Code(s): E27.9 - Disorder of adrenal gland, unspecified Category: Medical Plan: 59-year-old male also found to have left adrenal gland 2.[address] abdomen done for abdominal pain in July 2024. It said it was 63 Hounsfield unit on postcontrast but we will need percentage washouts and precontrast Hounsfield units as well. We will order CT adrenal. Our first concern is to be sure that this is not an adrenal cortical carcinoma. ?Fortunately adrenal cortical carcinomas are exceedingly rare. ?However they do carry with them a very poor prognosis.?Given his clinical history with no deterioration in overall health; I have low suspicion for adrenocortical carcinoma to start with. ?Our next step will be to repeat the imaging of his adrenal gland with?adrenal washout protocol to comment on Hounsfield units and washout. ?? Another concern of adrenal masses is that they might be metastatic disease from another primary malignancy. ?This seems unlikely in his case. ?He does have a history of smoking. A renal cancer which can metastasize to the adrenal glands probably would have been identified on his initial imaging study. ?Usually metastatic disease to the adrenal glands goes to both adrenal glands. ? ? Most adrenal masses are noncancerous or benign adrenal adenomas. ?However they can occasionally be functional and the hormones that are produced can cause clinical problems.??He has not been screened for any hormonal excess; although low clinical suspicion for pheochromocytoma; given the adrenal adenoma in question is greater than 1 cm ; I will err on the side of caution and screen with plasma free metanephrines with his blood work today. ? He does not have hypertension or history of hypokalemia but I will check aldosterone and plasma renin activity testing . ? We will check a 1 mg overnight dexamethasone suppression test .?However he has no clinical features of Miranda syndrome. ? The greatest likelihood is that this will be a nonfunctional benign adrenal adenoma that does not need to be removed. ?However we want to be careful that we have excluded all the other possibilities?first.? Plan: -ordered CT of the adrenal gland -ordered dexamethasone suppression test -ordered ACTH, cortisol, DHEA-S, aldosterone, renin, BMP, plasma metanephrine and normetanephrine levels -follow up in 5-6 weeks to discuss results along with biopsies follow up (4) Osteopenia: Code(s): M85.80 - Other specified disorders of bone density and structure, unspecified site Category: Medical Qualifiers: Osteopenia location: multiple sites Qualified Code(s): M85.89 - Other specified disorders of bone density and structure, multiple sites Plan: CT abdomen in July 2024 also pointed towards osteopenia/osteoporosis of the lumbar spine DEXA scan July 2024Showed osteopenia of the lumbar spine with T-score of-1.9, osteopenia of the hip with T-score of-1.6 at the left total hip,-1.9 at the left femoral neck. FRAX score is not elevated to warrant treatment. At this time PCP can continue to manage this by keeping an eye on bone density every 2-3 years. I informed the patient of this. We will forward my note to PCP. He should also optimize his vitamin-D and calcium intake. Advised to take 1000 units of vitamin-D daily. His PCP can check his vitamin-D levels in optimize them to maintain them between 30-60. Asked him to incorporate 2-3 servings of calcium rich foods daily. Discussed role of weight-bearing exercise for good bone health. If anything his subclinical hyperthyroidism could be contributing to his bone loss, we can consider treatment in the near future once we have completed all the workup with a thyroid nodule biopsy. Plan I spent 45 minutes in reviewing the record, seeing the patient and documenting in the medical record. Orders: Orders Basic Metabolic Panel Today E27.9 - Disorder of adrenal gland, unspecified Cortisol Random Today E27.9 - Disorder of adrenal gland, unspecified DHEA Sulfate Today E27.9 - Disorder of adrenal gland, unspecified Metanephrines, Plasma Today E27.9 - Disorder of adrenal gland, unspecified Dexamethasone 10/03/24 E27.9 - Disorder of adrenal gland, unspecified US biopsy thyroid Today E04.2 - Nontoxic multinodular goiter Adrenocorticotropic Hormone Today E27.9 - Disorder of adrenal gland, unspecified Aldosterone Today E27.9 - Disorder of adrenal gland, unspecified Renin Today E27.9 - Disorder of adrenal gland, unspecified CT adrenal wo/w IV con Today E27.9 - Disorder of adrenal gland, unspecified Adrenocorticotropic Hormone 10/03/24 E27.9 - Disorder of adrenal gland, unspecified DHEA Sulfate 10/03/24 E27.9 - Disorder of adrenal gland, unspecified Medications: New dexamethasone Take at 11 pm at night and do blood work 8 AM next morning 1 mg PO DAILY 1 tab 0RF Patient Instructions: For you thyroid plan -we will book you for a biopsy of your left nodule, and a fup 2 weeks after to discuss results For bone health -take 1000 units of vitamin D daily you can buy any over the counter brand - 30 mins of walk 5 days a weeks - incorporate 2-3 servings of calcium rich foods daily - your PCP can check your vitamin D levels and optimize that For your adrenal gland nodule - Do Ct adrenal glands, someone will call you to schedule this - Do a set of blood work at 8 AM this week -Then later next week do another second set of blood work at 8 AM for the dexamethasone suppression test Dexamethasone suppression test I would like you to do a dexamethasone suppression test to rule out Cushings syndrome. You will take a 1 mg pill of dexamethasone at 11 PM and then have a blood draw for cortisol at 8AM the next morning. It is important to make sure you take the dexamethasone at 11 PM and have the blood test as close to 8AM as possible. Coding Level of Care Code Est Pt Level 5 (54998) Diagnoses Subclinical hyperthyroidism E05.90 Multiple thyroid nodules E04.2 Adrenal nodule E27.9 Osteopenia of multiple sites M85.89 Osteopenia location: multiple sites Time Spent (min) 45
[2024-09-26 13:53] VITALS: BP 122/60; PULSE 62; O2SAT 95; BMI 35.0
== END 2024-09-26 14:42 | disposition home or self-care (01) ==
LOC: HO.ENCR 13:51
PROVIDERS: PCP Physician Assistant; Visit Provider Student in an Organized Health Care Education/Training Program
DX: E05.90 Thyrotoxicosis, unspecified without thyrotoxic crisis or storm (principal); E04.2 Nontoxic multinodular goiter; E27.9 Disorder of adrenal gland, unspecified; M85.89 Other specified disorders of bone density and structure, multiple sites
CPT/HCPCS: 99215

== ENCOUNTER 2024-09-27 07:48 | Outpatient (REF) | payer OTHER, SELFPAY ==
[2024-09-27 09:22] LABS: Anion Gap 9 (12-20); Blood Urea Nitrogen 15 mg/dL (9-16); Calcium 9.0 mg/dL (8.4-10.2); Carbon Dioxide 29 mmol/L (22-29); Chloride 108 mmol/L (96-108); Estimated Glomerular Filt Rate > 60; Potassium 4.0 mmol/L (3.3-5.1); Sodium 142 mmol/L (135-145)
[2024-09-27 17:40] LABS: Protein/Creatinine Ratio, Ur 0.29 (<0.2); Total Protein Urine Random 16 mg/dL (<12)
[2024-10-01 07:39] LABS: Metanephrine, Free 45 pg/mL (<=57); Normetanephrines, Free 58 pg/mL (<=148); Total Metanephrine, Free 103 pg/mL (<=205)
== END 2024-09-27 07:49 | disposition home or self-care (01) ==
LOC: HO.LAB 07:48
PROVIDERS: Absent Provider Student in an Organized Health Care Education/Training Program; PCP Physician Assistant; Visit Provider Internal Medicine Nephrology
DX: R80.8 Other proteinuria (principal); I10 Essential (primary) hypertension; E27.9 Disorder of adrenal gland, unspecified
CPT/HCPCS: 36415; 80048; 80299; 82024; 82088; 82533; 82570; 82627; 83835; 84156; 84244

== ENCOUNTER 2024-09-29 10:09 | Outpatient (AMB) | payer OTHER, SELFPAY ==
--- NOTE | 2024-09-29 10:14 | A.OFFPC_ITS ---
Vital Signs 09/29/24 10:15 Height 5 ft 10 in Weight 244 lb 2 oz BMI 35.0 BP 122/62 Blood Pressure Location Lt brachial Position Sitting Respiration 16 Pulse 68 Pulse Source Pulse Oximeter Pulse Oximetry (%) 94 Oxygen Delivery Method Room Air Intake Visit Reasons: labs and bp Intake Note: Labs and blood pressure follow up. Interactive Media Marketing Specialist Required: No Allergies amoxicillin Allergy (Intermediate, Verified 09/29/24 10:14) Abdominal Pain bee venom protein (honey bee) Allergy (Intermediate, Verified 09/29/24 10:14) Swelling droperidol (From Inapsine) Allergy (Intermediate, Verified 09/29/24 10:14) lock jaw prochlorperazine (From Compazine) Allergy (Intermediate, Verified 09/29/24 1 0:14) lock jaw shellfish derived Allergy (Intermediate, Verified 09/29/24 10:14) Hives Medication List - Last Reconciled 09/29/24 by Jodie Husain PA-C albuterol sulfate 90 mcg/actuation 1 puff inhalation Q4-6H PRN aspirin 81 mg PO DAILY atorvastatin 20 mg PO DAILY budesonide-formoterol 160-4.5 mcg/actuation (Symbicort) 2 puffs inhalation BID PRN dexamethasone 1 mg PO DAILY lisinopril 2.5 mg PO DAILY metoprolol succinate ER 50 mg PO DAILY tamsulosin 0.4 mg PO BID Tobacco use date assessed: 09/29/24 Dental Screening Dental Screen Date: 03/23/24 HPI labs and bp HPI Details Patient is a 59-year-old male with a significant past medical history of hypertension, hyperlipidemia, diastolic dysfunction, hypothyroidism, varicose veins presenting today for a follow up. Pulm: He is following with Dr. Muniz for asthma CV: He is currently on metoprolol 50 mg daily, aspirin and atorvastatin [address] Rust for his heart failure and states he just saw him. No cp, sob. Has follow up next March 2025. GI: He still gets right sided abdominal pain after eating. He states it is not as frequent and did see General surgery and they recommended an ultrasound. He states some of the lower pain is gone but also still intermittently present. MSK: He states in addition to the abdominal pain he is still getting some low b ack pain and bilateral hip pain at different points. He states it is ?where the love handles are ?. He states it is a soreness that feels too low to be the kidneys in more related to just the muscles. It is worse if he lays on his sides at night. Nephro: Following with Nephrology for microalbuminuria Uro: Was recently noted on CT to have renal cysts and stones. Following with urology. Endo: Still has the adrenal test pending. Scheduled for FNA for thyroid. Bone density was noted to be osteopenia. Derm: follows with [facility] but dissatisfied. Would like to see a different antolin matologist. No acute concerns, goes for routine checks. Ophthamology: follows with eye and lasik. [facility] Medical History (Updated 09/29/24 @ 10:29 by Jodie Husain PA-C) Osteopenia Multiple thyroid nodules Subclinical hyperthyroidism Asthma Plantar fasciitis Past heart attack High cholesterol Social History Housing: House Alcohol intake: current Patient Tobacco Use Status: Former Tobacco user Cigarette Packs Per Day: 2.5 Years Smoked: 12 e-Cigarette/Vaping Use: Never Used Second Hand Smoke Exposure: No Substance Use Type: Marijuana service: Yes Current occupational status: retired Current occupational exposures/hazards: No Cognitive needs: No Hearing needs: No Vision needs: No Questionnaire Thrive Questionnaire Date Thrive assessed: 03/23/24 I am a: Patient What is your living situation today?: I have a steady place to live Within the past 12 months, did the food you bought not last and you didn't have the money to get more?: Never true Within the past 12 months, did you worry whether your food would run out before you got money to buy more?: Never true Do you have trouble paying for medicines?: I choose not to answer this question Do you have trouble getting transportation to medical appointments?: No Do you have trouble paying your heating and electricity bill?: No Do you have trouble taking care of your child, family member or friend?: No Do you have trouble with day-to-day activities such as bathing, preparing meals, shopping, managing finances, etc.?: No Are you currently unemployed and looking for a job?: No Are you interested in more education?: No Please select the resources that you would like help with: None Currently or been in a relationship where the following occur: No concerns reported THRIVE Score: 0 AUDIT C Alcohol Use Questionnaire (AUDIT-C) 1. How often do you have a drink containing alcohol?: 2-3 times a week 2. How many drinks containing alcohol do you have on a typical day when you are drinking?: 1 or 2 3. How often do you have six or more drinks on one occasion?: Never Total Score: 3 Physical exam (Primary Care) Vital Signs: Last Vital Signs Pulse 68 09/29/24 10:15 Resp 16 09/29/24 10:15 BP 122/62 09/29/24 10:15 Pulse Ox 94 09/29/24 10:15 Oxygen Delivery Method Room Air 09/29/24 10:15 BMI result Body Mass Index 35.0 Tobacco/Smoking Status: Tobacco use Status Tobacco use date assessed 09/29/24 09/29/24 10:18 Patient Tobacco Use Status Former Tobacco user 09/29/24 10:18 e-Cigarette/Vaping Use Never Used 09/29/24 10:18 Thrive Assessment: Date of Thrive Assessment Date Thrive assessed 03/23/24 09/29/24 10:18 Currently or been in a relationship where the following occur: No concerns reported Const Orientation/consciousness: patient oriented x3 HENMT Ears: hearing grossly normal bilaterally Neck Thyroid: Thyroid normal Lymphatic: no lymphadenopathy noted Resp Auscultation: clear to auscultation bilaterally Cardio Rate: regular rate Rhythm: regular rhythm Heart sounds: S1 normal heart sound present and S2 normal heart sound present GI Inspection: Yes normal to inspection Palpation (GI): Soft to palpation and Other GI palpation findings present (nontender, no cva tenderness) Auscultation: normoactive bowel sounds Rectal Exam - Male: Yes deferred Skin General skin exam: no rashes or lesions noted Neuro General: patient oriented x3, gait normal and no focal motor deficits Results Reviewed Results Reviewed: Laboratory Tests 05/12/24 09/27/24 09/27/24 10:15 07:58 08:07 WBC 7.6 RBC 5.15 Hgb 15.5 Hct 48.3 Plt Count 153 L Sodium 142 Potassium 4.0 Chloride 108 Carbon Dioxide 29 Anion Gap 9 L BUN 15 Creatinine 0.69 Estimated GFR > 60 Random Glucose 106 Calcium 9.0 D U Random Total Protein 16 H Urine Creatinine 55.01 Protein/Creatinin Ratio 0.29 H FINDINGS: LUNG BASES: No acute airspace disease. LIVER, GALLBLADDER, AND BILIARY TREE: Liver measures 14 cm. No focal lesion. The portal veins and intrahepatic portion of the IVC are patent. No intrahepatic biliary ductal dilatation. Punctate calcifications in the dependent portion of the gallbladder lumen. No pericholecystic fluid collection or gallbladder wall thickening. No extrahepatic biliary ductal dilatation. PANCREAS: No focal lesion. No main pancreatic ductal dilatation. Punctate calcifications in the head of the pancreas. No peripancreatic fluid collections. SPLEEN: 10 cm. No focal lesion. ADRENAL GLANDS: There is a 2.2 cm nodular lesion in the left adrenal gland which measures 63 Hounsfield units at the portal venous phase. No nodular lesions, right adrenal gland. KIDNEYS AND URETERS: Renal cortical defect/prior surgical procedure involving the upper mid portion of the left kidney. Punctate calcifications in the corticomedullary junction left kidney. No hydronephrosis in the right kidney. No gross renal mass. There is a 1 cm exophytic cystic lesion in the anterior midportion of the left kidney. There is a 0.6 cm exophytic cyst in the posterior upper pole left kidney.. BLADDER: Fluid-filled. GASTROINTESTINAL TRACT: No intestinal obstruction pattern. Appendix is normal. No pneumatosis intestinalis. No intestinal wall thickening. No ascites. No pneumoperitoneum Hiatal hernia, small to moderate size.. ABDOMINAL WALL: Diastases abdominal rectus muscles in the periumbilical region. LYMPH NODES: Nonspecific prominent lymph nodes in the retroperitoneum VASCULAR: There is a focal 4.5 cm crescent-shaped calcification in the cardiac apex. Calcified plaques in the aorta and iliac arteries without aneurysm or dissection. Calcified plaques in the splenic artery. PELVIC VISCERA: Calcifications at the seminal vesicles. Prostate gland is not enlarged versus prior procedure. OSSEOUS STRUCTURES: Multilevel thoracic and lumbar spondylosis more conspicuous at L5-S1. Osteopenia versus osteoporosis. No gross lytic or blastic lesions. No acute fracture or gross listhesis. CT/CT abdomen pelvis w IV con IMPRESSION: Probable nonobstructing nephrolithiasis left kidney. Prior surgical procedure left kidney. Exophytic cystic lesions, left kidney. Cholelithiasis. Focal crescent-shaped calculation the cardiac apex suggesting calcified pseudoaneurysm versus akinetic/prior infarct. 2.2 cm nodule, left adrenal gland. Hiatal hernia. . Coding Level of Care Code Est Pt Level 4 (78572) Complex EM visit Add On G2211 Diagnoses Multiple thyroid nodules E04.2 Adrenal nodule E27.9 Primary hypertension I10 Hypertension type: primary hypertension Calculus of gallbladder without cholecystitis without obstruction K80.20 Biliary obstruction: without biliary obstruction Cholecystitis presence: without cholecystitis Cholelithiasis location: gallbladder Other proteinuria R80.8 Proteinuria type: other LLQ abdominal pain R10.32 Lumbar pain M54.50 Bilateral hip pain M25.551; M25.552 Assessment & Plan Assessment & Plan (1) Multiple thyroid nodules: Code(s): E04.2 - Nontoxic multinodular goiter Category: Medical Plan: Scheduled for FNA (2) Adrenal nodule: Code(s): E27.9 - Disorder of adrenal gland, unspecified Category: Medical Plan: Following with endocrinology (3) HTN (hypertension): Code(s): I10 - Essential (primary) hypertension Category: Medical Qualifiers: Hypertension type: primary hypertension Qualified Code(s): I10 - Essential (primary) hypertension Plan: WNL. Continue current regimen (4) Cholelithiases: Code(s): K80.20 - Calculus of gallbladder without cholecystitis without obstruction Category: Medical Qualifiers: Biliary obstruction: without biliary obstruction Cholecystitis presenc e: without cholecystitis Cholelithiasis location: gallbladder Qualified Code(s): K80.20 - Calculus of gallbladder without cholecystitis without obstruction Plan: Less symptomatic. Following with General surgery. Has an ultrasound ordered (5) Proteinuria: Code(s): R80.9 - Proteinuria, unspecified Category: Medical Qualifiers: Proteinuria type: other Qualified Code(s): R80.8 - Other proteinuria Plan: Has follow up arranged with Nephrology (6) LLQ abdominal pain: Code(s): R10.32 - Left lower quadrant pain Category: Medical Plan: Referral to GI (7) Lumbar pain: Code(s): M54.50 - Low back pain, unspecified Category: Medical Plan: X-rays ordered (8) Bilateral hip pain: Code(s): M25.551 - Pain in right hip; M25.552 - Pain in left hip Category: Medical Plan: As above Orders: Orders XR lumbar spine 2-3V Today M54.50 - Low back pain, unspecified XR hips SUPA min 3V Today M25.551 - Pain in right hip, M25.552 - Pain in left hip Referrals Dermatology Referral D22.9 - Melanocytic nevi, unspecified Gastroenterology Referral R10.32 - Left lower quadrant pain Medications: New omeprazole 20 mg PO DAILY 30 caps 5RF
[2024-09-29 10:15] VITALS: BP 122/62; PULSE 68; RESP 16; O2SAT 94; BMI 35.0
== END 2024-09-29 10:39 | disposition home or self-care (01) ==
LOC: HO.HMCFM 10:10
PROVIDERS: PCP Physician Assistant; Visit Provider Physician Assistant
DX: E04.2 Nontoxic multinodular goiter (principal); E27.9 Disorder of adrenal gland, unspecified; I10 Essential (primary) hypertension; K80.20 Calculus of gallbladder without cholecystitis without obstruction; R80.8 Other proteinuria; R10.32 Left lower quadrant pain; M54.50 Low back pain, unspecified; M25.551 Pain in right hip; M25.552 Pain in left hip

== ENCOUNTER 2024-09-30 10:33 | Outpatient (AMB) | payer OTHER, SELFPAY ==
--- NOTE | 2024-09-30 11:06 | MHC.OFFVIS ---
Intake Visit Reasons: Kidney stones and kidney cysts Intake Note: New Patient is present for kidney stones Urology Rx: Tamsulosin Blood Thinners:Asprin Imaging completed: 07/19/24 Insulation Sprayer Required: No Accompanied by: Self / Same As Patient Allergies amoxicillin Allergy (Intermediate, Verified 09/30/24 11:06) Abdominal Pain bee venom protein (honey bee) Allergy (Intermediate, Verified 09/30/24 11:06) Swelling droperidol (From Inapsine) Allergy (Intermediate, Verified 09/30/24 11:06) lock jaw prochlorperazine (From Compazine) Allergy (Intermediate, Verified 09/30/24 11:06) lock jaw shellfish derived Allergy (Intermediate, Verified 09/30/24 11:06) Hives HPI Comments Details: Matthew is a pleasant male. He is a patient of Dr. Husain. He seen for the following urologic conditions - nephrolithiasis Prior history of dehydration events Discussed imaging findings Simple renal cyst needs no follow-up Stone seen on ultrasound are associated with scarring on left kidney Minimal issues P.r.n. follow-up Nephrolithiasis Imaging - CT 08/07 1 cm simple renal cyst, punctate renal stones, scarring on left kidney with calcification PFSH Medical History (Updated 09/29/24 @ 10:29 by Jodie Husain PA-C) Osteopenia Multiple thyroid nodules Subclinical hyperthyroidism Asthma Plantar fasciitis Past heart attack High cholesterol Social History Housing: House Alcohol intake: current Patient Tobacco Use Status: Former Tobacco user Cigarette Packs Per Day: 2.5 Years Smoked: 12 e-Cigarette/Vaping Use: Never Used Second Hand Smoke Exposure: No Substance Use Type: Marijuana service: Yes Current occupational status: retired Current occupational exposures/hazards: No Cognitive needs: No Hearing needs: No Vision needs: No Review of Systems Const Denies chills and Denies fever(s) Card Reports no additional complaints and Denies syncope Resp Denies cough GI Denies abdominal pain and Denies heartburn Reports as per HPI and Denies change in libido Neuro Denies syncope Psych Denies change in libido Endo Denies change in libido Physical Exam Const General: cooperative, healthy appearing, comfortable and no acute distress Orientation/consciousness: patient oriented x3 HEENT Face and sinus: Yes normal facial exam Mouth: moist mucous membranes Neck Neck: Yes normal visual inspection, Yes full ROM and Yes trachea midline Chest Chest palpation & inspection: normal inspection of the chest Resp Effort & Inspection: normal respiratory effort, able to speak in complete sentences and no respiratory distress GI Inspection: Yes normal to inspection Back/Spine/Pelvis Cervical Spine: normal cervical lordosis Thoracic/Lumbar Spine: thoracic and lumbar spine normal to inspection Skin General skin exam: no rashes or lesions noted Neuro General: patient oriented x3, gait normal, tone normal and moves all extremities Extrem General: Yes normal to inspection and Yes capillary refill normal Assessment & Plan Assessment & Plan (1) Renal stones: Code(s): N20.0 - Calculus of kidney Category: Medical Plan P.r.n. follow-up Patient Instructions: This note is constructed using voice recognition software. While every effort has been made to ensure accuracy marketing secretary errors may have been included. Imaging studies, laboratory and physical exam results were discussed and reviewed in detail. No major barriers to patient understanding were identified. An opportunity to ask questions regarding the treatment plan was provided. All questions were answered. The patient expressed understanding and agreement with the above treatment plan. The patient is aware they should contact our office by phone for worsening of their current condition or the appearance of new urologic symptoms. Compliance is encouraged with any medications and followup testing that is ordered. It is a privilege to participate in the urologic care of your patient. If you have any questions or concerns regarding treatment for the above conditions, or other urologic issues, please do not hesitate to contact me. The office telephone contact is [phone]. Sincerely, Dr Froy Aldana MD, [facility] - Urology Compassionate Specialist Care for the Genitourinary System Coding Level of Care Code New Pt Level 3 (83837) Diagnoses Renal stones N20.0
== END 2024-09-30 12:04 | disposition home or self-care (01) ==
LOC: HO.HUSH 10:34
PROVIDERS: PCP Physician Assistant; Visit Provider Urology
DX: Z13.9 Encounter for screening, unspecified (principal); N20.0 Calculus of kidney
CPT/HCPCS: 99203

== ENCOUNTER → 2024-09-30 10:33 | Outpatient (BNVA) | payer OTHER, SELFPAY | PROVIDERS: PCP Physician Assistant; Visit Provider Urology | DX: N20.0 Calculus of kidney (principal) | CPT/HCPCS: 51798; 81003 ==

== ENCOUNTER 2024-10-03 07:58 | Outpatient (REF) | payer OTHER, SELFPAY ==
--- NOTE | ~2024-10-03 | XR_ITS ---
CLINICAL HISTORY: M25.551 - Pain in right hip 5 view, pelvis and bilateral hips Comparison: None provided Findings: The bones are intact. Mild joint space loss bilaterally. There are arterial calcifications. IMPRESSION: No acute findings. This document has been electronically signed by: Leona Mariscal MD on 10/04/2024 15:20:03
--- NOTE | ~2024-10-03 | XR_ITS ---
CLINICAL HISTORY: M54.50 - Low back pain, unspecified 3 views lumbar spine Comparison: None provided Findings: Normal vertebral body alignment. There is a mild chronic appearing compression fracture at L1. There is no acute fracture. Moderate loss of intervertebral disc height and vacuum phenomenon present at L5-S1. Remaining intervertebral disc heights are preserved. There is facet osteoarthritis at L5-S1. IMPRESSION: 1. There are changes of degenerative disc disease and facet osteoarthritis at L5-S1. 2. Mild chronic appearing compression fracture at L1. This document has been electronically signed by: Leona Mariscal MD on 10/04/2024 15:18:46
== END 2024-10-03 07:59 | disposition home or self-care (01) ==
LOC: HO.XRAY 07:58
PROVIDERS: Absent Provider Physician Assistant; PCP Physician Assistant; Visit Provider Student in an Organized Health Care Education/Training Program
DX: E27.9 Disorder of adrenal gland, unspecified (principal); M54.50 Low back pain, unspecified; M25.551 Pain in right hip; M25.552 Pain in left hip
CPT/HCPCS: 36415; 72100; 73522; 80299; 82024; 82088; 82533; 82627

== ENCOUNTER → 2024-10-03 08:20 | Outpatient (BNV) | payer OTHER, SELFPAY | PROVIDERS: Absent Provider Physician Assistant; PCP Physician Assistant; Visit Provider Radiology Diagnostic Radiology | DX: M25.551 Pain in right hip (principal); M51.370 Other intervertebral disc degeneration, lumbosacral region with discogenic back pain only | CPT/HCPCS: 72100; 73522 ==

== ENCOUNTER 2024-10-04 10:08 | Outpatient (AMB) | payer OTHER, SELFPAY ==
--- NOTE | 2024-10-04 10:28 | HO.NEPHOV_ITS ---
Vital Signs 10/04/24 10:29 Height 5 ft 10 in Weight 245 lb BMI 35.2 BP 120/78 Blood Pressure Location Lt brachial Position Sitting Pulse 59 Pulse Source Pulse Oximeter Pulse Oximetry (%) 96 Oxygen Delivery Method Room Air Intake Visit Reasons: 3mon f/u w/labs-LVM Administrative Tech Required: No Accompanied by: Self / Same As Patient Allergies amoxicillin Allergy (Intermediate, Verified 10/04/24 10:29) Abdominal Pain bee venom protein (honey bee) Allergy (Intermediate, Verified 10/04/24 10:29) Swelling droperidol (From Inapsine) Allergy (Intermediate, Verified 10/04/24 10:29) lock jaw prochlorperazine (From Compazine) Allergy (Intermediate, Verified 10/04/24 10:29) lock jaw shellfish derived Allergy (Intermediate, Verified 10/04/24 10:29) Hives HPI Comments Details: I had the privilege of seeing Matthew in follow up for proteinuria. 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 He has no DM, CVA, CHF or PAD. He has BPH and is on tamsulosin. He has high BMI. He is not on ACEI or ARB. He denies hematuria, edema, sensori neural deafness, epistaxis, photosensitivity, skin rashes, new bone or back pain. His renal function has been normal. He denies taking excess NSAID's. [facility] Medical History (Updated 09/29/24 @ 10:29 by Jodie Husain PA-C) Osteopenia Multiple thyroid nodules Subclinical hyperthyroidism Asthma Plantar fasciitis Past heart attack High cholesterol Social History Housing: House Alcohol intake: current Patient Tobacco Use Status: Former Tobacco user Cigarette Packs Per Day: 2.5 Years Smoked: 12 e-Cigarette/Vaping Use: Never Used Second Hand Smoke Exposure: No Substance Use Type: Marijuana service: Yes Current occupational status: retired Current occupational exposures/hazards: No Cognitive needs: No Hearing needs: No Vision needs: No Review of Systems Const All systems reviewed & are unremarkable except as noted in HPI and below Physical Exam Vital Signs: Last Vital Signs Pulse 59 10/04/24 10:29 BP 120/78 10/04/24 10:29 Pulse Ox 96 10/04/24 10:29 Oxygen Delivery Method Room Air 10/04/24 10:29 BMI result Body Mass Index 35.2 Const General: comfortable and no acute distress Orientation/consciousness: patient oriented x3 HEENT Head: Yes normocephalic Mouth: Normal oral and palatal mucosa present Eyes EOM: EOMs intact bilaterally Neck Neck: Yes supple Resp Auscultation: clear to auscultation bilaterally Cardio Jugular venous distension: no JVD Rate: regular rate GI Palpation (GI): Soft to palpation Auscultation: normal bowel sounds General: Yes no CVA tenderness Back/Spine/Pelvis Back: no CVA tenderness Skin General skin exam: no rashes or lesions noted Neuro General: patient oriented x3 and moves all extremities Extrem General: Yes no pedal edema Results Reviewed Nephrology Results: Sodium, (135-145) 142 mmol/L 09/27/24 Potassium, (3.3-5.1) 4.0 mmol/L 09/27/24 Chloride, (96-108) 108 mmol/L 09/27/24 Carbon Dioxide, (22-29) 29 mmol/L 09/27/24 BUN, (9-16) 15 mg/dL 09/27/24 Creatinine, (0.5-1.4) 0.69 mg/dL 09/27/24 Calcium, (8.4-10.2) 9.0 mg/dL Δ 09/27/24 Urine Creatinine 55.01 mg/dL 09/27/24 Protein/Creatinin Ratio, (<0.2) 0.29 H 09/27/24 Assessment & Plan Assessment & Plan (1) HTN (hypertension): Code(s): I10 - Essential (primary) hypertension Category: Medical Qualifiers: Hypertension type: primary hypertension Qualified Code(s): I10 - Essential (primary) hypertension (2) Renal cyst, left: Code(s): N28.1 - Cyst of kidney, acquired Category: Medical (3) Proteinuria: Code(s): R80.9 - Proteinuria, unspecified Category: Medical Qualifiers: Proteinuria type: other Qualified Code(s): R80.8 - Other proteinuria Plan Matthew has a new diagnosis of proteinuria( likely from hypertension) Differential diagnosis is broad including secondary FSGS Not on ACEI/ARB; His last ECHO was reviewed 24 hour urine for protein reviewed Renal function normal; BP @ goal on metoprolol If he has worsening proteinuria, shall investigate further (will consider renal biopsy if needed based on evolving data) No H/O malignancy/ autoimmune disease/excess NSAID use No H/O HIV or hepatitis. Shall increase ACEI to 5 mg at night with time, if needed All questions answered. F/U given Orders: Orders Protein Creatinine Ratio, Ur 6 Months I10 - Essential (primary) hypertension, R80.8 - Other proteinuria Electrolytes 6 Months I10 - Essential (primary) hypertension, R80.8 - Other proteinuria Creatinine 6 Months I10 - Essential (primary) hypertension, R80.8 - Other proteinuria Blood Urea Nitrogen 6 Months I10 - Essential (primary) hypertension, R80.8 - Other proteinuria Coding Level of Care Code Est Pt Level 4 (80975) Diagnoses Primary hypertension I10 Hypertension type: primary hypertension Renal cyst, left N28.1 Other proteinuria R80.8 Proteinuria type: other
[2024-10-04 10:29] VITALS: BP 120/78; PULSE 59; O2SAT 96; BMI 35.2
== END 2024-10-04 10:43 | disposition home or self-care (01) ==
LOC: HO.HKAS 10:08
PROVIDERS: PCP Physician Assistant; Visit Provider Internal Medicine Nephrology
DX: I10 Essential (primary) hypertension (principal); N28.1 Cyst of kidney, acquired; R80.8 Other proteinuria
CPT/HCPCS: 99214

== ENCOUNTER 2024-10-19 08:43 | Outpatient (REF) | payer OTHER, SELFPAY ==
--- NOTE | 2024-10-19 09:24 | PCN2_ITS ---
Brief Operative Note Date of procedure: 10/19/24 Pre-op diagnosis: left lower 2.2 cm thyroid nodule FNA biopsy Post-op diagnosis: same Procedure: THYROID FINE NEEDLE ASPIRATION PROCEDURE NOTE ? PROCEDURE PERFORMED: Ultrasound-guided FNA of thyroid nodule ? OPERATORS: Dr. Sana Fernandez ? INDICATION: left lower 2.2 cm thyroid nodule ; FNA performed to assess for malignancy ? DESCRIPTION OF PROCEDURE: The indications for FNA (to assess for malignancy) were reviewed with the patient in detail. Potential complications (e.g., bleeding, infection, damage to local structures, absence of clear diagnosis after FNA) were reviewed. Alternatives to FNA including conservative observation or surgery were described. The patient understood and agreed to proceed. This was documented by the signing of the written informed consent form. A time-out was performed to confirm the patient's identity and the site of planned FNA. The nodule of interest was identified using ultrasound (14 MHz linear array probe). The site of FNA was then draped in the usual fashion and carefully cleaned and prepared using alcohol swabs. The skin at the previously-identified site of needle insertion was iced and sprayed with numbing spray. Under ultrasound guidance, _5_ passes were performed using a 1.5-inch, 22-gauge needle, and sample was obtained via capillary action. The needle tip was clearly visualized to be within the nodule at the time of sampling for __5 of _5 passes [Insert image recorded as part of the procedure] The patient tolerated the procedure well. There were no immediate complications. A small adhesive bandage was applied, and the patient was advised to take aceta minophen (rather than NSAIDs) for any discomfort and to report any signs of inflammation/infection or marked swelling. IMPRESSION: Technically successful ultrasound-guided fine needle aspiration of left lower 2.2 cm thyroid nodule . PLAN: The patient was advised that I will provide follow-up regarding the cytology result and any subsequent plans. Sana Fernandez MD Endocrinology Attending Condition: stable Disposition: same day
== END 2024-10-19 08:44 | disposition home or self-care (01) ==
LOC: HO.US 08:43
PROVIDERS: PCP Physician Assistant; Visit Provider Neurological Surgery
DX: E04.2 Nontoxic multinodular goiter (principal)
CPT/HCPCS: 10005; 88173; 88305

== ENCOUNTER → 2024-10-19 08:43 | Outpatient (BNV) | payer OTHER, SELFPAY | PROVIDERS: PCP Physician Assistant; Visit Provider Student in an Organized Health Care Education/Training Program | DX: E04.1 Nontoxic single thyroid nodule (principal) | CPT/HCPCS: 10005 ==

== ENCOUNTER 2024-10-20 08:53 | Outpatient (REF) | payer OTHER, SELFPAY ==
--- NOTE | ~2024-10-20 | US_ITS ---
CLINICAL HISTORY: K80.20 - Calculus of gallbladder without cholecystitis without obstruction --- Additional Notes or Special Instructions: History of bilateral flank pain, calcified stone in gallbladder, history of US abdomen complete Comparison: 07/19/2024 CT Findings: The visualized pancreas is normal. The aorta and inferior vena cava are normal caliber. Liver measures 17.7 cm in length and demonstrates normal echogenicity.. There is no intrahepatic bile duct dilatation. The common duct is 3 mm in diameter. A few small gallstones. There is no sonographic [place] sign. The right kidney is 10.8 cm in length. The left kidney is 13.2 cm in length. Midpolar left renal scarring. Two small (up to 5 mm) either parenchymal calcifications or nonobstructive stones at level of the midpole of the left kidney. Small number of bilateral simple renal cysts measuring up to 17 mm. No hydronephrosis. Spleen measures 13.2 cm in length. No ascites. IMPRESSION: Mild hepatosplenomegaly. A few tiny gallstones. Midpolar left renal scarring. Two small (up to 5 mm) either parenchymal calcifications or nonobstructive stones at level of the midpole of the left kidney. This document has been electronically signed by: Jessica Hurd MD on 10/20/2024 10:14:30
== END 2024-10-20 08:54 | disposition home or self-care (01) ==
LOC: HO.HMGCX 08:53
PROVIDERS: PCP Physician Assistant; Visit Provider Surgery
DX: K80.20 Calculus of gallbladder without cholecystitis without obstruction (principal); N20.0 Calculus of kidney
CPT/HCPCS: 76700

== ENCOUNTER → 2024-10-20 08:57 | Outpatient (BNV) | payer OTHER, SELFPAY | PROVIDERS: PCP Physician Assistant; Visit Provider Radiology Diagnostic Radiology | DX: K80.20 Calculus of gallbladder without cholecystitis without obstruction (principal) | CPT/HCPCS: 76700 ==

== ENCOUNTER 2024-11-02 13:39 | Outpatient (AMB) | payer OTHER, SELFPAY ==
[2024-11-02 13:45] VITALS: BP 114/72; PULSE 63; O2SAT 94; BMI 35.1
--- NOTE | 2024-11-02 13:45 | A.OFFVIS_ITS ---
Vital Signs 3 11/02/24 13:45 Height 5 ft 10 in Weight 244 lb 7.882 oz BMI 35.1 BP 114/72 Blood Pressure Location Lt brachial Position Sitting Pulse 63 Pulse Source Pulse Oximeter Pulse Oximetry (%) 94 Oxygen Delivery Method Room Air Intake Visit Reasons: Biopsy f/u & Left adrenal gland nodule Intake Note: Patient present today for biopsy results and left adrenal gland nodule follow up visit. Certified Hyperbaric Technician Required: No Accompanied by: se Allergies amoxicillin Allergy (Intermediate, Verified 11/02/24 13:48) Abdominal Pain bee venom protein (honey bee) Allergy (Intermediate, Verified 11/02/24 13:48) Swelling droperidol (From Inapsine) Allergy (Intermediate, Verified 11/02/24 13:48) lock jaw prochlorperazine (From Compazine) Allergy (Intermediate, Verified 11/02/24 13:48) lock jaw shellfish derived Allergy (Intermediate, Verified 11/02/24 13:48) Hives Medication List - Last Reconciled 11/02/24 by Sana Fernandez MD albuterol sulfate 90 mcg/actuation 1 puff inhalation Q4-6H PRN aspirin 81 mg PO DAILY atorvastatin 20 mg PO DAILY budesonide-formoterol 160-4.5 mcg/actuation (Symbicort) 2 puffs inhalation BID PRN dexamethasone 1 mg PO DAILY lisinopril 2.5 mg PO DAILY metoprolol succinate ER 50 mg PO DAILY omeprazole 20 mg PO DAILY tamsulosin 0.4 mg PO BID tirzepatide (weight loss) (Zepbound) 2.5 mg (0.5 mL) subcut QWEEK HPI Comments Details: 58-year-old male here today for follow up of subclinical hyperthyroidism, MNG and left adrenal nodule. Subclinical hyperthyroidism Multinodular goiter HPI Labs from March 2024 03/25/2024 showed TSH low at 0.16, with free T4 of 1.28 normal, labs repeated 04/11/2024 showed TSH improved but still low at 0.20, free T4 1.21, labs repeated 05/12/2024 showed TSH again slightly improved but low at 0.22, with free T4 of 1.19. Thinks he has had it for the past 20 years. Never prescribed any thyroid medication. Patient currently denies heat or cold intolerance, Denies diarrhea or constipation, hair loss, palpitation, anxiety, weight changes, mood changes, changes in appearance of eyes or vision changes, tremors, increased diaphoresis or dry skin. ? Only low energy for the past week due to viral illness. Patient denies any difficulty swallowing, pain on swallowing or voice changes or difficulty breathing. Patient denies any history of childhood neck radiation. Denies having ever used lithium, amiodarone or biotin supplements. Patient denies any family history of thyroid cancer or thyroid disease. is adopted. MD in 1995, underwent cath, no stroke No history of osteoporosis, no history of fragility fracture Retired from [employer] Quit smoking 1995, 2 packs a day , smoked for 15 years Alcohol : 1-2 drinks per week Marijuna, smokes . Ultrasound of the thyroid 06/15/2024, I reviewed the images myself which showed a subcentimeter solid, hypoechoic isthmus nodule, a right midpole subcentimeter cyst, another right midpole solid, hypoechoic TR 4 category nodule that is subcentimeter in size, a right superior pole mixed cystic solid subcentimeter nodule measuring 0.6 cm in the largest dimension which has some colloid in it, I left midpole subcentimeter mixed cystic solid nodule with a solid component that has some calcifications in a, however this is a well-defined nodule which is still subcentimeter size, I would categorize this is a TR 4 nodule, and 0.7 cm subcentimeter left midpole solid, hypoechoic, taller than wide, irregular margin nodule TR 5 category nodule (high suspicion), with the largest dominant left lower pole 2.2 cm nodule which is mixed cystic solid, hypoechoic/isoechoic, with a apparently questionable punctate echogenic foci, however I do not see this on landing just myself. I would categorize this has a TR 3 nodule instead of a TR 5. 07/11/2024: TSH 0.31, free T4 normal at 1.15, total T3 normal at 109, undetectable TSI, TPO and TSH receptor antibodies 09/22/2024: Thyroid uptake and scan showed mildly increased uptake at 24:00 hours at around 31%. Overall diffuse uptake, however cold spot in the left lower lobe. This is consistent with a 2.2 cm left dominant lower lobe nodule noted on ultrasound previously Interval history 10/19/2024: Status post FNA of the left lower 2.2 cm thyroid nodule which came back as AUS with architectural atypia, Webb category 3, Afirma came back as benign (4% risk of malignancy). Left adrenal gland nodule 07/19/24 Ct abd done for abd pain showed left 2.2 cm adrenal gland nodule , 63 post contrast HU . Symptoms: Pt denies any weight gain ( over the years it has increased slowly but recently over 2024, lost 5 lbs with diet and exercise), -no ,severe acne ,headaches - denies any hx of proximal muscle weakness, easy bruisability ,no abdominal striae,no headache,diaphoresis -No high blood pressure. -Denies any polyuria or polydipsia,no history of glucose intolerance,no abdominal pain ,skin infection or hyperpigmentation. no recent vertebra or fragility fracture -No,facial plethora or recent mood change. No hx of depression. - no episodic palpitaions, pallor, abdominal pain, diaphoresis . -no loss of libido, no erectile dysfunction Interval history Scheduled for CT adrenal 11/24/2024 09/27/2024: Labs showed aldosterone was not elevated at 4, renin 0.39, normal plasma metanephrine and normetanephrine levels. DHEA-S of 143, baseline cortisol 7.9, with a ACTH of 14. 10/03/2024: Dexamethasone suppression test showed cortisol of 1.8 with a dexamethasone level of 299. This is equivocal. Acth 6. Physical exam General: sitting comfortably in no acute distress HEENT: normocephalic/atraumatic, no lid lag Neck: supple, palpable 1 cm left-sided nodule Cardiac: normal heart sounds Pulm: normal breath sounds B/L, no added breath sounds Abd: not distended, no tenderness Extremities: no edema, no signs of myxedema, no tremors Laboratory Tests 03/25/24 04/11/24 05/12/24 10:45 09:30 10:15 TSH 0.16 L 0.20 L 0.22 L Free T4 1.28 1.21 1.19 Laboratory Tests 07/11/24 09/27/24 10/03/24 10:03 08:07 08:19 Renin 0.39 Aldosterone 4 4 TSH 0.31 L Free T4 1.15 Total T3 109 Thyroid Stim Immunoglob <89 DHEA Sulfate 143 108 Random Cortisol 7.9 1.8 ACTH 14 6 Plasma Free Metaneph 45 Plasma Free Normeta 58 Plas Total Metaneph 103 Dexamethasone 299 Thyroid Peroxidase Ab <1 TSH Receptor Ab <1.00 EXAMINATION: US THYROID 06/15/24 HISTORY: E05.90 - Thyrotoxicosis, unspecified without thyrotoxic crisis or storm TECHNIQUE: Real-time grayscale ultrasound imaging was performed and images were reviewed. COMPARISON: There are no prior studies for comparison. FINDINGS: SIZE: The right thyroid lobe measures 5.2 x 2.7 x 2.3 cm. The left thyroid lobe measures 5.9 x 2.7 x 2.3 cm. The isthmus measures 7 mm. FLOW: Flow to the gland is normal. ECHOGENICITY: The echotexture of the gland is heterogeneous. NODULES: Multiple bilateral thyroid nodules are identified as described below: Nodule #: 1 Location: Isthmus measuring 4 x 4 x 7 mm Shape: Wider than tall (0 points) Margins: Smooth (0 points) Echotexture: Hypoechoic (2 points) Composition: Solid (2 points) Calcifications: None (0 points) Total points: 4 TIRADS: TR4: Moderately suspicious. Nodule #: 2 Location: Upper pole of the right thyroid lobe measuring 6 x 4 x 4 mm Shape: Wider than tall (0 points) Margins: Smooth (0 points) Echotexture: Very hypoechoic (3 points) Composition: Mixed (1 point) Calcifications: None (0 points) Total points: 4 TIRADS: TR4: Moderately suspicious. Nodule #: 3 Location: Midportion of the left thyroid lobe measuring 9 x 8 x 9 mm Shape: Round (0 points) Margins: Smooth (0 points) Echotexture: Very hypoechoic (3 points) Composition: Mixed (1 point) Calcifications: Macrocalcifications (1 point) Total points: 5 TIRADS: TR4: Moderately suspicious. Nodule #: 4 Location: Midportion of the left thyroid lobe measuring 6 x 7 x 5 mm Shape: Taller than wide (3 points) Margins: Smooth (0 points) Echotexture: Very hypoechoic (3 points) Composition: Mixed (1 point) Calcifications: None (0 points) Total points: 7 TIRADS: TR5: Highly suspicious. Nodule #: 5 Location: Lower pole of the left thyroid lobe measuring 2.2 x 1.4 x 2.0 cm. Shape: Wider than tall (0 points) Margins: Smooth (0 points) Echotexture: Hypoechoic (2 points) Composition: Mostly solid (2 points) Calcifications: Punctate calcifications (3 points) Total points: 7 TIRADS: TR5: Highly suspicious. US/US thyroid IMPRESSION: Multiple bilateral thyroid nodules as described. Ultrasound-guided fine-needle aspiration of the most suspicious nodules at the mid and lower pole of the left thyroid lobe (nodules #4 and 5) is recommended. CT ABDOMEN AND PELVIS WITH CONTRAST 07/19/24 CLINICAL INFORMATION: [Lower abdominal pain. COMPARISON: None available. TECHNIQUE: Multidetector volumetric images were obtained from the superior aspect of the liver through the pubic symphysis following administration 85 mL of Omnipaque 350 intravenous contrast. Sagittal and coronal reformatted images were obtained on the technologist's workstation. Oral contrast: Yes This CT examination was performed using dose optimization techniques as appropriate, variously including the following: *Automated exposure control *Adjustment of mA and/or kV according to patient size (this includes techniques or standardized protocols for targeted exams where dose is matched to indication/reason for exam; i.e. extremities or head) *Use of iterative reconstruction technique. DLP: 688 mGy centimeter. FINDINGS: LUNG BASES: No acute airspace disease. LIVER, GALLBLADDER, AND BILIARY TREE: Liver measures 14 cm. No focal lesion. The portal veins and intrahepatic portion of the IVC are patent. No intrahepatic biliary ductal dilatation. Punctate calcifications in the dependent portion of the gallbladder lumen. No pericholecystic fluid collection or gallbladder wall thickening. No extrahepatic biliary ductal dilatation. PANCREAS: No focal lesion. No main pancreatic ductal dilatation. Punctate calcifications in the head of the pancreas. No peripancreatic fluid collections. SPLEEN: 10 cm. No focal lesion. ADRENAL GLANDS: There is a 2.2 cm nodular lesion in the left adrenal gland which measures 63 Hounsfield units at the portal venous phase. No nodular lesions, right adrenal gland. KIDNEYS AND URETERS: Renal cortical defect/prior surgical procedure involving the upper mid portion of the left kidney. Punctate calcifications in the corticomedullary junction left kidney. No hydronephrosis in the right kidney. No gross renal mass. There is a 1 cm exophytic cystic lesion in the anterior midportion of the left kidney. There is a 0.6 cm exophytic cyst in the posterior upper pole left kidney.. BLADDER: Fluid-filled. GASTROINTESTINAL TRACT: No intestinal obstruction pattern. Appendix is normal. No pneumatosis intestinalis. No intestinal wall thickening. No ascites. No pneumoperitoneum Hiatal hernia, small to moderate size.. ABDOMINAL WALL: Diastases abdominal rectus muscles in the periumbilical region. LYMPH NODES: Nonspecific prominent lymph nodes in the retroperitoneum VASCULAR: There is a focal 4.5 cm crescent-shaped calcification in the cardiac apex. Calcified plaques in the aorta and iliac arteries without aneurysm or dissection. Calcified plaques in the splenic artery. PELVIC VISCERA: Calcifications at the seminal vesicles. Prostate gland is not enlarged versus prior procedure. OSSEOUS STRUCTURES: Multilevel thoracic and lumbar spondylosis more conspicuous at L5-S1. Osteopenia versus osteoporosis. No gross lytic or blastic lesions. No acute fracture or gross listhesis. CT/CT abdomen pelvis w IV con IMPRESSION: Probable nonobstructing nephrolithiasis left kidney. Prior surgical procedure left kidney. Exophytic cystic lesions, left kidney. Cholelithiasis. Focal crescent-shaped calculation the cardiac apex suggesting calcified pseudoaneurysm versus akinetic/prior infarct. 2.2 cm nodule, left adrenal gland. Hiatal hernia. Fleischner guidelines were followed. EXAMINATION: NM THYROID IMAGING AND UPTAKE 09/22/24 CLINICAL INFORMATION: E04.2 - Nontoxic multinodular goiter COMPARISON: Correlation is made with a thyroid ultrasound dated 06/15/2024. TECHNIQUE: Following the oral administration of 288 microcuries of I-123 sodium iodide, thyroid uptake was performed and expressed as a percentage of the administrated dose. Gamma scintillation camera images of the thyroid in the anterior and right and left anterior oblique views were obtained using a pinhole collimator following the administration of 10.0 mCi Tc-99m pertechnetate. FINDINGS: There is the suggestion of mildly decreased uptake at the level lower pole of the left thyroid lobe, likely corresponding to the dominant nodule seen in this region on ultrasound. Activity is otherwise homogeneous. The uptake is 12.35% at 4 hours and 31.4% at 24 hours. NM/NM thyroid w uptake IMPRESSION: 1. Mildly decreased uptake at the lower pole of the left thyroid lobe, likely corresponding to the dominant nodule seen on prior ultrasound. 2. Normal thyroid uptake at 4 and 24 hours. Electronically signed by: Uri Robertson MD 09/23/2024 09:10 AM EDT EXAMINATION: DXA BONE DENSITY AXIAL 09/21/24 HISTORY: M81.0 - Age-related osteoporosis without current pathological fracture TECHNIQUE: ABC Live Dual energy absorptiometry (DEXA) of the lumbar spine, total left hip, and femoral neck was performed. COMPARISON: There are no prior studies for comparison. FINDINGS: The bone mineral density of the lumbar spine is 0.989 g/cm2, corresponding to a T-score of -1.9, and a Z-score of -2.3. This is indicative of osteopenia. The bone mineral density of the left total hip is 0.874 g/cm2, corresponding to a T-score of -1.6, and a Z-score of -1.6. This is indicative of osteopenia. The bone mineral density of the left femoral neck is 0.824 g/cm2, corresponding to a T-score of -1.9, and a Z-score of -1.5. This is indicative of osteopenia. FRACTURE RISK: The FRAX index suggests a risk of major osteoporotic fracture of 6.4%, and of hip fracture 0.9%. MM/XR DEXA axial skeleton IMPRESSION: Based on bone mineral density, and according to World Health Organization (WHO) criteria, the diagnosis is consistent with osteopenia. [facility] Medical History (Updated 09/29/24 @ 10:29 by Jodie Husain PA-C) Osteopenia Multiple thyroid nodules Subclinical hyperthyroidism Asthma Plantar fasciitis Past heart attack High cholesterol Social History Housing: House Alcohol intake: current Patient Tobacco Use Status: Former Tobacco user Cigarette Packs Per Day: 2.5 Years Smoked: 12 e-Cigarette/Vaping Use: Never Used Second Hand Smoke Exposure: No Substance Use Type: Marijuana service: Yes Current occupational status: retired Current occupational exposures/hazards: No Cognitive needs: No Hearing needs: No Vision needs: No Assessment & Plan Assessment & Plan (1) Adrenal nodule: Code(s): E27.9 - Disorder of adrenal gland, unspecified Category: Medical Plan: 59-year-old male also found to have left adrenal gland 2.[address] abdomen done for abdominal pain in July 2024. It said it was 63 Hounsfield unit on postcontrast but we will need percentage washouts and precontrast Hounsfield units as well. Scheduled for CT adrenal 11/24/2024 09/27/2024: Labs showed aldosterone was not elevated at 4, renin 0.39, normal plasma metanephrine and normetanephrine levels. DHEA-S of 143, baseline cortisol 7.9, with a ACTH of 14. 10/03/2024: Dexamethasone suppression test showed cortisol of 1.8 with a dexamethasone level of 299. This is equivocal. Acth 6. We will Check for 24 hour urine cortisol and salivary cortisol to rule out hypercortisolism. Though I am not suspecting it because he does not have any stigmata of Miranda's syndrome such as abdominal striae, skin thinning, facial plethora, easy bruising. Blood pressure is well-controlled. No history of diabetes. There is some concern for low bone density. ? Plan: -scheduled for CT of the adrenal gland 11/24/2024 to further define lesion characteristics and rule out malignancy. -ordered 24 hour urine cortisol levels, salivary cortisol level -follow up in 6-8 weeks to discuss results (2) Multiple thyroid nodules: Code(s): E04.2 - Nontoxic multinodular goiter Category: Medical Plan: See below (3) Subclinical hyperthyroidism: Code(s): E05.90 - Thyrotoxicosis, unspecified without thyrotoxic crisis or storm Category: Medical Plan: 58-year-old male with a history of subclinical hyperthyroidism who is coming in today to establish care. Apparently was diagnosed some 20 years ago and has had low TSH levels. Labs from March 2024 03/25/2024 showed TSH low at 0.16, with free T4 of 1.28 normal, labs repeated 04/11/2024 showed TSH improved but still low at 0.20, free T4 1.21, labs repeated 05/12/2024 showed TSH again slightly improved but low at 0.22, with free T4 of 1.19. Given that he is seeing his TSH has been low for many years, unlikely this is because of thyroiditis. No prior contrast exposure. He has a history of heart disease with an MD, hence could possibly consider treatment in his case. Otherwise he is less than 65 years of age and TSH levels are greater than 0.1, and no history of osteoporosis. Ultrasound of the thyroid 06/15/2024, I reviewed the images myself which showed a subcentimeter solid, hypoechoic isthmus nodule, a right midpole subcentimeter cyst, another right midpole solid, hypoechoic TR 4 category nodule that is subcentimeter in size, a right superior pole mixed cystic solid subcentimeter nodule measuring 0.6 cm in the largest dimension which has some colloid in it, I left midpole subcentimeter mixed cystic solid nodule with a solid component that has some calcifications in a, however this is a well-defined nodule which is still subcentimeter size, I would categorize this is a TR 4 nodule, and 0.7 cm subcentimeter left midpole solid, hypoechoic, taller than wide, irregular margin nodule TR 5 category nodule (high suspicion), with the largest dominant left lower pole 2.2 cm nodule which is mixed cystic solid, hypoechoic/isoechoic, with a apparently questionable punctate echogenic foci, however I do not see this on landing just myself. I would categorize this has a TR 3 nodule instead of a TR 5. 07/11/2024: TSH 0.31, free T4 normal at 1.15, total T3 normal at 109, undetectable TSI, TPO and TSH receptor antibodies 09/22/2024: Thyroid uptake and scan showed mildly increased uptake at 24:00 hours at around 31%. Overall diffuse uptake, however cold spot in the left lower lobe. This is consistent with a 2.2 cm left dominant lower lobe nodule noted on ultrasound previously 10/19/2024: Status post FNA of the left lower 2.2 cm thyroid nodule which came back as AUS with architectural atypia, Webb category 3, Afirma came back as benign (4% risk of malignancy). At this point we will plan to repeat ultrasound of the thyroid in summer. While like I mentioned before he does have some concerns for low bone density and history of MD before, where you can consider treating subclinical hyperthyroidism, his most recent levels look improved. We will plan to repeat blood work in summer. If he has any symptoms blood work can be repeated sooner. Plan: -ordered thyroid ultrasound to be done September 2025 -plan to repeat blood work in summer Plan I spent 30 minutes in reviewing the record, seeing the patient and documenting in the medical record. Orders: Orders 2 Creatinine, 24 Hr Group Today E27.9 - Disorder of adrenal gland, unspecified US thyroid 09/25/25 E04.2 - Nontoxic multinodular goiter Saliva Cortisol Today E27.9 - Disorder of adrenal gland, unspecified Cortisol, Free 24Hr Urine Today E27.9 - Disorder of adrenal gland, unspecified Patient Instructions: Do Ct adrenal 11/24/24 do 24 hr urine collection 24 hr urine collection instructions You have been asked to collect your urine for 24 hours to assess for cortisol excretion. You must choose a 24 hour period of time when you will be home. The morning of the first day, DISCARD the FIRST morning void and then note the time. You will collect every single void from then on for 24 hours. For example, if you wake up at 6am and urinate, flush down that void. You will then collect every drop of urine all day and all night through 6am the following day. You will urinate one last time at 6am for the collection. The jug of urine must be kept in the refrigerator until you bring it to the lab. Do salivary cortisol test Salivary cortisol collection instructions Specimen requirement Collect 1 mL or more of Saliva/fully saturated swab. Do not eat for 60 minutes prior to collecting specimen. Do not consume alcohol 12 hours prior to collecting specimen. Do not brush teeth immediately before collecting specimen as gums may bleed in contaminated specimen causing a falsely elevated result. Rinse mouth thoroughly with water 10 minutes before collecting specimen. Recommend collection time is generally between 11 PM and 1 AM. Be sure to clearly label each tube collected with correct date and time. Specimen visibly contaminated with blood, cellular debris, food particles or mucus must be recollected. Specimen collection 1. ?Label the exterior tube after salivette collection device using waterproof pen with your [patient] first and last name as well as date and time collected. 2. ?Remove the stopper of the container to expose the swab. ?Do not remove the insert from the tube. ?This is necessary for processing the specimen. 3. ?Place swab directly into the mouth by tipping the tube so that the swab falls into the mouth. The swab should be placed under the tongue or allow to move freely across the tongue. ?Do not place a swab between cheek and gum. ?Gently chewing the swab is acceptable. 4. ?Keep the swab in your mouth for 2 to 3 minutes. ?Be sure the swab is completely saturated with saliva; this will ensure that enough volume is collected. 5. ?Return the swab back into the insert. ?Do not touch the swab with the fingers. ?Do not remove the insert from the tube. 6. ?Replace the stopper, ensuring that the cap is tight [the cap will click when inserted properly] 7. ?Return salivette collection device to the lab. Preparation instruction If multiple specimens are submitted, ensure that all tubes are clearly labeled with correct time and date. Submit specimen in salivette collection device only. ?Other containers are not acceptable. Follow up in December to discuss results Coding Level of Care Code Est Pt Level 4 (89925) Diagnoses Adrenal nodule E27.9 Multiple thyroid nodules E04.2 Subclinical hyperthyroidism E05.90 Time Spent (min) 30
== END 2024-11-02 14:10 | disposition home or self-care (01) ==
LOC: HO.ENCR 13:40
PROVIDERS: PCP Physician Assistant; Visit Provider Student in an Organized Health Care Education/Training Program
DX: E27.9 Disorder of adrenal gland, unspecified (principal); E04.2 Nontoxic multinodular goiter; E05.90 Thyrotoxicosis, unspecified without thyrotoxic crisis or storm
CPT/HCPCS: 99214

== ENCOUNTER 2024-11-03 14:22 | Outpatient (AMB) | payer OTHER, SELFPAY ==
--- NOTE | 2024-11-03 14:24 | MHC.OFFVIS ---
Vital Signs 11/03/24 14:29 Height 5 ft 10 in Weight 237 lb BMI 34.0 BP 122/69 Blood Pressure Location Rt brachial Position Sitting Pulse 66 Intake Visit Reasons: us results Intake Note: Patient here to discuss abdomen US on 10-20-24 results. Patient c/o: no concerns. Reports no changes in medical hx since last office visit. 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 Accompanied by: Self / Same As Patient Allergies amoxicillin Allergy (Intermediate, Verified 11/03/24 14:30) Abdominal Pain bee venom protein (honey bee) Allergy (Intermediate, Verified 11/03/24 14:30) Swelling droperidol (From Inapsine) Allergy (Intermediate, Verified 11/03/24 14:30) lock jaw prochlorperazine (From Compazine) Allergy (Intermediate, Verified 11/03/24 14:30) lock jaw shellfish derived Allergy (Intermediate, Verified 11/03/24 14:30) Hives HPI Comments Details: 59-year-old male patient presenting with complaints of chronic abdominal pain with concerns for gallstones and kidney stones. He noted abdominal pain related to intestinal issues for the past 40 years which healing to stress and bad diet. He was found to have kidney stones and gallstones on a recent CT abdomen and pelvis performed on 07/19/2024. The pain is mainly in the flanks currently both right and left and does not seem to be associated with food except for occasionally fatty food which does seem to increase his pain. He has a history of a [place] in 1992 and does occasionally have chest discomfort which he is being followed by the chemist water purification. Review of the CT of the abdomen and pelvis does reveal a small inessa of calcification within the gallbladder closely associated with the gallbladder wall. He returns today following a recent ultrasound which again revealed nonobstructing small gallstones within the gallbladder with a negative De Los Santos sign. No wall thickening, pericholecystic fluid or common bile duct dilatation was identified. [facility] Medical History Osteopenia Multiple thyroid nodules Subclinical hyperthyroidism Asthma Plantar fasciitis Past heart attack High cholesterol Social History Housing: House Alcohol intake: current Patient Tobacco Use Status: Former Tobacco user Cigarette Packs Per Day: 2.5 Years Smoked: 12 e-Cigarette/Vaping Use: Never Used Second Hand Smoke Exposure: No Substance Use Type: Marijuana service: Yes Current occupational status: retired Current occupational exposures/hazards: No Cognitive needs: No Hearing needs: No Vision needs: No Review of Systems Const All systems reviewed & are unremarkable except as noted in HPI and below Denies chills, Denies fever(s), Denies headache(s), Denies poor appetite and Denies weakness ENT Denies headache(s) Card Denies chest pain, Denies irregular heart rhythm, Denies palpitations and Denies dyspnea Resp Denies cough, Denies excessive phlegm production and Denies dyspnea GI Reports abdominal pain, Reports bloating, Denies change in bowel habits, Denies constipation, Denies heartburn, Denies diarrhea, Denies nausea and Denies vomiting Denies difficulty urinating and Denies urinary frequency Musc Denies back pain, Denies muscle weakness and Denies numbness Skin/Breast Denies changing lesions and Denies unusual bruising Neuro Denies headache(s), Denies numbness, Denies paresthesias and Denies weakness Psych Denies anxiety and Denies depression Endo Denies palpitations Ty/Lymph Denies lymphadenopathy Physical Exam Vital Signs: Last Vital Signs Pulse 66 11/03/24 14:29 BP 122/69 11/03/24 14:29 BMI result Body Mass Index 34.0 Const General: cooperative and no acute distress Nutritional Appearance: well nourished Orientation/consciousness: patient oriented x3 Limitations: no limitations HEENT Head: Yes normocephalic and Yes atraumatic Ears: hearing grossly normal bilaterally Resp Effort & Inspection: normal respiratory effort, no audible wheezes, no cough and no respiratory distress Cardio Jugular venous distension: no JVD GI Inspection: Yes normal to inspection Palpation (GI): Soft to palpation, nontender, no guarding and No hepatosplenomegaly present Percussion: Yes normal to percussion Skin Other: Warm, dry, no rash Neuro General: patient oriented x3 Extrem General: Yes no clubbing, cyanosis or edema Assessment & Plan Assessment & Plan (1) Cholelithiases: Code(s): K80.20 - Calculus of gallbladder without cholecystitis without obstruction Category: Medical Qualifiers: Cholelithiasis location: gallbladder Cholecystitis presence: without cholecystitis Biliary obstruction: without biliary obstruction Qualified Code(s): K80.20 - Calculus of gallbladder without cholecystitis without obstruction (2) Renal stones: Code(s): N20.0 - Calculus of kidney Category: Medical Plan 59-year-old male patient presenting with complaints of bilateral flank pain with a long history of intestinal symptoms found on a recent CT to have evidence of a gallstone with calcification. An ultrasound of the abdomen was performed which revealed small nonobstructing gallstones within the gallbladder body with no other evidence of gallbladder wall thickening, pericholecystic fluid, dilated common bile duct or sonographic De Los Santos sign. In light of the atypical symptoms and minimal findings on ultrasound and CT I recommended no surgical intervention at this time. He expressed understanding and agrees with the plan. Coding Level of Care Code Est Pt Level 3 (42100) Diagnoses Calculus of gallbladder without cholecystitis without obstruction K80.20 Cholelithiasis location: gallbladder Cholecystitis presence: without cholecystitis Biliary obstruction: without biliary obstruction Renal stones N20.0
[2024-11-03 14:29] VITALS: BP 122/69; PULSE 66; BMI 34.0
== END 2024-11-03 14:40 | disposition home or self-care (01) ==
LOC: HO.HGS 14:23
PROVIDERS: PCP Physician Assistant; Visit Provider Surgery
DX: K80.20 Calculus of gallbladder without cholecystitis without obstruction (principal); N20.0 Calculus of kidney
CPT/HCPCS: 99213

== ENCOUNTER 2024-11-23 11:20 | Outpatient (REF) | payer OTHER, SELFPAY ==
[2024-11-23 13:04] LABS: Creatinine, mg/dL 34.57
[2024-11-23 13:46] LABS: Total Volume 24 Hour Urine 2450 mL
[2024-11-29 19:48] LABS: Total Volume, 24 Hr Urine 2450 mL
[2024-12-03 03:34] LABS: Saliva Cortisol 0.08 mcg/dL
== END 2024-11-23 11:21 | disposition home or self-care (01) ==
LOC: HO.LNP 11:20
PROVIDERS: Visit Provider Student in an Organized Health Care Education/Training Program
DX: E27.9 Disorder of adrenal gland, unspecified (principal)
CPT/HCPCS: 82530; 82570

== ENCOUNTER 2024-11-24 08:44 | Outpatient (REF) | payer OTHER, SELFPAY ==
--- NOTE | ~2024-11-24 | CT_ITS ---
CLINICAL HISTORY: E27.9 - Disorder of adrenal gland, unspecified --- Additional Notes or Special Instructions: abdomen without contrast per radiologist ([place] measurements <10) CT abdomen without contrast Comparison: US - US ABDOMEN COMPLETE - 10/20/24 09:[address]/KS/SR - CT ABDOMEN PELVIS WITH IV CONTRAST - 07/19/24 10:58 EDT Findings: The lung bases are clear. Calcified left ventricular apical aneurysm is present as before, measuring 42 mm. Gallbladder is within normal limits. There is a 23 mm left adrenal nodule with noncontrast Hounsfield units of -10. Scarring involving the left kidney. Left renal calcifications measuring less than 5 mm diameter are unchanged. Solid organs are otherwise within normal limits. No bowel obstruction, pneumoperitoneum, or pneumatosis. No acute fracture. IMPRESSION: 1. Left adrenal adenoma. 2. Left renal scarring and nonobstructing calcifications. 3. Stable left ventricular apical aneurysm. This document has been electronically signed by: Melisa Andino MD on 11/24/2024 16:41:09
== END 2024-11-24 08:45 | disposition home or self-care (01) ==
LOC: HO.CT 08:44
PROVIDERS: PCP Physician Assistant; Visit Provider Student in an Organized Health Care Education/Training Program
DX: E27.9 Disorder of adrenal gland, unspecified (principal)
CPT/HCPCS: 74150

== ENCOUNTER → 2024-11-24 08:45 | Outpatient (BNV) | payer OTHER, SELFPAY | PROVIDERS: PCP Physician Assistant; Visit Provider Radiology Diagnostic Radiology | DX: D35.02 Benign neoplasm of left adrenal gland (principal); N20.0 Calculus of kidney; I25.3 Aneurysm of heart | CPT/HCPCS: 74150 ==

== ENCOUNTER 2024-12-09 10:23 | Outpatient (AMB) | payer OTHER, SELFPAY ==
[2024-12-09 10:32] VITALS: BP 122/80; PULSE 65; O2SAT 96; BMI 33.9
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
== END 2024-12-09 11:47 | disposition home or self-care (01) ==
LOC: HO.HSMS 10:24
PROVIDERS: PCP Physician Assistant; Visit Provider Physician Assistant Medical
DX: G47.19 Other hypersomnia (principal); G47.34 Idiopathic sleep related nonobstructive alveolar hypoventilation
CPT/HCPCS: 99204

== ENCOUNTER 2025-01-04 11:12 | Outpatient (AMB) | payer OTHER, SELFPAY ==
--- NOTE | 2025-01-04 11:15 | MHC.PC.OV ---
Vital Signs 01/04/25 11:18 Height 5 ft 10 in Weight 232 lb BMI 33.3 BP 134/66 Blood Pressure Location Rt brachial Position Sitting Respiration 16 Pulse 70 Pulse Source Pulse Oximeter Temp 98.1 F Temp Source Oral Pulse Oximetry (%) 95 Oxygen Delivery Method Room Air Intake Visit Reasons: bp Intake Note: Blood pressure follow up Allergies amoxicillin Allergy (Intermediate, Verified 01/04/25 11:17) Abdominal Pain bee venom protein (honey bee) Allergy (Intermediate, Verified 01/04/25 11:17) Swelling droperidol (From Inapsine) Allergy (Intermediate, Verified 01/04/25 11:17) lock jaw prochlorperazine (From Compazine) Allergy (Intermediate, Verified 01/04/25 11:17) lock jaw shellfish derived Allergy (Intermediate, Verified 01/04/25 11:17) Hives Medication List - Last Reconciled 01/04/25 by Jodie Husain PA-C albuterol sulfate 90 mcg/actuation 1 puff inhalation Q4-6H PRN aspirin 81 mg PO DAILY atorvastatin 20 mg PO DAILY budesonide-formoterol 160-4.5 mcg/actuation (Symbicort) 2 puffs inhalation BID PRN lisinopril 2.5 mg PO DAILY metoprolol succinate ER 50 mg PO DAILY omeprazole 20 mg PO DAILY tamsulosin 0.4 mg PO BID tirzepatide (weight loss) (Zepbound) 5 mg (0.5 mL) subcut QWEEK Tobacco use date assessed: 09/29/24 Dental Screening Dental Screen Date: 03/23/24 HPI bp HPI Details Patient is a 59-year-old male with a significant past medical history of hypertension, hyperlipidemia, diastolic dysfunction, left ventricular apical aneurysm, hypothyroidism, varicose veins presenting today for a follow up. Pulm: He is following with Dr. Thakkar for asthma. He is seeing him next month. He has had an increased cough for the last couple months. He is using albuterol about once a day. He is compliant with the Symbicort. He does use Anuradha. He denies feeling sick. No fevers or chills. -of note, he did start lisinopril this summer. CV: He is currently on metoprolol 50 mg daily, aspirin and atorvastatin [address] Rust for his heart failure and left ventricular apical aneurysm which appears stable. No cp, sob. Has follow up next March 2025. GI: He still gets right sided abdominal pain after eating. He states it is not as frequent and did see General surgery and they are going to hold off on any surgery at this point. He states some of the lower pain is gone but also still intermittently present. Scheduled with GI on 01/12. 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 He does not want to see pain management yet. He states that he does not want to see physical therapy as he saw them in the past and found this ineffective. Nephro: Following with Nephrology for microalbuminuria. On lisinopril 2.5 mg daily. Uro: Was recently noted on CT to have renal cysts and stones. Following with urology. Endo: He is following with endocrinology next week to discuss the adrenal nodule. He is also being followed for subclinical hyperthyroidism with plans to repeat imaging of the thyroid and TSH in the summer of 2025. General: On Zepbound for weight loss. He is tolerating this very well. He states his mood is improved with this. He is down 15 lbs. He has tried traditional diet and exercise. He has used keto diet, Protalex diet, and is currently treating watch carb and sugar intake. he has seen a manager of community relations in the past. He has been unable to successfully lose weight on his own. He does have CHRISTINA. -his insurance will consider approval of zepbound from a board certified passenger service agent or weight management doctor. Neuro/sleep: Following with sleep Medicine and scheduled to have a repeat sleep study. He has severe obstructive sleep apnea and is compliant with CPAP. Derm: follows with ROSALINA but dissatisfied. Would like to see a different portfolio management marketing. No acute concerns, goes for routine checks. Ophthamology: follows with eye and lasik. [facility] Medical History Osteopenia Multiple thyroid nodules Subclinical hyperthyroidism Asthma Plantar fasciitis Past heart attack High cholesterol Social History (Updated 01/04/25 @ 11:22 by Eliana Khan CMA) Housing: House Alcohol intake: current Patient Tobacco Use Status: Former Tobacco user Cigarette Packs Per Day: 2.5 Years Smoked: 12 e-Cigarette/Vaping Use: Never Used Second Hand Smoke Exposure: No Substance Use Type: Marijuana service: Yes Current occupational status: retired Current occupational exposures/hazards: No Cognitive needs: No Hearing needs: No Vision needs: No Questionnaire Thrive Questionnaire Date Thrive assessed: 03/23/24 I am a: Patient What is your living situation today?: I have a steady place to live Within the past 12 months, did the food you bought not last and you didn't have the money to get more?: Never true Within the past 12 months, did you worry whether your food would run out before you got money to buy more?: Never true Do you have trouble paying for medicines?: I choose not to answer this question Do you have trouble getting transportation to medical appointments?: No Do you have trouble paying your heating and electricity bill?: No Do you have trouble taking care of your child, family member or friend?: No Do you have trouble with day-to-day activities such as bathing, preparing meals, shopping, managing finances, etc.?: No Are you currently unemployed and looking for a job?: No Are you interested in more education?: No Please select the resources that you would like help with: None Currently or been in a relationship where the following occur: No concerns reported THRIVE Score: 0 Physical exam (Primary Care) Vital Signs: Last Vital Signs Temp 98.1 F 01/04/25 11:18 Pulse 70 01/04/25 11:18 Resp 16 01/04/25 11:18 BP 134/66 01/04/25 11:18 Pulse Ox 95 01/04/25 11:18 Oxygen Delivery Method Room Air 01/04/25 11:18 BMI result Body Mass Index 33.3 Tobacco/Smoking Status: Tobacco use Status Tobacco use date assessed 09/29/24 01/04/25 11:23 Patient Tobacco Use Status Former Tobacco user 01/04/25 11:23 e-Cigarette/Vaping Use Never Used 01/04/25 11:23 Thrive Assessment: Date of Thrive Assessment Date Thrive assessed 03/23/24 01/04/25 11:23 Currently or been in a relationship where the following occur: No concerns reported Const Orientation/consciousness: patient oriented x3 HENMT Ears: hearing grossly normal bilaterally Neck Thyroid: Thyroid normal Lymphatic: no lymphadenopathy noted Resp Auscultation: clear to auscultation bilaterally Cardio Rate: regular rate Rhythm: regular rhythm Heart sounds: S1 normal heart sound present and S2 normal heart sound present GI Inspection: Yes normal to inspection Palpation (GI): Soft to palpation and Other GI palpation findings present (nontender, no cva tenderness) Auscultation: normoactive bowel sounds Rectal Exam - Male: Yes deferred Skin General skin exam: no rashes or lesions noted Neuro General: patient oriented x3, gait normal and no focal motor deficits Results Reviewed Results Reviewed: IMPRESSION: 1. Left adrenal adenoma. 2. Left renal scarring and nonobstructing calcifications. 3. Stable left ventricular apical aneurysm. Coding Level of Care Code Est Pt Level 4 (96952) Complex EM visit Add On G2211 Diagnoses Moderate persistent asthma without complication J45.40 Asthma severity: moderate Asthma persistence: persistent Asthma complication type: uncomplicated Cough R05.9 Primary hypertension I10 Hypertension type: primary hypertension Assessment & Plan Assessment & Plan (1) Asthma: Code(s): J45.909 - Unspecified asthma, uncomplicated Category: Medical Qualifiers: Asthma severity: moderate Asthma persistence: persistent Asthma complication type: uncomplicated Qualified Code(s): J45.40 - Moderate persistent asthma, uncomplicated Plan: as below We will try Symbicort will see dr thakkar next month (2) Cough: Code(s): R05.9 - Cough, unspecified Category: Medical Plan: cxr today will try singulair f/u in 3-4 weeks to be reassesed may consider d/c the lisinopril (3) HTN (hypertension): Code(s): I10 - Essential (primary) hypertension Category: Medical Qualifiers: Hypertension type: primary hypertension Qualified Code(s): I10 - Essential (primary) hypertension Plan: Continue current regimen Orders: Orders XR chest 2V Today J45.909 - Unspecified asthma, uncomplicated, R05.9 - Cough, unspecified Medications: New tirzepatide (weight loss) (Zepbound) 7.5 mg (0.5 mL) subcut QWEEK 2 mL 3RF montelukast (Singulair) 10 mg PO BEDTIME 90 tabs 0RF Discontinued tirzepatide (weight loss) (Zepbound) Discontinued Reason: Doctor's Order 5 mg (0.5 mL) subcut QWEEK 2 mL 2RF
[2025-01-04 11:18] VITALS: BP 134/66; PULSE 70; RESP 16; TEMP 36.7; O2SAT 95; BMI 33.3
== END 2025-01-04 11:44 | disposition home or self-care (01) ==
LOC: HO.HMCFM 11:12
PROVIDERS: PCP Physician Assistant; Visit Provider Physician Assistant
DX: J45.40 Moderate persistent asthma, uncomplicated (principal); R05.9 Cough, unspecified; I10 Essential (primary) hypertension

== ENCOUNTER 2025-01-04 11:12 | Outpatient (REF) | payer OTHER, SELFPAY | END 2025-01-04 11:13 | disposition home or self-care (01) | LOC: HO.WFDLDS 11:12 | PROVIDERS: PCP Physician Assistant; Visit Provider Physician Assistant | DX: Z13.89 Encounter for screening for other disorder (principal) ==

== ENCOUNTER 2025-01-10 10:00 | Outpatient (AMB) | payer OTHER, SELFPAY ==
--- NOTE | 2025-01-10 10:06 | MHC.OFFVIS ---
Vital Signs 01/10/25 10:07 Height 5 ft 10 in Weight 233 lb 11.04 oz BMI 33.5 BP 106/70 Blood Pressure Location Rt brachial Position Sitting Pulse 76 Pulse Source Pulse Oximeter Pulse Oximetry (%) 96 Oxygen Delivery Method Room Air Intake Visit Reasons: Adrenal nodule Intake Note: Patient presents today for a follow-up on Adrenal Nodule: Patient of DR Sana Fernandez MD Director Of Undergraduate Admissions Required: No Accompanied by: Self / Same As Patient Allergies amoxicillin Allergy (Intermediate, Verified 01/10/25 10:08) Abdominal Pain bee venom protein (honey bee) Allergy (Intermediate, Verified 01/10/25 10:08) Swelling droperidol (From Inapsine) Allergy (Intermediate, Verified 01/10/25 10:08) lock jaw prochlorperazine (From Compazine) Allergy (Intermediate, Verified 01/10/25 10:08) lock jaw shellfish derived Allergy (Intermediate, Verified 01/10/25 10:08) Hives HPI Comments Details: 58-year-old male here today for follow up of subclinical hyperthyroidism, MNG and left adrenal nodule. Last seen by Dr. Fernandez 11/02/2024. This is the 1st time that I see this patient Subclinical hyperthyroidism Multinodular goiter HPI Labs from March 2024 03/25/2024 showed TSH low at 0.16, with free T4 of 1.28 normal, labs repeated 04/11/2024 showed TSH improved but still low at 0.20, free T4 1.21, labs repeated 05/12/2024 showed TSH again slightly improved but low at 0.22, with free T4 of 1.19.. Thinks he has had it for the past 20 years. Never prescribed any thyroid medication. Patient denied heat or cold intolerance, Denies diarrhea or constipation, hair loss, palpitation, anxiety, weight changes, mood changes, changes in appearance of eyes or vision changes, tremors, increased diaphoresis or dry skin. ? Only low energy for the past week due to viral illness. Patient denies any difficulty swallowing, pain on swallowing or voice changes or difficulty breathing. Patient denies any history of childhood neck radiation. Denies having ever used lithium, amiodarone or biotin supplements. Patient denies any family history of thyroid cancer or thyroid disease. is adopted. 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 Ultrasound of the thyroid 06/15/2024, I reviewed the images myself which showed a subcentimeter solid, hypoechoic isthmus nodule, a right midpole subcentimeter cyst, another right midpole solid, hypoechoic TR 4 category nodule that is subcentimeter in size, a right superior pole mixed cystic solid subcentimeter nodule measuring 0.6 cm in the largest dimension which has some colloid in it, I left midpole subcentimeter mixed cystic solid nodule with a solid component that has some calcifications in a, however this is a well-defined nodule which is still subcentimeter size, I would categorize this is a TR 4 nodule, and 0.7 cm subcentimeter left midpole solid, hypoechoic, taller than wide, irregular margin nodule TR 5 category nodule (high suspicion), with the largest dominant left lower pole 2.2 cm nodule which is mixed cystic solid, hypoechoic/isoechoic, with a apparently questionable punctate echogenic foci, however I do not see this on landing just myself. I would categorize this has a TR 3 nodule instead of a TR 5. 07/11/2024: TSH 0.31, free T4 normal at 1.15, total T3 normal at 109, undetectable TSI, TPO and TSH receptor antibodies 09/22/2024: Thyroid uptake and scan showed mildly increased uptake at 24:00 hours at around 31%. Overall diffuse uptake, however cold spot in the left lower lobe. This is consistent with a 2.2 cm left dominant lower lobe nodule noted on ultrasound previously 10/19/2024: Status post FNA of the left lower 2.2 cm thyroid nodule which came back as AUS with architectural atypia, Carlton category 3, Afirma came back as benign (4% risk of malignancy). Left adrenal gland nodule 07/19/24 Ct abd done for abd pain showed left 2.2 cm adrenal gland nodule , 63 post contrast HU . Symptoms: Pt denies any weight gain ( over the years it has increased slowly but recently over 2024, lost 5 lbs with diet and exercise), -no ,severe acne ,headaches - denies any hx of proximal muscle weakness, easy bruisability ,no abdominal striae,no headache,diaphoresis -No high blood pressure. -Denies any polyuria or polydipsia,no history of glucose intolerance,no abdominal pain ,skin infection or hyperpigmentation. no recent vertebra or fragility fracture -No,facial plethora or recent mood change. No hx of depression. - no episodic palpitaions, pallor, abdominal pain, diaphoresis . -no loss of libido, no erectile dysfunction 09/27/2024: Labs showed aldosterone was not elevated at 4, renin 0.39, normal plasma metanephrine and normetanephrine levels. DHEA-S of 143, baseline cortisol 7.9, with a ACTH of 14. 10/03/2024: Dexamethasone suppression test showed cortisol of 1.8 with a dexamethasone level of 299. This is equivocal. Acth 6. Interval history Since the last visit, the patient denies symptoms suggestive of hyperthyroidism, including palpitations, heat intolerance, tremors, or visual disturbances. There are no new complaints of weight gain in the past six months, nor symptoms of hyperglycemia such as increased thirst, hunger, or polyuria. The patient reports a history of hypothyroidism but has not noticed any significant changes Regarding the adrenal nodule, the most recent imaging (CT scan) shows stability compared to prior studies, with no interval growth or suspicious features. Hormonal workup has been equivocal: slightly elevated 24-hour urine cortisol, and normal late-night salivary cortisol. The patient remains asymptomatic from a clinical standpoint, with no evidence of Cushingoid features. Physical exam General: Well appearing. NAD. Not Cushingoid or Acromegalic Neck/Thyroid: Thyroid not palpable, no nodules. CV: RRR, no murmur. No edema. Resp:Lungs clear to auscultation bilaterally Abdomen: Soft, nontender. nondistended Extremities/Neuro: No weakness or tremor of outstretched hands Laboratory Tests 09/27/24 10/03/24 11/23/24 08:07 08:19 07:00 Creatinine 0.69 Aldosterone 4 4 DHEA Sulfate 143 108 Random Cortisol 7.9 1.8 ACTH 14 6 Plasma Free Metaneph 45 Plasma Free Normeta 58 Plas Total Metaneph 103 Ur Creatinine 24 Hour 0.93 Ur Free Cortisol 24 Hr 77.[address].08 [address] abdomen 11/24/2024 Findings: The lung bases are clear. Calcified left ventricular apical aneurysm is present as before, measuring 42 mm. Gallbladder is within normal limits. There is a 23 mm left adrenal nodule with noncontrast Hounsfield units of -10. Scarring involving the left kidney. Left renal calcifications measuring less than 5 mm diameter are unchanged. Solid organs are otherwise within normal limits. No bowel obstruction, pneumoperitoneum, or pneumatosis. No acute fracture. IMPRESSION: 1. Left adrenal adenoma. 2. Left renal scarring and nonobstructing calcifications. 3. Stable left ventricular apical aneurysm. EXAMINATION: US THYROID 06/15/24 HISTORY: E05.90 - Thyrotoxicosis, unspecified without thyrotoxic crisis or storm TECHNIQUE: Real-time grayscale ultrasound imaging was performed and images were reviewed. COMPARISON: There are no prior studies for comparison. FINDINGS: SIZE: The right thyroid lobe measures 5.2 x 2.7 x 2.3 cm. The left thyroid lobe measures 5.9 x 2.7 x 2.3 cm. The isthmus measures 7 mm. FLOW: Flow to the gland is normal. ECHOGENICITY: The echotexture of the gland is heterogeneous. NODULES: Multiple bilateral thyroid nodules are identified as described below: Nodule #: 1 Location: Isthmus measuring 4 x 4 x 7 mm Shape: Wider than tall (0 points) Margins: Smooth (0 points) Echotexture: Hypoechoic (2 points) Composition: Solid (2 points) Calcifications: None (0 points) Total points: 4 TIRADS: TR4: Moderately suspicious. Nodule #: 2 Location: Upper pole of the right thyroid lobe measuring 6 x 4 x 4 mm Shape: Wider than tall (0 points) Margins: Smooth (0 points) Echotexture: Very hypoechoic (3 points) Composition: Mixed (1 point) Calcifications: None (0 points) Total points: 4 TIRADS: TR4: Moderately suspicious. Nodule #: 3 Location: Midportion of the left thyroid lobe measuring 9 x 8 x 9 mm Shape: Round (0 points) Margins: Smooth (0 points) Echotexture: Very hypoechoic (3 points) Composition: Mixed (1 point) Calcifications: Macrocalcifications (1 point) Total points: 5 TIRADS: TR4: Moderately suspicious. Nodule #: 4 Location: Midportion of the left thyroid lobe measuring 6 x 7 x 5 mm Shape: Taller than wide (3 points) Margins: Smooth (0 points) Echotexture: Very hypoechoic (3 points) Composition: Mixed (1 point) Calcifications: None (0 points) Total points: 7 TIRADS: TR5: Highly suspicious. Nodule #: 5 Location: Lower pole of the left thyroid lobe measuring 2.2 x 1.4 x 2.0 cm. Shape: Wider than tall (0 points) Margins: Smooth (0 points) Echotexture: Hypoechoic (2 points) Composition: Mostly solid (2 points) Calcifications: Punctate calcifications (3 points) Total points: 7 TIRADS: TR5: Highly suspicious. IMPRESSION: Multiple bilateral thyroid nodules as described. Ultrasound-guided fine-needle aspiration of the most suspicious nodules at the mid and lower pole of the left thyroid lobe (nodules #4 and 5) is recommended. CT ABDOMEN AND PELVIS WITH CONTRAST 07/19/24 CLINICAL INFORMATION: [Lower abdominal pain. COMPARISON: None available. TECHNIQUE: Multidetector volumetric images were obtained from the superior aspect of the liver through the pubic symphysis following administration 85 mL of Omnipaque 350 intravenous contrast. Sagittal and coronal reformatted images were obtained on the technologist's workstation. Oral contrast: Yes This CT examination was performed using dose optimization techniques as appropriate, variously including the following: *Automated exposure control *Adjustment of mA and/or kV according to patient size (this includes techniques or standardized protocols for targeted exams where dose is matched to indication/reason for exam; i.e. extremities or head) *Use of iterative reconstruction technique. DLP: 688 mGy centimeter. FINDINGS: LUNG BASES: No acute airspace disease. LIVER, GALLBLADDER, AND BILIARY TREE: Liver measures 14 cm. No focal lesion. The portal veins and intrahepatic portion of the IVC are patent. No intrahepatic biliary ductal dilatation. Punctate calcifications in the dependent portion of the gallbladder lumen. No pericholecystic fluid collection or gallbladder wall thickening. No extrahepatic biliary ductal dilatation. PANCREAS: No focal lesion. No main pancreatic ductal dilatation. Punctate calcifications in the head of the pancreas. No peripancreatic fluid collections. SPLEEN: 10 cm. No focal lesion. ADRENAL GLANDS: There is a 2.2 cm nodular lesion in the left adrenal gland which measures 63 Hounsfield units at the portal venous phase. No nodular lesions, right adrenal gland. KIDNEYS AND URETERS: Renal cortical defect/prior surgical procedure involving the upper mid portion of the left kidney. Punctate calcifications in the corticomedullary junction left kidney. No hydronephrosis in the right kidney. No gross renal mass. There is a 1 cm exophytic cystic lesion in the anterior midportion of the left kidney. There is a 0.6 cm exophytic cyst in the posterior upper pole left kidney.. BLADDER: Fluid-filled. GASTROINTESTINAL TRACT: No intestinal obstruction pattern. Appendix is normal. No pneumatosis intestinalis. No intestinal wall thickening. No ascites. No pneumoperitoneum Hiatal hernia, small to moderate size.. ABDOMINAL WALL: Diastases abdominal rectus muscles in the periumbilical region. LYMPH NODES: Nonspecific prominent lymph nodes in the retroperitoneum VASCULAR: There is a focal 4.5 cm crescent-shaped calcification in the cardiac apex. Calcified plaques in the aorta and iliac arteries without aneurysm or dissection. Calcified plaques in the splenic artery. PELVIC VISCERA: Calcifications at the seminal vesicles. Prostate gland is not enlarged versus prior procedure. OSSEOUS STRUCTURES: Multilevel thoracic and lumbar spondylosis more conspicuous at L5-S1. Osteopenia versus osteoporosis. No gross lytic or blastic lesions. No acute fracture or gross listhesis. CT/CT abdomen pelvis w IV con IMPRESSION: Probable nonobstructing nephrolithiasis left kidney. Prior surgical procedure left kidney. Exophytic cystic lesions, left kidney. Cholelithiasis. Focal crescent-shaped calculation the cardiac apex suggesting calcified pseudoaneurysm versus akinetic/prior infarct. 2.2 cm nodule, left adrenal gland. Hiatal hernia. Fleischner guidelines were followed. EXAMINATION: [place] THYROID IMAGING AND UPTAKE 09/22/24 CLINICAL INFORMATION: E04.2 - Nontoxic multinodular goiter COMPARISON: Correlation is made with a thyroid ultrasound dated 06/15/2024. TECHNIQUE: Following the oral administration of 288 microcuries of I-123 sodium iodide, thyroid uptake was performed and expressed as a percentage of the administrated dose. Gamma scintillation camera images of the thyroid in the anterior and right and left anterior oblique views were obtained using a pinhole collimator following the administration of 10.0 mCi Tc-99m pertechnetate. FINDINGS: There is the suggestion of mildly decreased uptake at the level lower pole of the left thyroid lobe, likely corresponding to the dominant nodule seen in this region on ultrasound. Activity is otherwise homogeneous. The uptake is 12.35% at 4 hours and 31.4% at 24 hours. NM/NM thyroid w uptake IMPRESSION: 1. Mildly decreased uptake at the lower pole of the left thyroid lobe, likely corresponding to the dominant nodule seen on prior ultrasound. 2. Normal thyroid uptake at 4 and 24 hours. Electronically signed by: Uri Robertson MD 09/23/2024 09:10 AM EDT RP EXAMINATION: DXA BONE DENSITY AXIAL 09/21/24 HISTORY: M81.0 - Age-related osteoporosis without current pathological fracture TECHNIQUE: [employer] Dual energy absorptiometry (DEXA) of the lumbar spine, total left hip, and femoral neck was performed. COMPARISON: There are no prior studies for comparison. FINDINGS: The bone mineral density of the lumbar spine is 0.989 g/cm2, corresponding to a T-score of -1.9, and a Z-score of -2.3. This is indicative of osteopenia. The bone mineral density of the left total hip is 0.874 g/cm2, corresponding to a T-score of -1.6, and a Z-score of -1.6. This is indicative of osteopenia. The bone mineral density of the left femoral neck is 0.824 g/cm2, corresponding to a T-score of -1.9, and a Z-score of -1.5. This is indicative of osteopenia. FRACTURE RISK: The FRAX index suggests a risk of major osteoporotic fracture of 6.4%, and of hip fracture 0.9%. IMPRESSION: Based on bone mineral density, and according to World Health Organization (WHO) criteria, the diagnosis is consistent with osteopenia. [facility] Medical History Osteopenia Multiple thyroid nodules Subclinical hyperthyroidism Asthma Plantar fasciitis Past heart attack High cholesterol Surgical History (Updated 01/10/25 @ 10:09 by ZULEIMA Llanos) History of removal of skin mole Family History (Updated 01/10/25 @ 10:09 by ZULEIMA Llanos) Father No problems noted. Mother No problems noted. Social History Housing: House Alcohol intake: current Patient Tobacco Use Status: Former Tobacco user Cigarette Packs Per Day: 2.5 Years Smoked: 12 e-Cigarette/Vaping Use: Never Used Second Hand Smoke Exposure: No Substance Use Type: Marijuana service: Yes Current occupational status: retired Current occupational exposures/hazards: No Cognitive needs: No Hearing needs: No Vision needs: No Physical Exam Vital Signs: Last Vital Signs Pulse 76 01/10/25 10:07 BP 106/70 01/10/25 10:07 Pulse Ox 96 01/10/25 10:07 Oxygen Delivery Method Room Air 01/10/25 10:07 BMI result Body Mass Index 33.5 Const General: cooperative, comfortable and no acute distress Nutritional Appearance: average body habitus Orientation/consciousness: patient oriented x3 HEENT Face and sinus: Yes face symmetric Eyes Pupils: Equal, round and reactive pupils present Neck Neck: Yes full ROM Resp Effort & Inspection: normal respiratory effort and able to speak in complete sentences Neuro General: patient oriented x3 and moves all extremities Cranial nerves: Yes Equal, round and reactive pupils present, Yes Normal accommodation reflex present, Yes Normal facial strength present, Yes Midline tongue present, Yes Ability to bilaterally rotate head present and Yes Ability to bilaterally elevate shoulders present Cognition (Neuro): normal cognition Gait exam (Neuro): Normal gait present Motor exam (neuro): 5/5 motor strength present throughout and Abnormal muscle tone present Psych Appearance: grossly normal Speech and movement: Normal speech and movement present Thought process: Normal thought process present Insight: Good insight present (Psych) Results Reviewed Results Reviewed: September2024 HST c/w AHI of 15.7 and OAI is 6.9, oxygen nadirs to below 89% for 79min. CT abdomen IMPRESSION: 1. Left adrenal adenoma. 2. Left renal scarring and nonobstructing calcifications. 3. Stable left ventricular apical aneurysm. Assessment & Plan Assessment & Plan (1) Adrenal nodule: Code(s): E27.9 - Disorder of adrenal gland, unspecified Category: Medical Plan: 59-year-old male also found to have left adrenal gland 2.[address] abdomen done for abdominal pain in July 2024. It said it was 63 Hounsfield unit on postcontrast but we will need percentage washouts and precontrast Hounsfield units as well. 09/27/2024: Labs showed aldosterone was not elevated at 4, renin 0.39, normal plasma metanephrine and normetanephrine levels. DHEA-S of 143, baseline cortisol 7.9, with a ACTH of 14. 10/03/2024: Dexamethasone suppression test showed cortisol of 1.8 with a dexamethasone level of 299. This is equivocal. Acth 6. Recent CT scan 11/24/2024 showed stable 2.3 cm left adrenal nodule, with a density of -10 Hounsfield units, reported as left adrenal adenoma. In regard to his labs, urine cortisol was slightly elevated at 77.1 mcg per 24 hours, and his salivary cortisol was 0.08, which is normal. His lab remains to be equivocal, I think the most likely diagnosis of it is a nonfunctioning left adrenal adenoma given the size of the nodule, the less than 4 cmlack of symptoms concerning for hormonal excess as well as the radiological features. Differential diagnosis would be subclinical Miranda syndrome, which could be suspected as this patient have slightly above normal 24 hours urine cortisol, but he also have a normal dexamethasone suppression test (at the cut off), on a normal midnight salivary cortisol. Plan: Continue annual imaging and biochemical log marker for development of symptoms or biochemical progression. (2) Multiple thyroid nodules: Code(s): E04.2 - Nontoxic multinodular goiter Category: Medical Plan: See below (3) Subclinical hyperthyroidism: Code(s): E05.90 - Thyrotoxicosis, unspecified without thyrotoxic crisis or storm Category: Medical Plan: 58-year-old male with a history of subclinical hyperthyroidism who is coming in today to establish care. Apparently was diagnosed some 20 years ago and has had low TSH levels. Labs from March 2024 03/25/2024 showed TSH low at 0.16, with free T4 of 1.28 normal, labs repeated 04/11/2024 showed TSH improved but still low at 0.20, free T4 1.21, labs repeated 05/12/2024 showed TSH again slightly improved but low at 0.22, with free T4 of 1.19. Given that he is seeing his TSH has been low for many years, unlikely this is because of thyroiditis. No prior contrast exposure. He has a history of heart disease with an NH, hence could possibly consider treatment in his case. Otherwise he is less than 65 years of age and TSH levels are greater than 0.1, and no history of osteoporosis. Ultrasound of the thyroid 06/15/2024, I reviewed the images myself which showed a subcentimeter solid, hypoechoic isthmus nodule, a right midpole subcentimeter cyst, another right midpole solid, hypoechoic TR 4 category nodule that is subcentimeter in size, a right superior pole mixed cystic solid subcentimeter nodule measuring 0.6 cm in the largest dimension which has some colloid in it, I left midpole subcentimeter mixed cystic solid nodule with a solid component that has some calcifications in a, however this is a well-defined nodule which is still subcentimeter size, I would categorize this is a TR 4 nodule, and 0.7 cm subcentimeter left midpole solid, hypoechoic, taller than wide, irregular margin nodule TR 5 category nodule (high suspicion), with the largest dominant left lower pole 2.2 cm nodule which is mixed cystic solid, hypoechoic/isoechoic, with a apparently questionable punctate echogenic foci, however I do not see this on landing just myself. I would categorize this has a TR 3 nodule instead of a TR 5. 07/11/2024: TSH 0.31, free T4 normal at 1.15, total T3 normal at 109, undetectable TSI, TPO and TSH receptor antibodies 09/22/2024: Thyroid uptake and scan showed mildly increased uptake at 24:00 hours at around 31%. Overall diffuse uptake, however cold spot in the left lower lobe. This is consistent with a 2.2 cm left dominant lower lobe nodule noted on ultrasound previously 10/19/2024: Status post FNA of the left lower 2.2 cm thyroid nodule which came back as AUS with architectural atypia, Carlton category 3, Afirma came back as benign (4% risk of malignancy). At this point we will plan to repeat ultrasound of the thyroid in summer. While like I mentioned before he does have some concerns for low bone density and history of NH before, where you can consider treating subclinical hyperthyroidism, his most recent levels look improved. We will plan to repeat blood work in summer. If he has any symptoms blood work can be repeated sooner. Given patient's lack of symptoms concerning for hypothyroidism, at this point, I agree with my previous colleague decision to repeat labs/imaging in a year. Plan: -ordered thyroid ultrasound to be done September 2025 -plan to repeat blood work in summer Plan 30 minutes minutes spent reviewing previous records, labs, imaging, education and documenting in the chart Coding Level of Care Code Est Pt Level 3 (37261) Diagnoses Adrenal nodule E27.9 Multiple thyroid nodules E04.2 Subclinical hyperthyroidism E05.90
[2025-01-10 10:07] VITALS: BP 106/70; PULSE 76; O2SAT 96; BMI 33.5
== END 2025-01-10 10:34 | disposition home or self-care (01) ==
LOC: HO.ENCR 10:03
PROVIDERS: PCP Physician Assistant; Visit Provider Student in an Organized Health Care Education/Training Program
DX: E27.9 Disorder of adrenal gland, unspecified (principal); E04.2 Nontoxic multinodular goiter; E05.90 Thyrotoxicosis, unspecified without thyrotoxic crisis or storm
CPT/HCPCS: 99213

== ENCOUNTER 2025-01-11 08:14 | Outpatient (REF) | payer OTHER, SELFPAY ==
--- NOTE | ~2025-01-11 | XR_ITS ---
EXAMINATION: XR CHEST CLINICAL INFORMATION: R05.9 - Cough, unspecified COMPARISON: Previous CT of the abdomen and pelvis most recent November 2024 TECHNIQUE: 2 views of the chest were obtained. FINDINGS: Lungs are clear. No consolidation or pulmonary edema. No pleural effusion or pneumothorax. Cardiac and mediastinal contours are stable. Curvilinear calcification projects over the left ventricular apex. When compared with prior CT this likely corresponds to a calcified LV apex aneurysm and probably unchanged. Degenerative changes of the spine. Mild to moderate L1 vertebral body compression fracture. XR/XR chest 2V IMPRESSION: No evidence for acute disease in the chest. Electronically signed by: Xiomara Laws MD 01/11/2025 08:38 AM EDT
[2025-01-11 09:44] LABS: Ferritin 120 ng/mL (20-250)
[2025-01-11 09:57] LABS: Folate 7.7 ng/mL (> or = 4.0); Vitamin B12 440 pg/mL (200-900)
[2025-01-11 10:56] LABS: Free T4 (Free Thyroxine) 1.16 ng/dL (0.71-1.85)
== END 2025-01-11 08:15 | disposition home or self-care (01) ==
LOC: HO.XRAY 08:14
PROVIDERS: Absent Provider Physician Assistant Medical; PCP Physician Assistant; Visit Provider Physician Assistant
DX: G47.19 Other hypersomnia (principal); R05.9 Cough, unspecified; J45.909 Unspecified asthma, uncomplicated; R53.83 Other fatigue; Z13.6 Encounter for screening for cardiovascular disorders; Z13.1 Encounter for screening for diabetes mellitus
CPT/HCPCS: 36415; 71046; 82306; 82607; 82728; 82746; 83036; 83090; 83921; 84207; 84425; 84439; 84443

== ENCOUNTER → 2025-01-11 08:18 | Outpatient (BNV) | payer OTHER, SELFPAY | PROVIDERS: Absent Provider Physician Assistant Medical; PCP Physician Assistant; Visit Provider Radiology Diagnostic Radiology | DX: R05.9 Cough, unspecified (principal) | CPT/HCPCS: 71046 ==

== ENCOUNTER 2025-01-12 10:01 | Outpatient (AMB) | payer OTHER, SELFPAY ==
--- NOTE | 2025-01-12 10:03 | MHC.OFFVIS ---
Vital Signs 01/12/25 10:04 Height 5 ft 10 in Weight 233 lb BMI 33.4 BP 126/76 Blood Pressure Location Rt brachial Position Sitting Pulse 74 Pulse Source Pulse Oximeter Pulse Oximetry (%) 94 Oxygen Delivery Method Room Air Intake Visit Reasons: Lower abdomen pains Intake Note: Patient new consult for Lower abdomen pains Patient cc: C.O. generalized abd pain, typically worse in the lower quadrants. Pt also reports having intermittent constipation w/o rectal bleeding. Pt states that he is still actively taking GLP 1 therapy. Negative cologuard within the last year. Hx of colonoscopy + EGD ~ age 44. Pt states he previously took PPI but stopped it as he didn't feel that it was necessary anymore. 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 Accompanied by: Self / Same As Patient Allergies amoxicillin Allergy (Intermediate, Verified 01/10/25 10:08) Abdominal Pain bee venom protein (honey bee) Allergy (Intermediate, Verified 01/10/25 10:08) Swelling droperidol (From Inapsine) Allergy (Intermediate, Verified 01/10/25 10:08) lock jaw prochlorperazine (From Compazine) Allergy (Intermediate, Verified 01/10/25 10:08) lock jaw shellfish derived Allergy (Intermediate, Verified 01/10/25 10:08) Hives Medication List - Last Reconciled 01/12/25 by Zaina Velasco CNP albuterol sulfate 90 mcg/actuation 1 puff inhalation Q4-6H PRN aspirin 81 mg PO DAILY atorvastatin 20 mg PO DAILY budesonide-formoterol 160-4.5 mcg/actuation (Symbicort) 2 puffs inhalation BID PRN lisinopril 2.5 mg PO DAILY metoprolol succinate ER 50 mg PO DAILY montelukast (Singulair) 10 mg PO BEDTIME tamsulosin 0.4 mg PO BID tirzepatide (weight loss) (Zepbound) 7.5 mg (0.5 mL) subcut QWEEK HPI HPI Lower abdomen pains: Details: Patient is a 59-year-old male with PMH of asthma, hyperlipidemia, hyperthyroidism, osteopenia, history of [place]. Referred by PCP for further evaluation of abdominal pain Pt presents for evaluation of long-standing abdominal pain, ongoing for ~30 years, previously attributed to presumed kidney stones but later found negative; gallstones noted on earlier imaging, for which general surgery deferred cholecystectomy. Pain described as intermittent, previously diffuse but with increased intensity noted recently in the lower quadrant and anjum-umbilical area. Pt reports occasional bulging of the umbilicus earlier this year, raising concern for hernia. Denies current abdominal pain; pain has improved in recent months, particularly since initiation of tirzepatide (Zepbound) for weight management. Bowel patterns also improved: before Zepbound, had daily but often loose AM stools (sometimes multiple, with initial hard followed by loose), now reports once daily, formed, soft stools; had some recent constipation offset by increased dietary fiber. CRC screening: pt had at least two colonoscopies before age 49 for diagnostic purposes due to chronic GI symptoms (no polyps or significant findings), most recent stool-based CRC screening (Cologuard) in Mar 2024 was negative. PMH notable for asthma (recently less controlled), h/o [place] in 1995, hypothyroidism (not on meds), and chronic gastropathy. Cyclical vomiting syndrome dx'd in the past (episodes of severe nausea, vomiting, and dehydration requiring hospitalization, last episode reportedly >=5 years ago). Appetite WNL, no recent nausea, vomiting. Denies heartburn or dysphagia. PMH notable for asthma (recently less controlled), h/o [place] in 1995, hypothyroidism (not on meds), and chronic gastropathy. Established with both Pulmonary, Cardiology respectively with upcoming appts. No FHx of colon or gastric CA. Patient denies: fever/chills, n/v, appetite changes, pyrosis, regurgitation,dysphasia, unintentional wt loss or melena/hematochezia. Social hx: -ETOH use, 1-2x/week -smokes marijuana daily, denies other recreational drug use -former smoker, cessation 1995 - family hx as below -denies personal hx of CA PFSH Medical History (Updated 01/12/25 @ 11:21 by Zaina Velasco CNP) Bowel habit changes Cyclic vomiting syndrome Chronic abdominal pain Osteopenia Multiple thyroid nodules Subclinical hyperthyroidism Asthma Plantar fasciitis Past heart attack High cholesterol Surgical History (Updated 01/12/25 @ 10:11 by Reinier Hightower [facility]) H/O esophagogastroduodenoscopy H/O colonoscopy History of removal of skin mole Family History Father No problems noted. Mother No problems noted. Social History Housing: House Alcohol intake: current Patient Tobacco Use Status: Former Tobacco user Cigarette Packs Per Day: 2.5 Years Smoked: 12 e-Cigarette/Vaping Use: Never Used Second Hand Smoke Exposure: No Substance Use Type: Marijuana service: Yes Current occupational status: retired Current occupational exposures/hazards: No Cognitive needs: No Hearing needs: No Vision needs: No Physical Exam Vital Signs: Last Vital Signs Pulse 74 01/12/25 10:04 BP 126/76 01/12/25 10:04 Pulse Ox 94 01/12/25 10:04 Oxygen Delivery Method Room Air 01/12/25 10:04 BMI result Body Mass Index 33.4 Const General: healthy appearing, no acute distress and well developed Nutritional Appearance: average body habitus Orientation/consciousness: patient oriented x3 HEENT Head: Yes normal to inspection, Yes normocephalic and Yes atraumatic Face and sinus: Yes normal facial exam Eyes General: appearance normal, both eyes and all related structures Neck Neck: Yes normal visual inspection Resp Effort & Inspection: normal respiratory effort, able to speak in complete sentences, no tracheal deviation and symmetric chest movement Auscultation: clear to auscultation bilaterally Cardio Jugular venous distension: no JVD Rate: regular rate Rhythm: regular rhythm Heart sounds: S1 normal heart sound present, S2 normal heart sound present, no gallops and no murmurs GI Inspection: Yes normal to inspection and No distended Palpation (GI): Soft to palpation, not firm, nontender and No hepatosplenomegaly present Auscultation: normal bowel sounds Neuro General: patient oriented x3 Gait exam (Neuro): Normal gait present Psych Appearance: grossly normal Mental Status: mental status grossly normal Speech and movement: Normal speech and movement present Affect: normal affect Attitude: cooperative Thought process: Normal thought process present Thought content: Normal thought content present Insight: Good insight present (Psych) Judgement: Good judgement present (Psych) Results Reviewed Results Reviewed: Date of Service: 10/20/24 Procedure(s): US abdomen complete Accession Number(s): [id number] cc: Werner London MD~ CLINICAL HISTORY: K80.20 - Calculus of gallbladder without cholecystitis without obstruction --- Additional Notes or Special Instructions: History of bilateral flank pain, calcified stone in gallbladder, history of US abdomen complete Comparison: 07/19/2024 CT Findings: The visualized pancreas is normal. The aorta and inferior vena cava are normal caliber. Liver measures 17.7 cm in length and demonstrates normal echogenicity.. There is no intrahepatic bile duct dilatation. The common duct is 3 mm in diameter. A few small gallstones. There is no sonographic [place] sign. The right kidney is 10.8 cm in length. The left kidney is 13.2 cm in length. Midpolar left renal scarring. Two small (up to 5 mm) either parenchymal calcifications or nonobstructive stones at level of the midpole of the left kidney. Small number of bilateral simple renal cysts measuring up to 17 mm. No hydronephrosis. Spleen measures 13.2 cm in length. No ascites. IMPRESSION: Mild hepatosplenomegaly. A few tiny gallstones. Midpolar left renal scarring. Two small (up to 5 mm) either parenchymal calcifications or nonobstructive stones at level of the midpole of the left kidney. This document has been electronically signed by: Jessica Hurd MD on 10/20/2024 10:14:30 Assessment & Plan Assessment & Plan (1) Chronic abdominal pain: Code(s): R10.9 - Unspecified abdominal pain; G89.29 - Other chronic pain Category: Medical Plan: Longstanding pain, improved on med and with fiber. Umbilical hernia without acute abnl seen on exam or imaging (CT A/P 07/19/2024) Additional Testing: None at this time; if pain recurs or worsens?consider abdl/pelvic CT w/ hernia protocol or targeted U/S. Medication Management: Continue tirzepatide as prescribed for weight management; no new meds. Lifestyle Recommendations: Maintain high-fiber diet, adequate hydration, regular physical activity; monitor for recurrence of pain, bulge, GI sx (N/V, constipation, obstipation, anorexia, wt loss). Follow-Up: PRN for sx recurrence or concern; recontact GI or PCP if new/worsening sx. (2) Cholelithiases: Code(s): K80.20 - Calculus of gallbladder without cholecystitis without obstruction Category: Medical Qualifiers: Biliary obstruction: without biliary obstruction Cholecystitis presence: without cholecystitis Cholelithiasis location: gallbladder Qualified Code(s): K80.20 - Calculus of gallbladder without cholecystitis without obstruction Plan: Incidental on imaging; not currently symptomatic; surgery deferred. Additional Testing: None unless recurrence of biliary symptoms (colic, jaundice, fever). Medication Management: None indicated. Lifestyle Recommendations: Continue healthy diet; avoid known triggers for biliary pain. Follow-Up: Routine f/u w/ PCP; GI/surgical re-eval if biliary symptoms recur. (3) Cyclic vomiting syndrome: Code(s): R11.15 - Cyclical vomiting syndrome unrelated to migraine Category: Medical Plan: No active symptoms or exacerbations >5 yrs. Additional Testing: None unless new episodes arise. Medication Management: None currently. Lifestyle Recommendations: Monitor for recurrence; maintain hydration, minimize triggers. Follow-Up: PRN. (4) Bowel habit changes: Code(s): R19.4 - Change in bowel habit Category: Medical Plan: Bowel patterns improved, but risk for medication-induced constipation persists. Negative cologuard 04/13/24. No alarm features Additional Testing: None unless chronic constipation develops. Medication Management: None at this time. Lifestyle Recommendations: Continue increased fiber, fluids, physical activity; monitor stool frequency/character; alert if <3 BMs/wk, hard stools, or other change. Follow-Up: PRN; reinforce at next PCP review. Plan Follow-up as needed Time: I spent a total of 32 minutes on the date of encounter which includes: Preparing to see the patient (reviewed previous documentation, test results and medical history) Performing a medically appropriate exam and/or evaluation Ordering medications, tests, and procedures Documenting clinical information in the health record Coding Level of Care Code New Pt New Pt Level 3 (88741) Patient Type New Diagnoses Chronic abdominal pain R10.9; G89.29 Calculus of gallbladder without cholecystitis without obstruction K80.20 Biliary obstruction: without biliary obstruction Cholecystitis presence: without cholecystitis Cholelithiasis location: gallbladder Cyclic vomiting syndrome R11.15 Bowel habit changes R19.4
[2025-01-12 10:04] VITALS: BP 126/76; PULSE 74; O2SAT 94; BMI 33.4
== END 2025-01-12 11:03 | disposition home or self-care (01) ==
LOC: HO.HGI 10:02
PROVIDERS: PCP Physician Assistant; Visit Provider Nurse Practitioner Family
DX: R10.9 Unspecified abdominal pain (principal); G89.29 Other chronic pain; K80.20 Calculus of gallbladder without cholecystitis without obstruction; R11.15 Cyclical vomiting syndrome unrelated to migraine; R19.4 Change in bowel habit
CPT/HCPCS: 99203

== ENCOUNTER → 2025-01-15 20:30 | Outpatient (REF) | payer OTHER, SELFPAY | LOC: HO.SL 20:30 | PROVIDERS: PCP Physician Assistant; Visit Provider Physician Assistant Medical | DX: G47.33 Obstructive sleep apnea (adult) (pediatric) (principal) | CPT/HCPCS: 95811 ==

== ENCOUNTER → 2025-01-15 21:44 | Outpatient (BNV) | payer OTHER, SELFPAY | PROVIDERS: PCP Physician Assistant; Visit Provider Psychiatry & Neurology Neurology | DX: G47.33 Obstructive sleep apnea (adult) (pediatric) (principal) | CPT/HCPCS: 95811 ==

== ENCOUNTER 2025-02-07 09:24 | Outpatient (AMB) | payer OTHER, SELFPAY ==
--- NOTE | 2025-02-07 09:32 | A.OFFVIS_ITS ---
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 Required: No Accompanied by: Self / Same As Patient Allergies amoxicillin Allergy (Intermediate, Verified 02/07/25 09:36) Abdominal Pain bee venom protein (honey bee) Allergy (Intermediate, Verified 02/07/25 09:36) Swelling droperidol (From Inapsine) Allergy (Intermediate, Verified 02/07/25 09:36) lock jaw prochlorperazine (From Compazine) Allergy (Intermediate, Verified 02/07/25 09:36) lock jaw shellfish derived Allergy (Intermediate, Verified 02/07/25 09:36) Hives Medication List - Last Reconciled 02/07/25 by Dejan Mejia MD albuterol sulfate 90 mcg/actuation 1 puff inhalation Q4-6H PRN aspirin 81 mg PO DAILY atorvastatin 20 mg PO DAILY budesonide-formoterol 160-4.5 mcg/actuation (Symbicort) 2 puffs inhalation BID PRN lisinopril 2.5 mg PO DAILY metoprolol succinate ER 50 mg PO DAILY montelukast (Singulair) 10 mg PO BEDTIME tamsulosin 0.4 mg PO BID tirzepatide (weight loss) (Zepbound) 7.5 mg (0.5 mL) subcut QWEEK HPI Comments Details: 58-year-old male here today for follow up of subclinical hyperthyroidism, MNG and left adrenal nodule. Seen in the office today for management of obesity. He has other endocrine problems that were not addressed today. 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 Throughout this period, the patient has experienced episodes of digestive shutdown, resulting in the loss of about 20 pounds during each episode, which occurs a few times annually. Despite these losses, the patient regains the lost weight and accumulates additional pounds over time. Over three decades, the patient?s weight increased from 180 pounds to nearly 250 pounds, gaining approximately 50 pounds overall. The patient's sedentary lifestyle due to their occupation contributed significantly to the weight gain. Despite consultations with dietary professionals and diabetes educators, the patient continues to struggle with cravings and portion control. Currently, the patient is on a low- fat diet and has been prescribed Zepbound to assist with weight loss, unfortunately his insurance is not paying for it, and his pain over the counter which does not seem to be sustainable for him. DIET: Over the past five months, the patient has reduced pasta intake and now includes one to two servings of vegetables in each meal. PHYSICAL ACTIVITY: The patient attempts to exercise at least twice weekly and maintains physical activity through yard work. Additionally, the patient has engaged in physical therapy for plantar fasciitis and knee problems, which have limited more intense physical activity. SLEEP: The patient is undergoing treatment for obstructive sleep apnea, which includes the use of a CPAP machine. MEDICATIONS: The patient is on atorvastatin 20 mg for cholesterol management, and Zepbound currently at 7.5 mg. REVIEW OF SYSTEMS: - General: No fever or night sweats reported. - Respiratory: Under treatment for sleep apnea with CPAP machine. - GI: Reports constipation; no recent heartburn or abdominal pain. - Musculoskeletal: History of plantar fasciitis, knee problems, and arthritis. - Neuropsychiatric: No history of stroke or head trauma. - Endocrine: No significant cold or heat intolerance reported. Physical exam: CV: RRR, no murmur. No edema. Resp: Lungs clear to auscultation bilaterally Abdomen: Soft, nontender. nondistended Extremities/Neuro: No weakness or tremor of outstretched hands PFSH Medical History Bowel habit changes Cyclic vomiting syndrome Chronic abdominal pain Osteopenia Multiple thyroid nodules Subclinical hyperthyroidism Asthma Plantar fasciitis Past heart attack High cholesterol Surgical History H/O esophagogastroduodenoscopy H/O colonoscopy History of removal of skin mole Family History Father No problems noted. Mother No problems noted. Social History Housing: House Alcohol intake: current Patient Tobacco Use Status: Former Tobacco user Cigarette Packs Per Day: 2.5 Years Smoked: 12 e-Cigarette/Vaping Use: Never Used Second Hand Smoke Exposure: No Substance Use Type: Marijuana service: Yes Current occupational status: retired Current occupational exposures/hazards: No Cognitive needs: No Hearing needs: No Vision needs: No Physical Exam Vital Signs: Last Vital Signs Pulse 96 02/07/25 09:33 BP 130/80 02/07/25 09:33 Pulse Ox 95 02/07/25 09:33 Oxygen Delivery Method Room Air 02/07/25 09:33 BMI result Body Mass Index 32.3 Assessment & Plan Assessment & Plan (1) Obesity (BMI 30-39.9): Code(s): E66.9 - Obesity, unspecified Category: Medical Plan: Patient has longstanding obesity that seems to be multifactorial in the setting of previous dietary habits, sedentary lifestyle and work life. He has currently make some changes in his diet, has been exercising as tolerated and he also is being pain for zepbound over the counter which does not seem that he can continue to afford. Plan Lifestyle Modification: - Nutrition: Continue dietary changes emphasizing portion control and reducing high-calorie foods. Maintain reduced pasta intake and ensure adequate vegetable consumption. Consider referral to a dietitian for additional guidance. - Physical Activity: Encourage increasing exercise frequency beyond twice a week as tolerated. Pharmacotherapy: - Continue Zepbound 7.5mg weekly with plans to increase dosage to 10 mg as tolerated, pending insurance approval. - Continue atorvastatin for cholesterol management. Comorbidity Management: - Continue monitoring and management of hyperlipidemia with atorvastatin. - Monitor and manage CHRISTINA with current treatments. Patient Education: - Educate the patient about the potential side effects of Zepbound, including the risk of pancreatitis and the importance of seeking immediate medical attention if symptoms occur. Follow-up: - Schedule follow-up in six months to assess weight management progress and adjust the treatment plan as needed. If insurance issues arise, consider prior authorization or direct purchase options for zepbound. Plan 35 minutes spent reviewing previous records, labs, imaging, education and documenting in the chart Medications: Refilled tirzepatide (weight loss) (Zepbound) 7.5 mg (0.5 mL) subcut QWEEK 2 mL 3RF Coding Level of Care Code Complex visit Add On G2211 Diagnoses Obesity (BMI 30-39.9) E66.9
[2025-02-07 09:33] VITALS: BP 130/80; PULSE 96; O2SAT 95; BMI 32.3
== END 2025-02-07 09:54 | disposition home or self-care (01) ==
LOC: HO.ENCR 09:25
PROVIDERS: PCP Physician Assistant; Visit Provider Student in an Organized Health Care Education/Training Program
DX: E66.9 Obesity, unspecified (principal); Z68.32 Body mass index [BMI] 32.0-32.9, adult
CPT/HCPCS: 99214; G2211

== ENCOUNTER 2025-03-14 10:29 | Outpatient (AMB) | payer OTHER, SELFPAY ==
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
[2025-03-14 10:51] VITALS: BP 124/84; PULSE 51; O2SAT 96; BMI 32.4
== END 2025-03-14 11:42 | disposition home or self-care (01) ==
LOC: HO.HSMS 10:30
PROVIDERS: PCP Physician Assistant; Visit Provider Physician Assistant Medical
DX: G47.19 Other hypersomnia (principal); G47.34 Idiopathic sleep related nonobstructive alveolar hypoventilation
CPT/HCPCS: 99214